=== PATIENT | male | born 1980 | race Caucasian/White ===

== ENCOUNTER 2018-09-28 16:48 | Inpatient (IN) | payer MEDICARE, MEDICAID, SELFPAY ==
[2018-09-28 16:49] VITALS: BP 147/102; PULSE 83; RESP 18; TEMP 36.7; O2SAT 96; BMI 21.9
--- NOTE | 2018-09-28 17:10 | EKG12_ITS ---
Test Reason : HYPERGLYCEMIA Blood Pressure : / mmHG Vent. Rate : 075 BPM Atrial Rate : 075 BPM P-R Int : 158 ms QRS Dur : 088 ms QT Int : 362 ms P-R-T Axes : 047 011 006 degrees QTc Int : 404 ms Normal sinus rhythm Nonspecific T Wave Abnormality Abnormal ECG Confirmed by HARVEY ESPINOZA, MEAGAN ([id number]), photographic editor HORACE SU ([id number]) on 10/01/2018 1:13:12 PM Referred By: BLAYNE Confirmed By:MEAGAN GABRIEL MD
[2018-09-28 17:15] LABS: Bedside Glucose > 500 mg/dL (70-110)
[2018-09-28] MEDS: 0.9% Normal Saline 1,000 ML 1000 ML IV ×2 (17:37→19:00)
[2018-09-28 17:42] LABS: Absolute Lymphocyte Count 1.76 X10^3/ul (0.83-4.51); Absolute Neutrophil Count 4.3 X10^3/uL (2.0-7.7); Basophil# 0.04 X10^3/uL; Basophil% 0.6 % (0-1); Eosinophil# 0.28 X10^3/uL; Eosinophils% 4.2 % (0-5); Hematocrit 38.9 % (40-54); Hemoglobin 14.2 g/dl (13.0-16.5); Lymphocyte # 1.76 X10^3/ul (4.0); Lymphocyte % 26.3 % (19-41); Mean Corp Hgb Conc 36.5 g/gl (32-36); Mean Corpuscular Hgb 29.6 pg (27.0-32.0); Monocyte% 4.5 % (0-10); Neutrophil # 4.28 X10^3/uL (2.7-7.7); Neutrophil % 64.1 % (47-70); POSITIVE COUNT NO; POSITIVE DIFFERENTIAL NO; POSITIVE MORPHOLOGY NO; Platelet Count 185 K/mm3 (150-450); RBC Distribution Width CV 12.2 % (11.6-14.6); RBC Distribution Width SD 35.5 fl (35.1-43.9); White Blood Count 6.7 K/mm3 (4.4-11.0)
[2018-09-28 17:43] LABS: International Normalized Ratio 0.9; Prothrombin Time (Protime)PT. 12.3 SECONDS (11.7-14.9)
[2018-09-28 17:44] LABS: Partial Thromboplast Time 24.4 Seconds (24.1-36.2)
[2018-09-28 17:52] LABS: Bacteria 0 SEEN /hpf (None Seen); Mucous, Urine 0 SEEN /hpf (<or=2+); Red Blood Cells-Urine 0 SEEN /hpf (0-5); Squamous Epithelial Cells - UA 0 SEEN /hpf (0-5); White Blood Cells 0 SEEN /hpf (0-5)
[2018-09-28 17:57] LABS: Color, Urine Yellow (Yellow); Glucose, Dipstick 1000 mg/dl (Normal); Ketone-Dipstick 5 mg/dl (Negative); Leukocyte Esterase-Dipstick Negative /ul (Negative); Nitrite-Dipstick Negative (Negative); Occult Blood-Urine Negative /ul (Negative); Protein-Dipstick Negative (Negative); Specific Gravity, Urine 1.005 (1.002-1.030); Urine Bilirubin Dipstick Negative (Negative); Urine Clarity Clear (Clear); Urine Urobilinogen Normal (Normal); Urine pH 6.5 (5.0 - 8.0)
[2018-09-28 18:02] LABS: AST(SGOT) 47 U/L (15-37); Alanine Aminotransfer ALT/SGPT 92 U/L (16-61); Albumin, Serum 3.3 g/dL (3.2-5.0); Alkaline Phosphatase 278 U/L (45-117); Anion Gap 7 (5-15); BUN 20 mg/dL (7-18); BUN/Creat Ratio 14.3 RATIO (10-20); Bilirubin, Direct 0.17 mg/dL (0.00-0.30); Calcium,Total 9.2 mg/dL (8.5-10.1); Chloride 86 mmol/L (98-107); EST Glomerular Filtration Rate 60 mL/min (>60); Est Glom Filt Rate - Afr Amer 73 mL/min (>60); Estimated Creatinine Clearance 74.17 ml/min; Globulin 3.7 g/dL (2.2-4.2); Glucose 682 mg/dL (74-106); Lipase 90 U/L (73-393); Potassium 3.4 mmol/L (3.5-5.1); Sodium Level 125 mmol/L (136-145)
--- NOTE | 2018-09-28 18:02 | ED.RN ---
GLUCOSE [id number], DR. CISNEROS AWARE.
[2018-09-28 18:17] LABS: Lactic Acid 0.8 mmol/L (0.4-2.0)
--- NOTE | 2018-09-28 19:02 | ED.DCSUM_ITS ---
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 He went to urgent care because of urinary frequency. He has had a 20 pound weight loss over the past couple weeks. He states he is thirsty all the time. They took his blood sugar was greater than 600. He has no history of diabetes. No fevers. Physical Examination: Afebrile vital signs stable Gen: Well-nourished well-developed Head: Normocephalic atraumatic Eyes: Perrl EOMI ENT: TMs clear no rhinorrhea dry mucous membranes Neck: Supple no lymphadenopathy no JVD nontender CVS: Regular rate rhythm no murmurs normal S1-S2 Respiratory: No distress clear to auscultation bilaterally chest nontender Abdomen: Soft nontender nondistended normal bowel sounds no masses Back: Nontender Extremity: Nontender no edema Skin: Normal color no rash Neuro: alert orientated ?3 CN II-XII intact normal strength sensation Psych: Normal affect normal mood Test Results: Initial BG T greater than 500. CBC normal. Chemistries sodium 125 potassium 3.4 chloride of 86 BUN 21.4. Blood sugar noted to be 682. Lactic acid normal. Ketones negative. Emergency Department Course and Treatment: Appears to be in HHS in a catabolic state. he received IV fluids 2 L and then started on insulin drip. Patient will be admitted to the hospital. Impression: 1. Hyperosmolar hyperglycemic state 2. Critical care time 35 minutes This note was generated with [employer] dictation software. It may contain incorrect words, spelling, and punctuation that were not noted in review of the chart prior to signing ED Disposition - Plan for ED Patient: Referrals: Fitz Gómez MD [Primary Care Provider] -
[2018-09-28 19:28] VITALS: BP 149/94; PULSE 66; RESP 18; O2SAT 97
[2018-09-28 19:36] LABS: Bedside Glucose 473 mg/dL (70-110)
--- NOTE | 2018-09-28 19:36 | HP.PCM_ITS ---
History of Present Illness Date of Admission: 09/28/18 Chief Complaint: Frequency of urination, excessive thirst, lethargy. The patient is a 38 year old M with a past medical history of Asperger's syndrome and lives in a correction. Patient works with [employer] here in [facility]. He went to an urgent care facility today on account of urinary frequency. Patient states his been having urinary frequency and frequent thirst for the past few months as well as significant weight loss. Patient and his family thinks he is lost about 20 pounds since May 2017. Patient states he has been telling the staff in the correction where he lives about his symptoms but nothing had been done about it. His blood sugar was checked in the urgent care center today and was more than 600. Patient has no history of diabetes and he is adopted and does not know his family history. Parents also could not give any further information about family history. Review of symptoms otherwise negative. On admission in the ED, blood glucose was 682. Vitals were otherwise stable. CBC was unremarkable and BMP was significant for potassium of 3.4 and sodium of 125. Bicarb was 32 and anion gap was 7 and creatinine was 1.4. AST and ALT as well as ALP were also mildly elevated. He has been admitted to be managed for hyperglycemia and newly diagnosed diabetic. [] Past Medical History Allergies clindamycin Adverse Reaction (Verified 09/28/18 16:52) Unknown Home Medications: Ambulatory Orders Medication Instructions Recorded Fluoxetine [Prozac] 60 mg PO DAILY 05/23/13 Methylphenidate HCl [Methylin] 20 mg PO DAILY 05/23/13 Propranolol HCl [Inderal LA] 80 mg PO BID 05/23/13 Ranitidine [Zantac] 150 mg PO BID 05/23/13 Risperidone [Risperidone M-Tab] 1 mg PO DAILY 05/23/13 Sumatriptan Succinate [Imitrex] 50 mg PO .X1 PRN PRN 12/17/16 Amitriptyline HCl 25 mg PO QHS 09/28/18 Surgical History: no surgical history Psychiatric History: No pertinent psych hx, - - Asperger's syndrome Lives: - - in correction Smoking Status: Current every day smoker Tobacco Use: Cigarettes Alcohol: None Drugs: None - *Family History Maternal History Items: - - unknown, patient is adopted Paternal History Items: Unknown Review of Systems Constitutional: Reports: Malaise, Weakness, Weight Change - weight loss, Fatigue. Denies: Anorexia, Chills, Fever, Night Sweats Eyes: Denies: Blurred vision HEENT: Denies: Head Aches, Sinus Congestion, Sinus Drainage Cardiovascular: Denies: Chest Pain, Palpitations Respiratory: Denies: Cough, Shortness of breath at rest, Sputum production Gastrointestinal: Denies: Abdominal Pain, Diarrhea, Dyspepsia, Nausea, Vomiting Genitourinary: Reports: Frequency. Denies: Dysuria, Hesitancy Musculoskeletal: Denies: Joint Pain, Joint Tenderness Skin: Denies: Rash, Wounds Neurological: Denies: Numbness, Tingling, Focal weakness Psychiatric: Denies: Anxiety, Depression, Homicidal Ideations, Suicidal Ideations Endocrine: Reports: Polydipsia, Polyuria Hematologic/ Lymphatic: Denies: Easy Bruising, Easy Bleeding VTE Information - Inpt Only VTE Present on Admission: No VTE Pharm Prophylaxis ordered?: Yes - Physical Exam General: Alert, Oriented x3, Cooperative, No apparent distress, Lethargic HEENT: Atraumatic, PERRLA, EOMI, Normocephalic Oral: Dry Mucosa Neck: Supple, No JVD, Negative Carotid Bruits Lungs: Clear to auscultation, Normal air movement, No rhonchi, No wheeze, No rales Cardiovascular: Regular rate, Regular Rhythm, Normal S1, Normal S2, No murmurs Abdomen: Bowel Sounds Present, Soft, Non Tender, Non-Distended, No Hepato- splenomegaly Extremities: No clubbing, No cyanosis, No edema, Capillary Refill Less than 3 Seconds Skin: No rashes, No breakdown Musculoskeletal: No Tenderness to Palpation of Joints or Extremities Lymphatic: No Cervical, Supraclavicular, or Inguinal Adenopathy Neurological: Cranial nerves II-XII grossly intact, Neuro grossly intact, Motor Exam 5/5 strength throughout Psych/Mental Status: Flat Affect, Alert and oriented to time, place, person, mood and affect Vital Signs Temp Pulse Resp BP Pulse Ox 98.0 F 66 18 149/94 H 97 09/28/18 16:49 09/28/18 19:28 09/28/18 19:28 09/28/18 19:28 09/28/18 19:28 Oxygen Delivery Method Room Air Weight: 161 lb 9.581 oz Body Mass Index (BMI) 21.9 Laboratory Tests Past 24 Hrs 09/28/18 09/28/18 09/28/18 17:25 17:25 17:25 WBC 6.7 RBC 4.80 Hgb 14.2 Hct 38.9 L MCV 81.0 MCH 29.6 MCHC 36.5 H RDW 12.2 RDW Differential 35.5 Plt Count 185 MPV 10.0 Immature Gran % (Auto) 0.300 Neut % (Auto) 64.1 Lymph % (Auto) 26.3 [place] % (Auto) 4.5 Eos % (Auto) 4.2 Baso % (Auto) 0.6 Absolute Neuts (auto) 4.3 Absolute Lymphs (auto) 1.76 Total Counted Not Reportable PT 12.3 INR 0.9 APTT 24.4 Sodium 125 L Potassium 3.4 L Chloride 86 L Carbon Dioxide 32.0 Anion Gap 7 BUN 20 H Creatinine 1.40 H Estim Creat Clear Calc 74.17 Est GFR (MDRD) Af Amer 73 Est GFR (MDRD) Non-Af 60 BUN/Creatinine Ratio 14.3 Glucose 682 H* Lactic Acid Calcium 9.2 Total Bilirubin 0.80 Direct Bilirubin 0.17 AST 47 H ALT 92 H Alkaline Phosphatase 278 H Total Protein 7.0 Albumin 3.3 Globulin 3.7 Lipase 90 Urine Color Urine Clarity Urine pH Ur Specific [place] Urine Protein Urine Glucose (UA) Urine Ketones Urine Occult Blood Urine Nitrite Urine Bilirubin Urine Urobilinogen Ur Leukocyte Esterase Urine RBC Urine WBC Ur Squamous Epith Cells Urine Bacteria Urine Mucus Acetone Level 09/28/18 09/28/18 09/28/18 17:25 17:25 17:46 WBC RBC Hgb Hct MCV MCH MCHC RDW RDW Differential Plt Count MPV Immature Gran % (Auto) Neut % (Auto) Lymph % (Auto) [place] % (Auto) Eos % (Auto) Baso % (Auto) Absolute Neuts (auto) Absolute Lymphs (auto) Total Counted PT INR APTT Sodium Potassium Chloride Carbon Dioxide Anion Gap BUN Creatinine Estim Creat Clear Calc Est GFR (MDRD) Af Amer Est GFR (MDRD) Non-Af BUN/Creatinine Ratio Glucose Lactic Acid 0.8 Calcium Total Bilirubin Direct Bilirubin AST ALT Alkaline Phosphatase Total Protein Albumin Globulin Lipase Urine Color Yellow Urine Clarity Clear Urine pH 6.5 Ur Specific [place] 1.005 Urine Protein Negative Urine Glucose (UA) 1000 H Urine Ketones 5 H Urine Occult Blood Negative Urine Nitrite Negative Urine Bilirubin Negative Urine Urobilinogen Normal Ur Leukocyte Esterase Negative Urine RBC 0 SEEN Urine WBC 0 SEEN Ur Squamous Epith Cells 0 SEEN Urine Bacteria 0 SEEN Urine Mucus 0 SEEN Acetone Level NEGATIVE POC Glucose 09/28/18 17:10 POC Glucose > 500 H* Assessment/Plan 38-year-old male admitted with a complaint of weight loss, polyuria and polydipsia. 1. Hyperglycemia in a newly diagnosed diabetic * Blood sugar was 682 on admission. * Sodium was 125 and anion gap was only 7 with bicarb of 32. * Hydrated with IV fluid normal saline at 250 cc/h. Started on insulin drip. We will continue until blood sugar normalizes. * Check A1c. * will check C peptide and RAFAEL autoantibodies to help see if its type 1 or type 2 diabetes mellitus * to start on oral metformin once blood sugar trends down and Cr improves * choice of additional oral antidiabetic and/or insulin to be determined per A1C * Consult dietitian for advice about diabetic diet. * Also consult case management for discharge planning as patient lives in a correction. 2. Newly diagnosed diabetes mellitus: as under 1. 3. Hyponatremia: * Sodium is 125. This is likely due to hyperglycemia * Sodium corrected for glucose of 682 is 134. * Continue hydration with IV fluid normal saline. * 4. Hypokalemia: Potassium is 3.4. Will replace and monitor. 5. WARD: Creatinine is 1.4. This is likely prerenal due to dehydration from frequency and polyuria. Hydrate with IV fluid normal saline and monitor. 6. Asperger's syndrome: On fluoxetine, methylphenidate, amitriptyline and Risperdal. DVT prophylaxis: Lovenox Code Visit Inpatient E&M: 34887 Init Hosp L3
[2018-09-28 20:11] VITALS: BMI 21.9
[2018-09-28 20:12] VITALS: BP 133/96; PULSE 67; RESP 18; TEMP 36.5; O2SAT 98
[2018-09-28 20:15] VITALS: BMI 21.4
[2018-09-28 20:16] LABS: Bedside Glucose 433 mg/dL (70-110)
[2018-09-28 20:19] VITALS: PULSE 69
[2018-09-28 21:50] LABS: Bedside Glucose 293 mg/dL (70-110)
[2018-09-28 21:51] LABS: Hemoglobin A1c 14.4 % (4.2-6.3)
[2018-09-28 22:18] VITALS: BP 150/94; PULSE 91; RESP 26
[2018-09-28] MEDS: Propranolol LA 80 MG Capsule PO (22:36)
[2018-09-28] MEDS: Famotidine 20 MG Tablet PO (22:36)
[2018-09-28] MEDS: Amitriptyline 25 MG Tablet PO (22:43)
[2018-09-28 22:50] LABS: Bedside Glucose 227 mg/dL (70-110)
[2018-09-28 23:14] VITALS: PULSE 64
[2018-09-28 23:25] LABS: Bedside Glucose 195 mg/dL (70-110)
[2018-09-29] VITALS (12 sets, daily range): BP systolic 118–153; BP diastolic 86–101; PULSE 65–87; RESP 16–20; TEMP 36.3–37.2; O2SAT 95–97
[2018-09-29 00:20] LABS: Bedside Glucose 194 mg/dL (70-110)
[2018-09-29 01:26] LABS: Bedside Glucose 152 mg/dL (70-110)
[2018-09-29 02:21] LABS: Bedside Glucose 114 mg/dL (70-110)
[2018-09-29] MEDS: Dext 5%-0.45% NS 1,000 ML 150 ML IV (03:09)
[2018-09-29 04:06] LABS: Bedside Glucose 121 mg/dL (70-110)
[2018-09-29 04:11] LABS: Bedside Glucose 205 mg/dL (70-110)
[2018-09-29] MEDS: Insulin Lispro 100 UNIT/ML INSULN.PEN SC ×5 (04:22→22:19)
[2018-09-29] MEDS: 0.9% NaCl Peripheral Flush Adult/Peds IV (05:02)
[2018-09-29 06:30] LABS: Absolute Lymphocyte Count 2.32 X10^3/ul (0.83-4.51); Absolute Neutrophil Count 3.9 X10^3/uL (2.0-7.7); Basophil# 0.03 X10^3/uL; Basophil% 0.4 % (0-1); Eosinophils% 5.6 % (0-5); Hematocrit 35.8 % (40-54); Hemoglobin 12.9 g/dl (13.0-16.5); Lymphocyte # 2.32 X10^3/ul (4.0); Lymphocyte % 32.5 % (19-41); Mean Corpuscular Hgb 28.7 pg (27.0-32.0); Mean Corpuscular Volume 79.6 fL (80-94); Monocyte# 0.46 X10^3/uL; Monocyte% 6.5 % (0-10); Neutrophil # 3.91 X10^3/uL (2.7-7.7); Neutrophil % 54.9 % (47-70); Platelet Count 191 K/mm3 (150-450); RBC Distribution Width CV 11.9 % (11.6-14.6); RBC Distribution Width SD 33.9 fl (35.1-43.9); White Blood Count 7.1 K/mm3 (4.4-11.0)
[2018-09-29 06:35] LABS: POSITIVE COUNT NO; POSITIVE DIFFERENTIAL NO; POSITIVE MORPHOLOGY NO
[2018-09-29 07:00] LABS: Bedside Glucose 240 mg/dL (70-110)
[2018-09-29 07:07] LABS: ALB/GLOB Ratio 0.8 RATIO (0.9-2.4); AST(SGOT) 81 U/L (15-37); Alanine Aminotransfer ALT/SGPT 84 U/L (16-61); Albumin, Serum 2.6 g/dL (3.2-5.0); Alkaline Phosphatase 215 U/L (45-117); Anion Gap 10 (5-15); BUN 15 mg/dL (7-18); Chloride 99 mmol/L (98-107); Creatinine, Serum 0.94 mg/dL (0.70-1.30); EST Glomerular Filtration Rate 95 mL/min (>60); Est Glom Filt Rate - Afr Amer 115 mL/min (>60); Estimated Creatinine Clearance 108.36 ml/min; Globulin 3.1 g/dL (2.2-4.2); Glucose 220 mg/dL (74-106); Potassium 2.9 mmol/L (3.5-5.1); Protein, Total 5.7 g/dL (6.4-8.2); Sodium Level 139 mmol/L (136-145)
[2018-09-29] MEDS: Loratadine 10 MG Tablet PO (08:59)
[2018-09-29] MEDS: Famotidine 20 MG Tablet PO ×2 (08:59→22:20)
[2018-09-29] MEDS: RisperiDONE 1 MG Tablet PO (08:59)
[2018-09-29] MEDS: FLUoxetine 20 MG Capsule 60 MG PO (08:59)
[2018-09-29] MEDS: Propranolol LA 80 MG Capsule PO ×2 (08:59→22:20)
[2018-09-29] MEDS: Methylphenidate HCl 5 MG Tablet 10 MG PO ×2 (09:48→15:00)
[2018-09-29] MEDS: Rizatriptan Benzoate 10 MG Tablet PO ×2 (10:54→15:43)
[2018-09-29 11:01] LABS: Bedside Glucose 270 mg/dL (70-110)
--- NOTE | 2018-09-29 11:06 | US_ITS ---
STUDY: ABDOMINAL ULTRASOUND - RIGHT UPPER QUADRANT REASON FOR VISIT: Male, 38 years old. Elevated liver profile TECHNIQUE: Ultrasound evaluation of the right upper quadrant was performed with real-time and static dick-scale imaging. TECHNICAL QUALITY: Adequate. COMPARISON: None. FINDINGS: Liver: The liver measures 16.4 cm. There is normal echogenicity of the liver. The bile ducts are within normal limits. There is hepatic color flow. The direction of portal flow is hepatopetal. There is no demonstrated mass lesion. Gallbladder: Normal distended gallbladder. The gallbladder wall measures 3 mm. There is a negative sonographic Fernández's sign. There is no pericholecystic fluid. There are no gallstones. Common Bile Duct (C.B.D.): The common bile duct measures 4 mm. Pancreas: Pancreatic head is normal. 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 Right Kidney: Normal size of the right kidney. The right kidney measures 10.3 x 4.6 x 4.3 cm. Normal renal cortex. The right cortex measures 1.4 cm. There are right renal cysts. There is no right hydronephrosis. US/Abdomen Limited IMPRESSION: Unremarkable right upper quadrant ultrasound without acute findings. No gallstones. Electronically Signed: Nikki Finney, at 20:47 EDT Tel , Service support ,
--- NOTE | 2018-09-29 11:15 | PCM.PROGNOTE ---
<Dayana Horta - Last Filed: 09/29/18 14:19> Subjective: Patient seen and examined. Feels improved. Denies further dry mouth, frequent urination or other associated symptoms. - Physical Exam General: Alert, Oriented x3, Cooperative HEENT: Atraumatic, PERRLA, EOMI, Normocephalic Neck: Supple, No JVD, Negative Carotid Bruits Lungs: Clear to auscultation, Normal air movement Cardiovascular: Regular rate, Regular Rhythm, Normal S1, Normal S2, No murmurs Abdomen: Bowel Sounds Present, Soft, Non Tender, Non-Distended Extremities: No clubbing, No cyanosis, No edema, Capillary Refill Less than 3 Seconds Skin: No rashes, No breakdown Musculoskeletal: No Tenderness to Palpation of Joints or Extremities Neurological: Cranial nerves II-XII grossly intact, Neuro grossly intact Psych/Mental Status: Normal Affect, Appropriate Vital Signs Temp Pulse Resp BP Pulse Ox 98.9 F 78 18 126/91 H 96 09/29/18 09:01 09/29/18 09:01 09/29/18 09:01 09/29/18 09:01 09/29/18 09:01 Oxygen Delivery Method Room Air Weight: 158 lb 8.198 oz Body Mass Index (BMI) 21.4 Intake and Output for Last 24 Hours 09/27/18 09/28/18 09/29/18 23:59 23:59 23:59 Intake Total 1149.8 / 1149.8 Balance 1149.8 / 1149.8 Laboratory Tests Past 24 Hrs 09/28/18 09/28/18 09/28/18 17:25 17:25 17:25 WBC 6.7 RBC 4.80 Hgb 14.2 Hct 38.9 L MCV 81.0 MCH 29.6 MCHC 36.5 H RDW 12.2 RDW Differential 35.5 Plt Count 185 MPV 10.0 Immature Gran % (Auto) 0.300 Neut % (Auto) 64.1 Lymph % (Auto) 26.3 [place] % (Auto) 4.5 Eos % (Auto) 4.2 Baso % (Auto) 0.6 Absolute Neuts (auto) 4.3 Absolute Lymphs (auto) 1.76 Total Counted Not Reportable PT 12.3 INR 0.9 APTT 24.4 Sodium 125 L Potassium 3.4 L Chloride 86 L Carbon Dioxide 32.0 Anion Gap 7 BUN 20 H Creatinine 1.40 H Estim Creat Clear Calc 74.17 Est GFR (MDRD) Af Amer 73 Est GFR (MDRD) Non-Af 60 BUN/Creatinine Ratio 14.3 Glucose 682 H* Hemoglobin A1c C-Peptide Lactic Acid Calcium 9.2 Total Bilirubin 0.80 Direct Bilirubin 0.17 GGT AST 47 H ALT 92 H Alkaline Phosphatase 278 H Total Protein 7.0 Albumin 3.3 Globulin 3.7 Albumin/Globulin Ratio Lipase 90 Urine Color Urine Clarity Urine pH Ur Specific [place] Urine Protein Urine Glucose (UA) Urine Ketones Urine Occult Blood Urine Nitrite Urine Bilirubin Urine Urobilinogen Ur Leukocyte Esterase Urine RBC Urine WBC Ur Squamous Epith Cells Urine Bacteria Urine Mucus [place] Level 09/28/18 09/28/18 09/28/18 17:25 17:25 17:25 WBC RBC Hgb Hct MCV MCH MCHC RDW RDW Differential Plt Count MPV Immature Gran % (Auto) Neut % (Auto) Lymph % (Auto) [place] % (Auto) Eos % (Auto) Baso % (Auto) Absolute Neuts (auto) Absolute Lymphs (auto) Total Counted PT INR APTT Sodium Potassium Chloride Carbon Dioxide Anion Gap BUN Creatinine Estim Creat Clear Calc Est GFR (MDRD) Af Amer Est GFR (MDRD) Non-Af BUN/Creatinine Ratio Glucose Hemoglobin A1c 14.4 H C-Peptide Lactic Acid 0.8 Calcium Total Bilirubin Direct Bilirubin GGT AST ALT Alkaline Phosphatase Total Protein Albumin Globulin Albumin/Globulin Ratio Lipase Urine Color Urine Clarity Urine pH Ur Specific [place] Urine Protein Urine Glucose (UA) Urine Ketones Urine Occult Blood Urine Nitrite Urine Bilirubin Urine Urobilinogen Ur Leukocyte Esterase Urine RBC Urine WBC Ur Squamous Epith Cells Urine Bacteria Urine Mucus [place] Level NEGATIVE 09/28/18 09/28/18 09/29/18 17:25 17:46 05:05 WBC 7.1 RBC 4.50 L Hgb 12.9 L Hct 35.8 L MCV 79.6 L MCH 28.7 MCHC 36.0 RDW 11.9 RDW Differential 33.9 L Plt Count 191 MPV 10.0 Immature Gran % (Auto) 0.100 Neut % (Auto) 54.9 Lymph % (Auto) 32.5 [place] % (Auto) 6.5 Eos % (Auto) 5.6 H Baso % (Auto) 0.4 Absolute Neuts (auto) 3.9 Absolute Lymphs (auto) 2.32 Total Counted Not Reportable PT INR APTT Sodium Potassium Chloride Carbon Dioxide Anion Gap BUN Creatinine Estim Creat Clear Calc Est GFR (MDRD) Af Amer Est GFR (MDRD) Non-Af BUN/Creatinine Ratio Glucose Hemoglobin A1c C-Peptide Pending Lactic Acid Calcium Total Bilirubin Direct Bilirubin GGT AST ALT Alkaline Phosphatase Total Protein Albumin Globulin Albumin/Globulin Ratio Lipase Urine Color Yellow Urine Clarity Clear Urine pH 6.5 Ur Specific [place] 1.005 Urine Protein Negative Urine Glucose (UA) 1000 H Urine Ketones 5 H Urine Occult Blood Negative Urine Nitrite Negative Urine Bilirubin Negative Urine Urobilinogen Normal Ur Leukocyte Esterase Negative Urine RBC 0 SEEN Urine WBC 0 SEEN Ur Squamous Epith Cells 0 SEEN Urine Bacteria 0 SEEN Urine Mucus 0 SEEN Acetone Level 09/29/18 09/29/18 05:05 05:05 WBC RBC Hgb Hct MCV MCH MCHC RDW RDW Differential Plt Count MPV Immature Gran % (Auto) Neut % (Auto) Lymph % (Auto) [place] % (Auto) Eos % (Auto) Baso % (Auto) Absolute Neuts (auto) Absolute Lymphs (auto) Total Counted PT INR APTT Sodium 139 Potassium 2.9 L Chloride 99 Carbon Dioxide 30.0 Anion Gap 10 BUN 15 Creatinine 0.94 Estim Creat Clear Calc 108.36 Est GFR (MDRD) Af Amer 115 Est GFR (MDRD) Non-Af 95 BUN/Creatinine Ratio 16.0 Glucose 220 H Hemoglobin A1c C-Peptide Lactic Acid Calcium 8.0 L Total Bilirubin 0.60 Direct Bilirubin GGT Pending AST 81 H ALT 84 H Alkaline Phosphatase 215 H Total Protein 5.7 L Albumin 2.6 L Globulin 3.1 Albumin/Globulin Ratio 0.8 L Lipase Urine Color Urine Clarity Urine pH Ur Specific [place] Urine Protein Urine Glucose (UA) Urine Ketones Urine Occult Blood Urine Nitrite Urine Bilirubin Urine Urobilinogen Ur Leukocyte Esterase Urine RBC Urine WBC Ur Squamous Epith Cells Urine Bacteria Urine Mucus [place] Level POC Glucose 09/29/18 09/29/18 09/29/18 10:50 06:33 04:07 POC Glucose 270 H 240 H 205 H 09/29/18 09/29/18 09/29/18 03:17 02:17 01:18 POC Glucose 121 H 114 H 152 H 09/29/18 09/28/18 09/28/18 00:15 23:17 22:15 POC Glucose 194 H 195 H 227 H 09/28/18 09/28/18 09/28/18 21:17 20:07 19:23 POC Glucose 293 H 433 H 473 H* 09/28/18 17:10 POC Glucose > 500 H* Medical Necessity - Tobacco Use Smoking Status: Current every day smoker Tobacco Use: Cigarettes Assessment/Plan 1. HHS in the context of new diagnosis diabetes-hemoglobin A1c 14.4%. Glucose on admission 682. Continue Lantus 20 units subcu daily and Humalog ACHS sliding scale insulin. Glucose significantly improved. Patient lives in long-term and will have assistance administering insulin. Unclear etiology of new diagnosis. R/O secondary causes. CT abdomen pending to assess pancreas. Patient's antipsychotic regimen, specifically risperidone is known to increase insulin resistance and diminished insulin secretion. However this would not account for HA1C 14.4%. C-peptide pending. Check anti RAFAEL antibodies. 2. Elevated AST/ALT/alkaline phosphatase-unclear etiology. Right upper quadrant ultrasound and CT of abdomen pending. Hepatitis panel ordered. 3. Hyponatremia-secondary to #1. Resolved. 4. Hypokalemia-secondary to #1. Replaced per protocol. Trend BMP. 5. Acute kidney injury-secondary to #1. Resolved with aggressive IV hydration. 6. Asperger's syndrome-continue home amitriptyline, fluoxetine, methylphenidate, risperidone. 7. Chronic migraines-continue propranolol, PRN rizatriptan. 8. Recent 20 pound weight loss-secondary to #1. Nutrition consult. DVT prophylaxis-Lovenox subcu This patient was seen by TERRI Estevez under the supervision of Dr. Strong. <Juan Strong - Last Filed: 09/29/18 14:37> Subjective: The patient was admitted with polyuria, polydipsia and polyphagia and blood sugar more than 600 consistent with new onset diabetes mellitus. Patient LFTs also elevated predominantly transaminases and alkaline phosphatase. Denies any prior history with liver disease, gallbladder or pancreas. Patient does not drink alcohol. Patient denies any substance use. Patient does not have history of viral hepatitis. Patient is on Maxalt for as needed migraine headache Patient's sugar is elevated. Patient is adopted therefore unclear about family history of diabetes mellitus. - Physical Exam General: Alert, Oriented x3, Cooperative HEENT: Atraumatic, PERRLA, EOMI, Normocephalic Neck: Supple, No JVD, Negative Carotid Bruits Lungs: Clear to auscultation, Normal air movement, No rhonchi, No wheeze, No rales Cardiovascular: Regular rate, Regular Rhythm, Normal S1, Normal S2, No murmurs Abdomen: Bowel Sounds Present, Soft, Non Tender Extremities: No edema, Capillary Refill Less than 3 Seconds Skin: No rashes, No breakdown Musculoskeletal: No Tenderness to Palpation of Joints or Extremities Neurological: Cranial nerves II-XII grossly intact, Deep Tendon Reflexes 2+/4 and Symmetrical, Neuro grossly intact, - Psych/Mental Status: Normal Affect, Appropriate Vital Signs Temp Pulse Resp BP Pulse Ox 98.9 F 78 18 126/91 H 96 09/29/18 09:01 09/29/18 09:01 09/29/18 09:01 09/29/18 09:01 09/29/18 09:01 Oxygen Delivery Method Room Air Weight: 158 lb 8.198 oz Body Mass Index (BMI) 21.4 Intake and Output for Last 24 Hours 09/27/18 09/28/18 09/29/18 23:59 23:59 23:59 Intake Total 1699.8 / 1699.8 Balance 1699.8 / 1699.8 Laboratory Tests Past 24 Hrs 09/28/18 09/28/18 09/28/18 17:25 17:25 17:25 WBC 6.7 RBC 4.80 Hgb 14.2 Hct 38.9 L MCV 81.0 MCH 29.6 MCHC 36.5 H RDW 12.2 RDW Differential 35.5 Plt Count 185 MPV 10.0 Immature Gran % (Auto) 0.300 Neut % (Auto) 64.1 Lymph % (Auto) 26.3 [place] % (Auto) 4.5 Eos % (Auto) 4.2 Baso % (Auto) 0.6 Absolute Neuts (auto) 4.3 Absolute Lymphs (auto) 1.76 Total Counted Not Reportable PT 12.3 INR 0.9 APTT 24.4 Sodium 125 L Potassium 3.4 L Chloride 86 L Carbon Dioxide 32.0 Anion Gap 7 BUN 20 H Creatinine 1.40 H Estim Creat Clear Calc 74.17 Est GFR (MDRD) Af Amer 73 Est GFR (MDRD) Non-Af 60 BUN/Creatinine Ratio 14.3 Glucose 682 H* Hemoglobin A1c C-Peptide Lactic Acid Calcium 9.2 Total Bilirubin 0.80 Direct Bilirubin 0.17 GGT AST 47 H ALT 92 H Alkaline Phosphatase 278 H Total Protein 7.0 Albumin 3.3 Globulin 3.7 Albumin/Globulin Ratio Lipase 90 TSH Urine Color Urine Clarity Urine pH Ur Specific [place] Urine Protein Urine Glucose (UA) Urine Ketones Urine Occult Blood Urine Nitrite Urine Bilirubin Urine Urobilinogen Ur Leukocyte Esterase Urine RBC Urine WBC Ur Squamous Epith Cells Urine Bacteria Urine Mucus [place] Level Hepatitis A IgM Ab Hepatitis A Ab Total Hep Bs Antigen Hep B Core Total Ab Hep B Core IgM Ab 09/28/18 09/28/18 09/28/18 17:25 17:25 17:25 WBC RBC Hgb Hct MCV MCH MCHC RDW RDW Differential Plt Count MPV Immature Gran % (Auto) Neut % (Auto) Lymph % (Auto) [place] % (Auto) Eos % (Auto) Baso % (Auto) Absolute Neuts (auto) Absolute Lymphs (auto) Total Counted PT INR APTT Sodium Potassium Chloride Carbon Dioxide Anion Gap BUN Creatinine Estim Creat Clear Calc Est GFR (MDRD) Af Amer Est GFR (MDRD) Non-Af BUN/Creatinine Ratio Glucose Hemoglobin A1c 14.4 H C-Peptide Lactic Acid 0.8 Calcium Total Bilirubin Direct Bilirubin GGT AST ALT Alkaline Phosphatase Total Protein Albumin Globulin Albumin/Globulin Ratio Lipase TSH Urine Color Urine Clarity Urine pH Ur Specific [place] Urine Protein Urine Glucose (UA) Urine Ketones Urine Occult Blood Urine Nitrite Urine Bilirubin Urine Urobilinogen Ur Leukocyte Esterase Urine RBC Urine WBC Ur Squamous Epith Cells Urine Bacteria Urine Mucus [place] Level NEGATIVE Hepatitis A IgM Ab Hepatitis A Ab Total Hep Bs Antigen Hep B Core Total Ab Hep B Core IgM Ab 09/28/18 09/28/18 09/28/18 17:25 17:25 17:46 WBC RBC Hgb Hct MCV MCH MCHC RDW RDW Differential Plt Count MPV Immature Gran % (Auto) Neut % (Auto) Lymph % (Auto) [place] % (Auto) Eos % (Auto) Baso % (Auto) Absolute Neuts (auto) Absolute Lymphs (auto) Total Counted PT INR APTT Sodium Potassium Chloride Carbon Dioxide Anion Gap BUN Creatinine Estim Creat Clear Calc Est GFR (MDRD) Af Amer Est GFR (MDRD) Non-Af BUN/Creatinine Ratio Glucose Hemoglobin A1c C-Peptide Pending Lactic Acid Calcium Total Bilirubin Direct Bilirubin GGT AST ALT Alkaline Phosphatase Total Protein Albumin Globulin Albumin/Globulin Ratio Lipase TSH Urine Color Yellow Urine Clarity Clear Urine pH 6.5 Ur Specific [place] 1.005 Urine Protein Negative Urine Glucose (UA) 1000 H Urine Ketones 5 H Urine Occult Blood Negative Urine Nitrite Negative Urine Bilirubin Negative Urine Urobilinogen Normal Ur Leukocyte Esterase Negative Urine RBC 0 SEEN Urine WBC 0 SEEN Ur Squamous Epith Cells 0 SEEN Urine Bacteria 0 SEEN Urine Mucus 0 SEEN [place] Level Hepatitis A IgM Ab Pending Hepatitis A Ab Total Pending Hep Bs Antigen Pending Hep B Core Total Ab Pending Hep B Core IgM Ab Pending 09/29/18 09/29/18 09/29/18 05:05 05:05 05:05 WBC 7.1 RBC 4.50 L Hgb 12.9 L Hct 35.8 L MCV 79.6 L MCH 28.7 MCHC 36.0 RDW 11.9 RDW Differential 33.9 L Plt Count 191 MPV 10.0 Immature Gran % (Auto) 0.100 Neut % (Auto) 54.9 Lymph % (Auto) 32.5 [place] % (Auto) 6.5 Eos % (Auto) 5.6 H Baso % (Auto) 0.4 Absolute Neuts (auto) 3.9 Absolute Lymphs (auto) 2.32 Total Counted Not Reportable PT INR APTT Sodium 139 Potassium 2.9 L Chloride 99 Carbon Dioxide 30.0 Anion Gap 10 BUN 15 Creatinine 0.94 Estim Creat Clear Calc 108.36 Est GFR (MDRD) Af Amer 115 Est GFR (MDRD) Non-Af 95 BUN/Creatinine Ratio 16.0 Glucose 220 H Hemoglobin A1c C-Peptide Lactic Acid Calcium 8.0 L Total Bilirubin 0.60 Direct Bilirubin GGT 667 H AST 81 H ALT 84 H Alkaline Phosphatase 215 H Total Protein 5.7 L Albumin 2.6 L Globulin 3.1 Albumin/Globulin Ratio 0.8 L Lipase TSH Urine Color Urine Clarity Urine pH Ur Specific [place] Urine Protein Urine Glucose (UA) Urine Ketones Urine Occult Blood Urine Nitrite Urine Bilirubin Urine Urobilinogen Ur Leukocyte Esterase Urine RBC Urine WBC Ur Squamous Epith Cells Urine Bacteria Urine Mucus [place] Level Hepatitis A IgM Ab Hepatitis A Ab Total Hep Bs Antigen Hep B Core Total Ab Hep B Core IgM Ab 09/29/18 09/29/18 05:05 14:10 WBC RBC Hgb Hct MCV MCH MCHC RDW RDW Differential Plt Count MPV Immature Gran % (Auto) Neut % (Auto) Lymph % (Auto) [place] % (Auto) Eos % (Auto) Baso % (Auto) Absolute Neuts (auto) Absolute Lymphs (auto) Total Counted PT INR APTT Sodium Potassium 3.3 L Chloride Carbon Dioxide Anion Gap BUN Creatinine Estim Creat Clear Calc Est GFR (MDRD) Af Amer Est GFR (MDRD) Non-Af BUN/Creatinine Ratio Glucose Hemoglobin A1c C-Peptide Lactic Acid Calcium Total Bilirubin Direct Bilirubin GGT AST ALT Alkaline Phosphatase Total Protein Albumin Globulin Albumin/Globulin Ratio Lipase TSH 0.95 Urine Color Urine Clarity Urine pH Ur Specific [place] Urine Protein Urine Glucose (UA) Urine Ketones Urine Occult Blood Urine Nitrite Urine Bilirubin Urine Urobilinogen Ur Leukocyte Esterase Urine RBC Urine WBC Ur Squamous Epith Cells Urine Bacteria Urine Mucus [place] Level Hepatitis A IgM Ab Hepatitis A Ab Total Hep Bs Antigen Hep B Core Total Ab Hep B Core IgM Ab POC Glucose 09/29/18 09/29/18 09/29/18 10:50 06:33 04:07 POC Glucose 270 H 240 H 205 H 09/29/18 09/29/18 09/29/18 03:17 02:17 01:18 POC Glucose 121 H 114 H 152 H 09/29/18 09/28/18 09/28/18 00:15 23:17 22:15 POC Glucose 194 H 195 H 227 H 09/28/18 09/28/18 09/28/18 21:17 20:07 19:23 POC Glucose 293 H 433 H 473 H* 09/28/18 17:10 POC Glucose > 500 H* Assessment/Plan This patient was seen in conjunction with TELETYPESETTER MONITOR, Dayana. I have independently interviewed and examined the patient and reviewed pertinent history, examination findings, laboratory and plan of management. I have reviewed the note and agree with the documented findings with the few additional points. In brief, patient is admitted for new diagnosis of diabetes with hyperosmolar hyperglycemic state. A1c 14.4%. Admitting glucose was 682. Glucose is relatively controlled. Glucose 222 in BMP. TSH normal potassium is still low 3.3. Patient LFT is elevated, AST 81, AST 84, ratio 1 is to 1. A/G ratio 0.8. Alkaline phosphatase 215. GGT 667. Right upper quadrant sonogram ordered. Patient does not have abdominal pain. I have discussed my assessment with TELETYPESETTER MONITORDayana and orders have been reviewed. Laboratory Results 09/29/18 05:05: Sodium 139, Potassium 2.9 L, Chloride 99, Carbon Dioxide 30.0, Anion Gap 10, BUN 15, Creatinine 0.94, Estim Creat Clear Calc 108.36, Est GFR (MDRD) Af Amer 115, Est GFR (MDRD) Non-Af 95, BUN/Creatinine Ratio 16.0, Glucose 220 H, Calcium 8.0 L, Total Bilirubin 0.60, AST 81 H, ALT 84 H, Alkaline Phosphatase 215 H, Total Protein 5.7 L, Albumin 2.6 L, Globulin 3.1, Albumin/Globulin Ratio 0.8 L 09/29/18 05:05: GGT 667 H 09/29/18 05:05: TSH 0.95 09/29/18 06:33: POC Glucose 240 H 09/29/18 10:50: POC Glucose 270 H 09/29/18 14:10: Potassium 3.3 L Code Visit Inpatient E&M: 53350 Subs Hosp L2
[2018-09-29 11:25] LABS: GGTP 667 U/L (15-85)
[2018-09-29 11:43] LABS: Thyroid Stim Hormone (TSH) 0.95 uIU/mL (0.358-3.74)
--- NOTE | 2018-09-29 12:08 | CT_ITS ---
STUDY: CT ABDOMEN AND PELVIS WITH CONTRAST REASON FOR EXAM: Male, 38 years old. New onset diabetes RADIATION DOSAGE (If Supplied By Facility): CTDIvol = ( 11.35 ) mGy, DLP = ( 1197.32 ) mGycm TECHNIQUE: Transaxial images were obtained from the dome of the diaphragm to the symphysis pubis without oral contrast. 100 IV Isovue 300 was administered. Sagittal and coronal images were reconstructed. Delayed imaging performed. Individualized dose optimization techniques were used for this CT. COMPARISON: None. FINDINGS: There is atelectasis in the bilateral lung bases. The visualized portions of the heart are within normal limits. Normal liver. Normal gallbladder and extrahepatic biliary system. Normal spleen. The pancreatic head and proximal pancreatic body are unremarkable. The distal pancreatic body and tail are not seen and may be atrophic or congenitally absent. Normal bilateral adrenal glands. There are simple cysts of the bilateral kidneys. No hydronephrosis or perinephric fluid collection. Normal visualized stomach. Normal small intestine. Normal colon. The appendix is visualized and appears normal. Normal abdominal aorta. Normal inferior vena cava. Normal retroperitoneum. Normal urinary bladder. There is a small umbilical hernia containing fat. Normal osseous structures. CT/Abdomen/Pelvis W IV Cont ONLY IMPRESSION: 1. No enhancing pancreatic mass. 2. Distal pancreatic atrophy or congenital absence. 3. Simple bilateral renal cysts. 4. Bibasilar atelectasis. Electronically Signed: Easton Murphy MD at 15:15 EDT , Service support ,
[2018-09-29 14:28] LABS: Potassium 3.3 mmol/L (3.5-5.1)
[2018-09-29 16:21] LABS: Bedside Glucose 258 mg/dL (70-110)
[2018-09-29] MEDS: hydrALAZINE 20 MG/ML Vial 5 MG IV (17:29)
[2018-09-29] MEDS: Glucerna Shake 120 ML LIQUID PO ×2 (17:29→22:20)
[2018-09-29] MEDS: Amitriptyline 25 MG Tablet PO (22:20)
[2018-09-29 22:31] LABS: Bedside Glucose 326 mg/dL (70-110)
[2018-09-30] VITALS (8 sets, daily range): BP systolic 127–149; BP diastolic 95–97; PULSE 66–91; RESP 15–18; TEMP 36.3–36.8; O2SAT 97–98
[2018-09-30] MEDS: Insulin Lispro 100 UNIT/ML INSULN.PEN SC ×4 (06:22→23:07)
[2018-09-30 06:45] LABS: Bedside Glucose 267 mg/dL (70-110)
[2018-09-30 07:22] LABS: ALB/GLOB Ratio 0.8 RATIO (0.9-2.4); AST(SGOT) 147 U/L (15-37); Alanine Aminotransfer ALT/SGPT 121 U/L (16-61); Albumin, Serum 2.6 g/dL (3.2-5.0); Alkaline Phosphatase 228 U/L (45-117); Anion Gap 6 (5-15); BUN 14 mg/dL (7-18); BUN/Creat Ratio 14.7 RATIO (10-20); Calcium,Total 8.3 mg/dL (8.5-10.1); Chloride 103 mmol/L (98-107); Creatinine, Serum 0.95 mg/dL (0.70-1.30); EST Glomerular Filtration Rate 94 mL/min (>60); Est Glom Filt Rate - Afr Amer 113 mL/min (>60); Estimated Creatinine Clearance 107.22 ml/min; Globulin 3.2 g/dL (2.2-4.2); Glucose 264 mg/dL (74-106); Potassium 3.4 mmol/L (3.5-5.1); Protein, Total 5.8 g/dL (6.4-8.2); Sodium Level 137 mmol/L (136-145)
[2018-09-30] MEDS: Glucerna Shake 120 ML LIQUID PO ×4 (08:07→20:45)
[2018-09-30] MEDS: Methylphenidate HCl 5 MG Tablet 10 MG PO (08:08)
[2018-09-30] MEDS: Enoxaparin 40 MG/0.4 ML Syringe SC (08:10)
[2018-09-30] MEDS: Famotidine 20 MG Tablet PO ×2 (08:10→20:45)
[2018-09-30] MEDS: FLUoxetine 20 MG Capsule 60 MG PO (08:10)
[2018-09-30] MEDS: Propranolol LA 80 MG Capsule PO ×2 (08:10→20:45)
[2018-09-30] MEDS: Loratadine 10 MG Tablet PO (08:10)
[2018-09-30] MEDS: RisperiDONE 1 MG Tablet PO (08:11)
[2018-09-30] MEDS: 0.9% Normal Saline 1,000 ML 150 ML IV ×2 (11:16→17:38)
[2018-09-30] MEDS: 0.9% NaCl Peripheral Flush Adult/Peds IV (11:16)
[2018-09-30 11:30] LABS: Bedside Glucose 392 mg/dL (70-110)
--- NOTE | 2018-09-30 12:17 | PN_ITS ---
<Dayana Horta - Last Filed: 09/30/18 12:25> Subjective: Patient seen and examined. Denies current complaints. Liver enzymes increased today. Patient requesting nicotine gum. Denies other current complaints. - Physical Exam General: Alert, Oriented x3, Cooperative HEENT: Atraumatic, PERRLA, EOMI, Normocephalic Neck: Supple, No JVD, Negative Carotid Bruits Lungs: Clear to auscultation, Normal air movement Cardiovascular: Regular rate, Regular Rhythm, Normal S1, Normal S2, No murmurs Abdomen: Bowel Sounds Present, Soft, Non Tender, Non-Distended Extremities: No clubbing, No cyanosis, No edema, Capillary Refill Less than 3 Seconds Skin: No rashes, No breakdown Musculoskeletal: No Tenderness to Palpation of Joints or Extremities Neurological: Cranial nerves II-XII grossly intact, Neuro grossly intact Psych/Mental Status: Normal Affect, Appropriate Vital Signs Temp Pulse Resp BP Pulse Ox 97.4 F L 79 18 135/97 H 98 09/30/18 08:04 09/30/18 09:00 09/30/18 08:04 09/30/18 08:04 09/30/18 08:04 Oxygen Delivery Method Room Air Weight: 158 lb 8.198 oz Body Mass Index (BMI) 21.4 Intake and Output for Last 24 Hours 09/28/18 09/29/18 09/30/18 23:59 23:59 23:59 Intake Total 2299.8 / 2299.8 200 / 200 Balance 2299.8 / 2299.8 200 / 200 Laboratory Tests Past 24 Hrs 09/29/18 09/30/18 09/30/18 14:10 06:16 06:16 Sodium 137 Potassium 3.3 L 3.4 L Chloride 103 Carbon Dioxide 28.0 Anion Gap 6 BUN 14 Creatinine 0.95 Estim Creat Clear Calc 107.22 Est GFR (MDRD) Af Amer 113 Est GFR (MDRD) Non-Af 94 BUN/Creatinine Ratio 14.7 Glucose 264 H Calcium 8.3 L Total Bilirubin 0.60 AST 147 H ALT 121 H Alkaline Phosphatase 228 H Total Protein 5.8 L Albumin 2.6 L Globulin 3.2 Albumin/Globulin Ratio 0.8 L Miscellaneous Test Pending POC Glucose 09/30/18 09/30/18 09/29/18 11:24 06:21 22:13 POC Glucose 392 H 267 H 326 H 09/29/18 16:12 POC Glucose 258 H Medical Necessity - Tobacco Use Smoking Status: Current every day smoker Tobacco Use: Cigarettes Assessment/Plan 1. HHS in the context of new diagnosis diabetes-hemoglobin A1c 14.4%. Glucose on admission 682. Glucose initially improved, now upper 200s to 300s. Increase Lantus to 15 units twice daily and Humalog ACHS to high-dose sliding scale. Patient [facility] and will have assistance administering insulin, however he is doing well administering on his own. CT of abdomen and pelvis completed to rule out secondary causes of new diagnosis diabetes. CT of abdomen shows no enhancing pancreatic mass. Distal pancreatic atrophy or congenital absence. Patient's antipsychotic regimen, specifically risperidone is known to increase insulin resistance and diminished insulin secretion. However this would not account for HA1C 14.4%. C-peptide, anti RAFAEL antibodies pending. Glucose monitoring testing supplies prescription in chart for discharge. 2. Elevated AST/ALT/alkaline phosphatase-unclear etiology. Right upper quadrant ultrasound normal. Hepatitis panel ordered. Suspect increased liver panel secondary to #1 as well as medication regimen. Resume IV fluids today and repeat liver panel in a.m. 3. Hyponatremia-secondary to #1. Resolved. 4. Hypokalemia-secondary to #1. Replaced per protocol. Trend BMP. 5. Acute kidney injury-secondary to #1. Resolved with aggressive IV hydration. 6. Asperger's syndrome-continue home amitriptyline, fluoxetine, methylphenidate, risperidone. 7. Chronic migraines-continue propranolol, PRN rizatriptan. 8. Recent 20 pound weight loss-secondary to #1. Nutrition consult. 9. Tobacco dependence-encourage cessation. Patient requesting nicotine gum. DVT prophylaxis-Lovenox subcu This patient was seen by TERRI Estevez under the supervision of Dr. Strong. <Juan Strong - Last Filed: 09/30/18 16:37> Subjective: Patient denies abdominal pain, shortness of breath or chest pain. Liver enzymes increased especially ALT. Patient denies any drug overdose or alcohol use. - Physical Exam General: Alert, Oriented x3, Cooperative HEENT: Atraumatic, PERRLA, EOMI, Normocephalic Neck: Supple, No JVD, Negative Carotid Bruits Lungs: Clear to auscultation, Normal air movement, No rhonchi, No wheeze, No rales Cardiovascular: Regular rate, No murmurs Abdomen: Bowel Sounds Present, Soft, Non Tender, Non-Distended Extremities: No edema, Capillary Refill Less than 3 Seconds Skin: No rashes, No breakdown Musculoskeletal: No Tenderness to Palpation of Joints or Extremities, Arthritic Changes Neurological: Cranial nerves II-XII grossly intact, Deep Tendon Reflexes 2+/4 and Symmetrical, Neuro grossly intact, Motor Exam 5/5 strength throughout Psych/Mental Status: Normal Affect, Appropriate Vital Signs Temp Pulse Resp BP Pulse Ox 98.3 F 68 18 127/95 H 97 09/30/18 14:00 09/30/18 15:00 09/30/18 14:00 09/30/18 14:00 09/30/18 14:00 Oxygen Delivery Method Room Air Weight: 158 lb 8.198 oz Body Mass Index (BMI) 21.4 Intake and Output for Last 24 Hours 09/28/18 09/29/18 09/30/18 23:59 23:59 23:59 Intake Total 2299.8 / 2299.8 1070 / 1070 Balance 2299.8 / 2299.8 1070 / 1070 Laboratory Tests Past 24 Hrs 09/30/18 09/30/18 06:16 06:16 Sodium 137 Potassium 3.4 L Chloride 103 Carbon Dioxide 28.0 Anion Gap 6 BUN 14 Creatinine 0.95 Estim Creat Clear Calc 107.22 Est GFR (MDRD) Af Amer 113 Est GFR (MDRD) Non-Af 94 BUN/Creatinine Ratio 14.7 Glucose 264 H Calcium 8.3 L Total Bilirubin 0.60 AST 147 H ALT 121 H Alkaline Phosphatase 228 H Total Protein 5.8 L Albumin 2.6 L Globulin 3.2 Albumin/Globulin Ratio 0.8 L Miscellaneous Test Pending POC Glucose 09/30/18 09/30/18 09/30/18 15:50 11:24 06:21 POC Glucose 211 H 392 H 267 H 09/29/18 22:13 POC Glucose 326 H Assessment/Plan This patient was seen in conjunction with SACK SEWER MACHINE, Dayana. I have independently interviewed and examined the patient and reviewed pertinent history, examination findings, laboratory and plan of management. I have reviewed the note and agree with the documented findings with the few additional points. In brief, patient is admitted for new diagnosis of diabetes with hyperosmolar hyperglycemic state. A1c 14.4%. Admitting glucose was 682. Glucose is relatively controlled, fluctuates between 250-350. TSH normal potassium is still low 3.3. Patient LFT is elevated, AST 81, AST 84, ratio 1 is to 1. A/G ratio 0.8. Alkaline phosphatase 215. GGT 667. Repeat LFT shows ALT 121, AST 147, alkaline phosphatase 228, worse than yesterday. Right upper quadrant sonogram reported as normal echogenicity liver. Monitor LFT tomorrow morning. Most probably it seems related to hypovolemia secondary to HHS and fluid shift. Expected to get LFT stable or improved tomorrow morning. I have discussed my assessment with SACK SEWER MACHINE, Dayana and orders have been reviewed. Clinical Impression(s) from Imaging Studies Abdomen Ultrasound 09/29/18 11:06 IMPRESSION: Unremarkable right upper quadrant ultrasound without acute findings. Abdomen/Pelvis CT 09/29/18 12:08 IMPRESSION: 1. No enhancing pancreatic mass. 2. Distal pancreatic atrophy or congenital absence. 3. Simple bilateral renal cysts. 4. Bibasilar atelectasis. Electronically Signed: Easton Murphy MD at 15:15 EDT , Service support , Laboratory Results 09/29/18 22:13: POC Glucose 326 H 09/30/18 06:16: Sodium 137, Potassium 3.4 L, Chloride 103, Carbon Dioxide 28.0, Anion Gap 6, BUN 14, Creatinine 0.95, Estim Creat Clear Calc 107.22, Est GFR (MDRD) Af Amer 113, Est GFR (MDRD) Non-Af 94, BUN/Creatinine Ratio 14.7, Glucose 264 H, Calcium 8.3 L, Total Bilirubin 0.60, AST 147 H, ALT 121 H, Alkaline Phosphatase 228 H, Total Protein 5.8 L, Albumin 2.6 L, Globulin 3.2, Albumin/Globulin Ratio 0.8 L 09/30/18 06:16: Miscellaneous Test Pending 09/30/18 06:21: POC Glucose 267 H 09/30/18 11:24: POC Glucose 392 H 09/30/18 15:50: POC Glucose 211 H Code Visit Inpatient E&M: 31395 Subs Hosp L2
[2018-09-30 16:01] LABS: Bedside Glucose 211 mg/dL (70-110)
[2018-09-30 20:06] LABS: HEPATITIS B SURFACE AG Negative (Negative); Hepatitis A AB, Total Negative (Negative); Hepatitis A IgM Antibody Negative (Negative); Hepatitis B Core AB IgM Negative (Negative); Hepatitis B Core Ab Total Negative (Negative); Hepatitis C Ab <0.1 s/co ratio (0.0-0.9)
[2018-09-30] MEDS: Amitriptyline 25 MG Tablet PO (20:45)
[2018-09-30 23:15] LABS: Bedside Glucose 316 mg/dL (70-110)
[2018-10-01] VITALS (10 sets, daily range): BP systolic 131–152; BP diastolic 80–98; PULSE 63–95; RESP 15–20; TEMP 36.6–37.6; O2SAT 96–98
[2018-10-01 03:01] LABS: Bedside Glucose 174 mg/dL (70-110)
[2018-10-01 06:29] LABS: ALB/GLOB Ratio 0.8 RATIO (0.9-2.4); AST(SGOT) 332 U/L (15-37); Alanine Aminotransfer ALT/SGPT 217 U/L (16-61); Albumin, Serum 2.6 g/dL (3.2-5.0); Alkaline Phosphatase 293 U/L (45-117); Anion Gap 8 (5-15); BUN 13 mg/dL (7-18); BUN/Creat Ratio 13.9 RATIO (10-20); Chloride 108 mmol/L (98-107); Creatinine, Serum 0.94 mg/dL (0.70-1.30); EST Glomerular Filtration Rate 96 mL/min (>60); Est Glom Filt Rate - Afr Amer 116 mL/min (>60); Estimated Creatinine Clearance 108.36 ml/min; Globulin 3.1 g/dL (2.2-4.2); Glucose 127 mg/dL (74-106); Potassium 3.5 mmol/L (3.5-5.1); Protein, Total 5.7 g/dL (6.4-8.2); Sodium Level 142 mmol/L (136-145)
[2018-10-01] MEDS: 0.9% Normal Saline 1,000 ML 150 ML IV (06:36)
[2018-10-01 07:05] LABS: Bedside Glucose 131 mg/dL (70-110)
--- NOTE | 2018-10-01 08:44 | NURSING ---
THIS RN TAKING OVER CARE OF THIS PT AT THIS TIME.
[2018-10-01] MEDS: Glucerna Shake 120 ML LIQUID PO (09:01)
[2018-10-01] MEDS: Loratadine 10 MG Tablet PO (09:02)
[2018-10-01] MEDS: Famotidine 20 MG Tablet PO ×2 (09:02→21:29)
[2018-10-01] MEDS: Enoxaparin 40 MG/0.4 ML Syringe SC (09:02)
[2018-10-01] MEDS: Propranolol LA 80 MG Capsule PO ×2 (09:02→21:29)
[2018-10-01] MEDS: RisperiDONE 1 MG Tablet PO (09:03)
[2018-10-01 11:16] LABS: Bedside Glucose 273 mg/dL (70-110)
--- NOTE | 2018-10-01 11:46 | CASEMGMT ---
Social Work Referral: Patient with new diagnosis of diabetes. Informant: Dr. Mclean Met with patient in room. This social service liaison broached topic of new diagnosis of diabetes. Patient reporting to not be excited about new diagnosis but to think that it will all work out. Patient stating that nursing staff has been working with patient on teaching and that the shots are not that bad. Patient currently lives in a group from through [employer]. This social service liaison inquiring if patient would have support for managing diabetes at the care home, patient stating that the staff can assist. Patient is open to this social service liaison contacting patient family/care home to inquire about patient supports within the community with new diagnosis. Patient otherwise functioning independently within the care home and does work during the days. Patient reporting no further concerns. Support given. Telephone call to patient parents, voicemail left. Attempted to contact other contact on chart, Westley Norton, this is the incorrect contact information. Will continue to follow as needed. Salomón Rios MSW, JENELLE
[2018-10-01] MEDS: Insulin Lispro 100 UNIT/ML INSULN.PEN SC ×3 (11:52→21:38)
--- NOTE | 2018-10-01 12:38 | PCM.PN.HOSP ---
Subjective: Patient seen and examined. He has no complaints and feels well. He denies any fever, any chill, any palpitations or dizziness, any chest pain, any diarrhea vomiting. Patient's liver enzymes noted to have trended up some more. He denies any use of [id number] pain medication or herbal medication. Review of systems otherwise negative. Hepatitis serology pending. Vitals/I&O's: Vital Signs Temp Pulse Resp BP Pulse Ox 97.9 F 76 16 141/89 H 98 10/01/18 08:45 10/01/18 08:45 10/01/18 08:45 10/01/18 08:45 10/01/18 08:45 Oxygen Delivery Method Room Air Weight: 158 lb 8.198 oz Body Mass Index (BMI) 21.4 Intake and Output for Last 24 Hours 09/29/18 09/30/18 10/01/18 23:59 23:59 23:59 Intake Total 2299.8 / 2299.8 3070 / 4185 2158 / 2158 Balance 2299.8 / 2299.8 3070 / 4185 2158 / 2158 General: Alert, Oriented x3, Cooperative, No apparent distress HEENT: Atraumatic, PERRLA, EOMI, Normocephalic Oral: Moist Mucosa Neck: Supple, No JVD, Negative Carotid Bruits Lungs: Clear to auscultation, Normal air movement, No rhonchi, No wheeze, No rales Cardiovascular: Regular rate, Regular Rhythm, Normal S1, Normal S2, No murmurs Abdomen: Bowel Sounds Present, Soft, Non Tender, Non-Distended, No Hepato-splenomegaly Extremities: No clubbing, No cyanosis, No edema, Capillary Refill Less than 3 Seconds Skin: No rashes, No breakdown Musculoskeletal: No Tenderness to Palpation of Joints or Extremities Lymphatic: No Cervical, Supraclavicular, or Inguinal Adenopathy Neurological: Cranial nerves II-XII grossly intact, Neuro grossly intact, Motor Exam 5/5 strength throughout Psych/Mental Status: Flat Affect, Alert and oriented to time, place, person, mood and affect Laboratory Results 09/30/18 15:50: POC Glucose 211 H 09/30/18 23:05: POC Glucose 316 H 10/01/18 02:56: POC Glucose 174 H 10/01/18 05:46: Sodium 142, Potassium 3.5, Chloride 108 H, Carbon Dioxide 26.0, Anion Gap 8, BUN 13, Creatinine 0.94, Estim Creat Clear Calc 108.36, Est GFR (MDRD) Af Amer 116, Est GFR (MDRD) Non-Af 96, BUN/Creatinine Ratio 13.9, Glucose 127 H, Calcium 8.0 L, Total Bilirubin 0.70, AST 332 H, ALT 217 H, Alkaline Phosphatase 293 H, Total Protein 5.7 L, Albumin 2.6 L, Globulin 3.1, Albumin/Globulin Ratio 0.8 L 10/01/18 05:46: GGT Pending 10/01/18 06:58: POC Glucose 131 H 10/01/18 11:09: POC Glucose 273 H Diagnostic Data Abdomen Ultrasound 09/29/18 11:06 IMPRESSION: Unremarkable right upper quadrant ultrasound without acute findings. No gallstones. Electronically Signed: Nikki Finney at 20:47 EDT Tel , Service support , Abdomen/Pelvis CT 09/29/18 12:08 IMPRESSION: 1. No enhancing pancreatic mass. 2. Distal pancreatic atrophy or congenital absence. 3. Simple bilateral renal cysts. 4. Bibasilar atelectasis. Electronically Signed: Easton Murphy MD at 15:15 EDT , Service support , Current Medications Amitriptyline HCl (Elavil) 25 mg PO QHS [facility] Last Admin: 09/30/18 20:45 Dose: 25 mg Documented by: Dextrose (D50w Syringe) 0 gm IV X1 PRN; Protocol PRN Reason: HYPOGLYCEMIA Enoxaparin Sodium (Lovenox) 40 mg SC DAILY@1000 [facility] Last Admin: 10/01/18 09:02 Dose: 40 mg Documented by: Famotidine (Pepcid) 20 mg PO BID [facility] Last Admin: 10/01/18 09:02 Dose: 20 mg Documented by: Glucagon () 1 mg IM .X1 PRN PRN Reason: Hypoglycemia Sodium Chloride () 250 mls @ 15 mls/hr IV .[id number] PRN PRN Reason: SALINE FLUSH Insulin Glargine (Lantus ([facility])) 15 units SC BID [facility] Last Admin: 10/01/18 09:03 Dose: 15 units Documented by: Insulin Human Lispro (Humalog Kwikpen ([facility])) 0 unit SC [facility]; Protocol Last Admin: 10/01/18 11:52 Dose: 9 units Documented by: Loratadine (Claritin) 10 mg PO DAILY [facility] Last Admin: 10/01/18 09:02 Dose: 10 mg Documented by: Nicotine Polacrilex (Rugby Nicotine ([facility])) 2 mg PO Q2H PRN PRN PRN Reason: Nicotine withdrawal Nutritional Formula (Lactose Free) (Glucerna Shake) 120 ml PO 4X/DAY [facility] Last Admin: 10/01/18 09:01 Dose: 120 ml Documented by: Propranolol HCl (Inderal La) 80 mg PO BID [facility] Last Admin: 10/01/18 09:02 Dose: 80 mg Documented by: Risperidone (Risperdal) 1 mg PO DAILY [facility] Last Admin: 10/01/18 09:03 Dose: 1 mg Documented by: Rizatriptan Benzoate (Maxalt) 10 mg PO .X1 PRN PRN PRN Reason: HEADACHE Last Admin: 09/29/18 15:43 Dose: 10 mg Documented by: Sodium Chloride () 10 - 40 ml IV UD PRN PRN Reason: SALINE FLUSH Last Admin: 09/30/18 11:16 Dose: 10 ml Documented by: Medical Necessity - Tobacco Use Smoking Status: Current every day smoker Tobacco Use: Cigarettes Assessment/Plan 38-year-old male admitted with a complaint of weight loss, polyuria and polydipsia. 1. Newly diagnosed diabetes was admitted with hyperglycemia blood sugar now getter controlled; On lantus 20IU qhs A1C was 14.4 C peptide and RAFAEL pending CT abdomen was negative continue ISS. accuchecks [facility] unable to start metformin o/a of worsening liver enzymes dietitian on board to dianetic counselor about diabetic diet. 2. Elevated Transaminases liver enzymes have trended up since admission AST/ALT shari is 217/293, and ALP also elevated at 293. GGT is markely elevated at 958 today. total bilirubin remains normal at 0.7 pattern of elevation fits a cholestatic picture; patient strenuously denies alcohol use Medications also reviewed and none of his medications knwon to cause such liver injury. Hep screen: negative for Hep A antibodies, Hep B antigen or antibodies and Hep C antibody PT/INR also pending 3. Hyponatremia:resolved. 4. Hypokalemia: resolved. Potassium is 3.4. Will replace and monitor. 5. WARD: resolved. 6. Asperger's syndrome: On fluoxetine, methylphenidate, amitriptyline and Risperdal. 7. Chronic migraine: on propranolol and rizatriptan prn 8. Nicotine dependence: on nicotine gum DVT prophylaxis: Lovenox Code Visit Inpatient E&M: 97741 Subs Hosp L2
[2018-10-01 12:53] LABS: Hep B Surface Antibodies Non Reactive (.)
[2018-10-01 13:05] LABS: GGTP 958 U/L (15-85)
[2018-10-01 13:28] LABS: Prothrombin Time (Protime)PT. 12.8 SECONDS (11.7-14.9)
[2018-10-01 13:30] LABS: Absolute Lymphocyte Count 2.06 X10^3/ul (0.83-4.51); Basophil# 0.03 X10^3/uL; Basophil% 0.5 % (0-1); Eosinophil# 0.35 X10^3/uL; Eosinophils% 5.9 % (0-5); Hematocrit 36.6 % (40-54); Hemoglobin 13.1 g/dl (13.0-16.5); Lymphocyte # 2.06 X10^3/ul (4.0); Lymphocyte % 34.9 % (19-41); Mean Corp Hgb Conc 35.8 g/gl (32-36); Mean Corpuscular Hgb 29.2 pg (27.0-32.0); Mean Corpuscular Volume 81.7 fL (80-94); Mean Platelet Vol. 10.3 fl (6.2-12.0); Monocyte# 0.42 X10^3/uL; Monocyte% 7.1 % (0-10); Neutrophil # 3.03 X10^3/uL (2.7-7.7); Neutrophil % 51.3 % (47-70); Platelet Count 194 K/mm3 (150-450); RBC Distribution Width CV 12.2 % (11.6-14.6); RBC Distribution Width SD 35.6 fl (35.1-43.9); Red Blood Count 4.48 M/mm3 (4.6-6.2); White Blood Count 5.9 K/mm3 (4.4-11.0)
[2018-10-01 13:31] LABS: POSITIVE COUNT NO; POSITIVE DIFFERENTIAL NO; POSITIVE MORPHOLOGY NO
--- NOTE | 2018-10-01 14:08 | CHAPLAIN ---
Type of Pastoral Visit _x__ Initial Visit ___ Follow-up Visit ___ On-call Visit ___ General Patient Visit ___ Spiritual Assessment ___ Family Conference ___ Bereavement ___ Rapid Response ___ Code Blue ___ Other (describe below) Pastoral Care Referral From _x__ Patient ___ Family ___ Nurse ___ Physician ___ Cook Mess ___ Discharge Door Operator ___ Other (describe below) Sacrament/Intervention _x__ Active listening ___ Anointing ___ Scientologist ___ Bereavement ___ Communion _x__ [place] exploration ___ _x__ Life review _x__ Prayer ___ Reconciliation ___ Sacrament of Sick _x__ Supportive presence ___ Wedding ___ Other (describe below) Pastoral Comments
[2018-10-01 14:50] LABS: C-Peptide 2.5 ng/mL (1.1-4.4)
[2018-10-01] MEDS: Rizatriptan Benzoate 10 MG Tablet PO (15:42)
[2018-10-01 16:26] LABS: Bedside Glucose 191 mg/dL (70-110)
[2018-10-01] MEDS: Acetaminophen 325 MG Tablet 650 MG PO (18:53)
[2018-10-01] MEDS: Amitriptyline 25 MG Tablet PO (21:29)
[2018-10-01 23:35] LABS: Bedside Glucose 224 mg/dL (70-110)
[2018-10-02] VITALS (7 sets, daily range): BP systolic 126–141; BP diastolic 75–94; PULSE 76–103; RESP 16–18; TEMP 38–38.4; O2SAT 95–97
[2018-10-02] MEDS: Insulin Lispro 100 UNIT/ML INSULN.PEN SC ×2 (06:37→13:12)
[2018-10-02 06:55] LABS: Bedside Glucose 196 mg/dL (70-110)
[2018-10-02 08:50] LABS: ALB/GLOB Ratio 0.8 RATIO (0.9-2.4); AST(SGOT) 358 U/L (15-37); Alanine Aminotransfer ALT/SGPT 330 U/L (16-61); Albumin, Serum 2.8 g/dL (3.2-5.0); Alkaline Phosphatase 348 U/L (45-117); Anion Gap 8 (5-15); BUN 13 mg/dL (7-18); BUN/Creat Ratio 10.7 RATIO (10-20); Calcium,Total 8.5 mg/dL (8.5-10.1); Chloride 97 mmol/L (98-107); Creatinine, Serum 1.21 mg/dL (0.70-1.30); EST Glomerular Filtration Rate 71 mL/min (>60); Est Glom Filt Rate - Afr Amer 86 mL/min (>60); Estimated Creatinine Clearance 84.18 ml/min; Globulin 3.7 g/dL (2.2-4.2); Glucose 190 mg/dL (74-106); Protein, Total 6.5 g/dL (6.4-8.2); Sodium Level 132 mmol/L (136-145)
--- NOTE | 2018-10-02 10:20 | MRI_ITS ---
STUDY: MR CHOLANGIOPANCREATOGRAPHY (MRCP) REASON FOR EXAM: Male, 38 years old. Elevated liver enzymes. Diabetes. TECHNIQUE: Standard MRCP technique was utilized. COMPARISON: CT and ultrasound dated 09/29/2018. FINDINGS: This study is limited by patient motion. There are no gallstones identified. There is no intrahepatic or extrahepatic biliary duct dilatation. The common bile duct measures 5 mm. There are no ductal stones identified. The liver is normal in contour and signal intensity. There are no focal hepatic lesions identified. There is atrophy of the distal pancreatic body and pancreatic tail. The spleen and adrenal glands are normal in contour and signal intensity. There are bilateral renal cysts. There is no hydronephrosis. MRI/MRCP Abdomen without Contrast IMPRESSION: Study limited by patient motion. No gallstones or ductal stones identified. No biliary duct dilatation. Atrophy of the pancreatic distal body and tail. Electronically Signed: Tim Jones, at 14:26 EDT Tel , Service support ,
[2018-10-02 10:26] LABS: Bedside Glucose 261 mg/dL (70-110)
[2018-10-02] MEDS: Loratadine 10 MG Tablet PO (10:30)
[2018-10-02] MEDS: Propranolol LA 80 MG Capsule PO (10:31)
[2018-10-02] MEDS: Enoxaparin 40 MG/0.4 ML Syringe SC (10:33)
[2018-10-02] MEDS: Famotidine 20 MG Tablet PO (10:34)
[2018-10-02] MEDS: RisperiDONE 1 MG Tablet PO (10:37)
--- NOTE | 2018-10-02 10:39 | CASEMGMT ---
Social Work Telephone call from patient mother, Danita. This sr. social media & mobile manager inquiring about support for patient with new diagnosis of diabetes in the community. Danita stating to live in [place] and to not be able to assist with this transition. Danita recommending for this sr. social media & mobile manager to contact Westley Norton, the car manager. This sr. social media & mobile manager informing Danita that this sr. social media & mobile manager attempted to contact Westley Norton and it appears that the contact information is incorrect. Danita giving this sr. social media & mobile manager a contact number of [phone] (this sr. social media & mobile manager updated this in [employer]). Danita stating that patient is typically alone from 8a-3p and that the longterm staff could probably assist with breakfast and dinner but lunch would be an issue. Telephone call to castillo Christy requesting a return phone call. Will continue to follow as needed. Salomón ARREDONDO, JENELLE
--- NOTE | 2018-10-02 10:48 | CASEMGMT ---
Social Work Telephone call from Westley, Westley reporting to have assisted with other [facility] members with diabetes and to be able to assist patient with the transition to the community and new life style. Westley aware that patient may also need assistance with grocery shopping. Westley voicing to be able to offered the needed services to patient. Salomón ARREDONDO, JENELLE
[2018-10-02 13:20] LABS: Bedside Glucose 231 mg/dL (70-110)
--- NOTE | 2018-10-02 16:40 | DS.PCM_ITS ---
Discharge Date and Diagnosis Date of Admission: 09/28/18 Date of Discharge: 10/02/18 - Primary Discharge Diagnosis HHS in a newly diagnosed diabetic Elevated transaminases Hospital Course and Treatment Imaging Results: 10/02/18 10:20 MRCP Abdomen without Contrast [MRI] Urgent Operations: None Procedures: None Summary of Care Provided: The patient is a 38 year old M with a past medical history of Asperger's syndrome and lives in a skilled nursing. 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 He went to an urgent care facility on day of admission on account of urinary frequency. Patient stated he had been having urinary frequency and frequent thirst for the past few months as well as significant weight loss. Patient and his family thinks he is lost about 20 pounds since May 2017. Patient states he has been telling the staff in the skilled nursing where he lives about his symptoms but nothing had been done about it. His blood sugar was checked in the urgent care center today and was more than 600. Patient has no history of diabetes and he is adopted and does not know his family history. Parents also could not give any further information about family history. Review of symptoms otherwise negative. On admission in the ED, blood glucose was 682. Vitals were otherwise stable. CBC was unremarkable and BMP was significant for potassium of 3.4 and sodium of 125. Bicarb was 32 and anion gap was 7 and creatinine was 1.4. AST and ALT as well as ALP were also mildly elevated. He was admitted to be managed for HHS in a newly diagnosed diabetic. He was put on insulin drip and blood sugar normalized. A1c was around 14. He was started on insulin Lantus 20 units daily. Blood sugar remained well controlled. However liver enzymes progressively trended up. AST peaked at 358 and ALT peaked at 330. ALP peaked at 348 and GGT was also markedly elevated peaking at 958. Initially bilirubin was normal but then trended up to 1.6. Gallbladder ultrasound done was negative for any liver or gallbladder pathology. Abdominal CT was also negative. He had an MRCP which showed a normal liver and showed no gallstones or ductal stones or biliary duct dilatation. Hepatitis screen was also negative. Patient strenuously denied any alcohol intake and also denied any [id number] pain medication use such as Tylenol. Patient started spiking a fever and in light of [facility] not having a operations team leader, but discussion with general surgery, decision was made to transfer patient to a tertiary facility for GI and hepatology review. He was transferred to [facility] on 10/02/2018. Accepting physician was Dr Perez- hospitalist. Patient seen and examined prior to discharge. He had no complaints and felt well. Review of systems is otherwise negative. Labs and vitals reviewed. All medications reviewed and reconciled. o/e: Vital Signs Height 6 ft Weight: 158 lb 8.198 oz Weight in Pounds 158.5 lbs Pulse Ox 97 Temperature 101.1 F Pulse Rate 103 Respiratory Rate 17 Blood Pressure [BP] 151/101 Blood Pressure 126/75 Blood Pressure Position [BP] Sitting Blood Pressure Position Semi-Fowlers General: Alert, Oriented x3, Cooperative, No apparent distress HEENT: Atraumatic, PERRLA, EOMI, Normocephalic Oral: Moist Mucosa Neck: Supple, No JVD, Negative Carotid Bruits Lungs: Clear to auscultation, Normal air movement, No rhonchi, No wheeze, No rales Cardiovascular: Regular rate, Regular Rhythm, Normal S1, Normal S2, No murmurs Abdomen: Bowel Sounds Present, Soft, Non Tender, Non-Distended, No Hepato- splenomegaly Extremities: No clubbing, No cyanosis, No edema, Capillary Refill Less than 3 Seconds Skin: No rashes, No breakdown Musculoskeletal: No Tenderness to Palpation of Joints or Extremities Lymphatic: No Cervical, Supraclavicular, or Inguinal Adenopathy Neurological: Cranial nerves II-XII grossly intact, Neuro grossly intact, Motor Exam 5/5 strength throughout Psych/Mental Status: Flat Affect, Alert and oriented to time, place, person, mo od and affect Plan as above. - Physical Exam Vital Signs Temp Pulse Resp BP Pulse Ox 101.1 F H 103 H 17 126/75 H 97 10/02/18 15:38 10/02/18 15:38 10/02/18 15:38 10/02/18 15:38 10/02/18 15:38 Oxygen Delivery Method Room Air Weight: 158 lb 8.198 oz Body Mass Index (BMI) 21.4 Intake and Output for Last 24 Hours 09/30/18 10/01/18 10/02/18 23:59 23:59 23:59 Intake Total 3070 / 4185 3438 / 3798 1070 / 1070 Output Total 400 / 400 Balance 3070 / 4185 3038 / 3398 1070 / 1070 Laboratory Tests Past 24 Hrs 10/02/18 08:13 Sodium 132 L Potassium 4.0 Chloride 97 L Carbon Dioxide 27.0 Anion Gap 8 BUN 13 Creatinine 1.21 Estim Creat Clear Calc 84.18 Est GFR (MDRD) Af Amer 86 Est GFR (MDRD) Non-Af 71 BUN/Creatinine Ratio 10.7 Glucose 190 H Calcium 8.5 Total Bilirubin 1.60 H AST 358 H ALT 330 H Alkaline Phosphatase 348 H Total Protein 6.5 Albumin 2.8 L Globulin 3.7 Albumin/Globulin Ratio 0.8 L POC Glucose 10/02/18 10/02/18 10/02/18 13:10 10:22 06:36 POC Glucose 231 H 261 H 196 H 10/01/18 21:33 POC Glucose 224 H Discharge Diet: 1800 Calorie Control Diet Home Medications: Medications to take at Discharge Fluoxetine [Prozac] 60 mg PO DAILY 05/23/13 Methylphenidate HCl [Methylin] 20 mg PO DAILY 05/23/13 Propranolol HCl [Inderal LA (Beta Maureen)] 80 mg PO BID 05/23/13 Ranitidine [Zantac] 150 mg PO BID 05/23/13 Risperidone [Risperidone Odt] 1 mg PO DAILY 05/23/13 Amitriptyline HCl 25 mg PO QHS 09/28/18 Cetirizine HCl [Zyrtec] 10 mg PO DAILY 09/28/18 Rizatriptan Benzoate [Rizatriptan] 10 mg PO X1 PRN 09/28/18 Other Amb Orders: Glucometer Location: None Selected Primary Care Physician: Fitz Gómez MD [Primary Care Provider] - Disposition: Acute care Hospital [facility] Minutes spent on discharge:: 45 Patient Condition:: Stable Medical Necessity - Tobacco Use Smoking Status: Current every day smoker Tobacco Use: Cigarettes Meaningful Use Info Meaningful Use Diagnoses (Choose all that apply): None applicable Code Visit Inpatient E&M: 49268 Disch Hosp
[2018-10-02] MEDS: Ibuprofen 400 MG Tablet PO (16:43)
[2018-10-02 17:05] LABS: Bedside Glucose 228 mg/dL (70-110)
== END 2018-10-02 17:47 | disposition short-term general hospital (02) | DRG 638 ==
LOC: ED 17:55 → PCU 19:18
PROVIDERS: Internal Medicine; Nurse Practitioner Family; Admitting Provider Student in an Organized Health Care Education/Training Program; Emergency Provider Emergency Medicine; Family Provider Family Medicine; PCP Family Medicine; Visit Provider Student in an Organized Health Care Education/Training Program
DX: E11.00 Type 2 diabetes mellitus with hyperosmolarity without nonketotic hyperglycemic-hyperosmolar coma (NKHHC) (principal); E87.1 Hypo-osmolality and hyponatremia; F84.5 Asperger's syndrome; N17.9 Acute kidney failure, unspecified; E44.0 Moderate protein-calorie malnutrition; E87.6 Hypokalemia; G43.909 Migraine, unspecified, not intractable, without status migrainosus; R74.0 Nonspecific elevation of levels of transaminase and lactic acid dehydrogenase [LDH]; Z68.21 Body mass index [BMI] 21.0-21.9, adult
CPT/HCPCS: 36415; 74177; 74181; 76705; 80048; 80053; 80076; 81001; 82009; 82962; 82977; 83036; 83605; 83690; 84132; 84443; 84681; 85025; 85610; 85730; 86704; 86705; 86706; 86708; 86709; 86803; 87340; 93005; 97802; 99285; J7030; Q9967; A4216; J7799

== ENCOUNTER 2018-10-09 18:14 | Inpatient (IN) | payer MEDICARE, MEDICAID, SELFPAY ==
[2018-10-09] VITALS (8 sets, daily range): BP systolic 117–144; BP diastolic 69–90; PULSE 95–107; RESP 15–32; TEMP 36.8–39.6; O2SAT 93–100; BMI 21.4
--- NOTE | 2018-10-09 18:46 | ED.RN ---
PER FAMILY PT WAS NEWLY DX WITH DM RECENTLY THEN TRANFERED TO [facility] FOR JAUNDICE AND ELEVATED LIVER ENZYMES WITH UNKNOWN CAUSE. RETURNING TODAY FOR INCREAED JAUNDICE LETHARGY WEAKNESS. RT KNEE AND LEFT SHOULDER PAIN. FAMILY REPORTS UNKNOWN CAUSEA FOR SX AT THIS TIME.
--- NOTE | 2018-10-09 20:22 | CT_ITS ---
STUDY: CT ABDOMEN AND PELVIS WITH CONTRAST REASON FOR EXAM: Male, 38 years old. Jaundice RADIATION DOSAGE (If Supplied By Facility): DLP = ( 609.03 ) mGycm TECHNIQUE: Transaxial images were obtained from the dome of the diaphragm to the symphysis pubis without oral contrast. 100 ml of Isovue 300 contrast was administered. Sagittal and coronal images were reconstructed. Individualized dose optimization techniques were used for this CT. COMPARISON: CT abdomen and pelvis September 29, 2018 FINDINGS: Bibasilar atelectasis is present. The visualized portions of the heart and pericardium are within normal limits. There are no calcified gallstones present. The liver is within normal limits. There are no suspicious hepatic lesions. The spleen is enlarged. The distal pancreas is absent. The adrenal glands are within normal limits. There are no obstructing renal stones. There is no hydronephrosis. Bilateral renal cysts are present, the largest on the right measuring 2.9 cm. Normal visualized stomach. There is no bowel obstruction or inflammation. The appendix is normal. The aorta is normal in caliber. There is no abdominal or pelvic free air, free fluid, fluid collection or lymphadenopathy. There are no destructive osseous lesions. CT/Abdomen/Pelvis W IV Cont ONLY IMPRESSION: No acute abdominal or pelvic pathology. Splenomegaly. Bilateral renal cysts. Absence of the distal pancreas. Electronically Signed: Flynn Malone, at 21:38 EDT Tel , Service support ,
--- NOTE | 2018-10-09 20:25 | RAD_ITS ---
STUDY: X-RAY CHEST REASON FOR EXAM: Male, 38 years old. Weakness TECHNIQUE: Frontal view of the chest COMPARISON: None. FINDINGS: The lungs are clear. There are no pleural effusions. There is no pneumothorax. The heart is normal in size. The visualized osseous structures are within normal limits. RAD/Chest 1 View (Portable) IMPRESSION: No acute thoracic pathology. Electronically Signed: Flynn Malone, at 21:03 EDT Tel , Service support ,
--- NOTE | 2018-10-09 20:27 | ED.VISSUMM ---
- ER Visit Summary Date of Service: 10/09/18 Chief Complaint: Weakness, jaundice History of Present Illness: The patient is a 38 M presenting with weakness, jaundice. Patient was admitted to the hospital on September 28. He was transferred to [facility] during that admission. Overall he was in the hospital approximately one week per family. He had elevated liver enzymes throughout his stay. He had multiple tests per family with no known diagnosis. He was advised to follow-up with GI in 2 weeks. Per family his symptoms of generalized weakness and fatigue have worsened. His appetite has worsened. He now has jaundice which is a new symptom. He has been losing weight. He has newly diagnosed diabetes, Asperger's. Denies alcohol or drug use. He has had intermittent fevers. Physical Examination: Vitals are stable. Patient is afebrile. Alert no acute distress. HEENT exam scleral icterus. Neck is supple. Lungs are clear and equal bilaterally. Heart is regular rate and rhythm. Abdomen is soft nontender nondistended. Extremities are unremarkable. Skin is warm and dry. Jaundice No focal neurologic deficit. Remainder of exam is unremarkable. Emergency Department Course and Treatment: Patient was given IV fluids, Zofran. CBC shows hemoglobin 10.6, platelet 114. Chemistries show sodium 122, potassium 2.7, glucose 266, BUN 33, creatinine 1.40. Liver enzymes show total bili 4.5, previous 1.6. Direct bili 3.8, previous 0.17. Alk phos 422. ALT 75, previous 358. AST 65, previous 330. Lipase is normal. INR 1.1. Urinalysis unremarkable. Lactic acid is normal. Patient developed a fever in the ED. He is given Motrin. He is given potassium oral replacement. Chest x-ray shows no acute process. CT abdomen pelvis shows no acute abdominal or pelvic pathology. Splenomegaly. Bilateral renal cysts. Absence of the distal pancreas. Family requests [facility] for further evaluation and treatment. Discussed with [facility]. They are currently at high bed capacity. He likely will not get a bed until tomorrow. Discussed with the hospitalist for admission overnight until transfer to [facility]. Disposition: Admission Impression: Jaundice, elevated liver enzymes, febrile illness This note was generated with [employer] dictation software. It may contain incorrect words, spelling, and punctuation that were not noted in review of the chart prior to signing ED Disposition - Plan for ED Patient: Referrals: Fitz Gómez MD [Primary Care Provider] -
[2018-10-09] MEDS: 0.9% Normal Saline 1,000 ML 1000 ML IV (20:53)
[2018-10-09] MEDS: Ondansetron 4 MG/2 ML Vial IV (20:53)
[2018-10-09 20:55] LABS: Absolute Lymphocyte Count 0.63 X10^3/uL (0.83-4.51); Absolute Neutrophil Count 8.9 X10^3/uL (2.0-7.7); Basophil# 0.02 X10^3/uL; Basophil% 0.2 % (0-1); Eosinophil# 0.01 X10^3/uL; Eosinophils% 0.1 % (0-5); Hematocrit 29.4 % (40-54); Hemoglobin 10.6 g/dL (13.0-16.5); Lymphocyte # 0.63 X10^3/ul (4.0); Lymphocyte % 6.1 % (19-41); Mean Corp Hgb Conc 36.1 g/dL (32-36); Mean Corpuscular Hgb 29.5 pg (27.0-32.0); Mean Corpuscular Volume 81.9 fL (80-94); Mean Platelet Vol. 11.3 fl (6.2-12.0); Monocyte# 0.55 X10^3/uL; Monocyte% 5.4 % (0-10); NRBC Flagged by Analyzer 0 % (0-5); Neutrophil # 8.85 X10^3/uL (2.7-7.7); Neutrophil % 86.2 % (47-70); Platelet Count 114 K/mm3 (150-450); RBC Distribution Width CV 12.6 % (11.6-14.6); RBC Distribution Width SD 37.9 fl (35.1-43.9); Red Blood Count 3.59 M/mm3 (4.6-6.2); White Blood Count 10.3 K/mm3 (4.4-11.0)
[2018-10-09 21:04] LABS: International Normalized Ratio 1.1; Prothrombin Time (Protime)PT. 13.8 SECONDS (11.7-14.9)
[2018-10-09 21:24] LABS: AST(SGOT) 75 U/L (15-37); Alanine Aminotransfer ALT/SGPT 65 U/L (16-61); Albumin, Serum 1.9 g/dL (3.2-5.0); Alkaline Phosphatase 422 U/L (45-117); Anion Gap 9 (5-15); BUN 33 mg/dL (7-18); BUN/Creat Ratio 23.6 RATIO (10-20); Calcium,Total 8.1 mg/dL (8.5-10.1); Chloride 84 mmol/L (98-107); EST Glomerular Filtration Rate 60 mL/min (>60); Est Glom Filt Rate - Afr Amer 73 mL/min (>60); Estimated Creatinine Clearance 72.52 ml/min; Globulin 4.4 g/dL (2.2-4.2); Glucose 266 mg/dL (74-106); Lipase 171 U/L (73-393); Potassium 2.7 mmol/L (3.5-5.1); Protein, Total 6.3 g/dL (6.4-8.2); Sodium Level 122 mmol/L (136-145)
--- NOTE | 2018-10-09 21:24 | ED.RN ---
DR COLLINS NOTIFIED OF K+ RESULT
[2018-10-09 21:47] LABS: Mucous, Urine 0 SEEN /hpf (<or=2+); Red Blood Cells-Urine 0 SEEN /hpf (0-5); Squamous Epithelial Cells - UA 0 SEEN /hpf (0-5)
[2018-10-09 21:48] LABS: Color, Urine Yellow (Yellow); Glucose, Dipstick 250 mg/dl (Normal); Ketone-Dipstick Negative (Negative); Leukocyte Esterase-Dipstick 25 /ul (Negative); Nitrite-Dipstick Negative (Negative); Occult Blood-Urine 25 /ul (Negative); Protein-Dipstick 30 mg/dl (Negative); Urine Bilirubin Dipstick Negative (Negative); Urine Clarity Clear (Clear); Urine Urobilinogen 8 mg/dl (Normal)
[2018-10-09 21:49] LABS: Ammonia < 10.0 umol/L (11-32)
[2018-10-09 21:55] LABS: Bacteria 1+ /hpf (None Seen)
[2018-10-09 21:56] LABS: White Blood Cells 0-5 SEEN /hpf (0-5)
[2018-10-09] MEDS: Ibuprofen 600 MG Tablet PO (21:59)
[2018-10-09 22:16] LABS: Lactic Acid 0.8 mmol/L (0.4-2.0)
[2018-10-09 23:12] LABS: Acetaminophen (Tylenol) Level < 2.0 ug/mL (10.0-30.0)
--- NOTE | 2018-10-09 23:55 | PCM.HP.STD ---
Problem List (1) Sepsis Status: Acute (2) Transaminitis Status: Acute (3) Diabetes Status: Chronic (4) Hyperbilirubinemia Status: Acute History of Present Illness Date of Admission: 10/09/18 Chief Complaint: jaundice The patient is a 38 year old M with a significant history of Asperger's syndrome; tobacco abuse; and diagnosed diabetes mellitus presenting with jaundice. Patient [facility] Family was notified that patient was having a decreased appetite; fever and nausea. Also family noticed that patient had jaundiced so he was brought to emergency department. Associated with his symptoms is chills and diaphoresis. Further,he has bilateral leg pain. Importantly, patient was admitted on 09/28/2018 for newly diagnosed diabetes and his liver enzymes and bilirubin was trending up. An MRCP and ultrasound of the liver was unremarkable. Also at that time patient had a fever. Patient was transferred to [facility] to see GI and silk screen operator. Reportedly patient saw GI but patient could not see silk screen operator. On this new presentation Emergency Department doctor discussed the case with hospitalist and shank threader and patient would be admitted at [facility]. Because [facility] did not have a bed immediately patient will be admitted at our hospital ([facility]). Per conversation between emergency department doctor and silk screen operator a careful review of patient's medication should be done to make sure that medication is not causing patient's symptoms. Plan is that the patient may get a liver biopsy at [facility]. Plan is not to send the patient back to [facility]. Past Medical History Past Medical History (Chronic Problems): Chronic Problems Diabetes (Chronic) Allergies clindamycin Adverse Reaction (Verified 10/09/18 18:19) Unknown Home Medications: Ambulatory Orders Medication Instructions Recorded Fluoxetine [Prozac] 20 mg PO DAILY 05/23/13 Methylphenidate HCl [Methylin] 10 mg PO DAILY 05/23/13 Propranolol HCl [Inderal LA (Beta 80 mg PO BID 05/23/13 Maureen)] Ranitidine [Zantac] 150 mg PO BID 05/23/13 Risperidone [Risperidone Odt] 1 mg PO DAILY 05/23/13 Amitriptyline HCl 10 mg PO QHS 09/28/18 Cetirizine HCl [Zyrtec] 10 mg PO DAILY 09/28/18 Rizatriptan Benzoate [Rizatriptan] 10 mg PO X1 PRN 09/28/18 Insulin Aspart [Novolog Flexpen 7 units SUBCUT TIDCM 10/09/18 ([facility])] Insulin Glargine [Lantus SoloStar 18 units SQ QHS 10/09/18 Pen] Surgical History: no surgical history Psychiatric History: - - Asperger's syndrome Lives: Shelter - senior care Smoking Status: Current every day smoker Tobacco Use: Cigarettes Alcohol: None - *Family History Maternal History Items: - - unknown, patient is adopted Paternal History Items: Unknown - Patient is adopted. Review of Systems Constitutional: Reports: Anorexia, Chills, Fever. Denies: Weight Change HEENT: Denies: Head Aches, Sinus Congestion, Sinus Drainage Cardiovascular: Denies: Chest Pain, Palpitations Respiratory: Denies: Cough, Shortness of breath at rest, Sputum production Gastrointestinal: Denies: Abdominal Pain, Nausea, Vomiting Genitourinary: Denies: Dysuria Musculoskeletal: Reports: Leg Pain. Denies: Joint Pain, Joint Tenderness Skin: Reports: Jaundice. Denies: Rash, Wounds Neurological: Denies: Numbness, Tingling, Focal weakness Psychiatric: Denies: Anxiety, Depression, Homicidal Ideations, Suicidal Ideations Hematologic/ Lymphatic: Denies: Easy Bruising, Easy Bleeding VTE Information - Inpt Only VTE Present on Admission: No VTE Mechan Device Prophylaxis: None VTE Pharm Prophylaxis ordered?: No Reason prophylaxis not ordered:: Treatment Not Indicated - Thrombocytopenia. Can not rule out DVT at this time so SCD was not started. Patient Problems: Active and Suspected Problems Hyperbilirubinemia (Acute) - Physical Exam General: Alert, Oriented x3, Cooperative, - - Patient is diaphoretic HEENT: Atraumatic, PERRLA, EOMI, Normocephalic, - - Scleral icterus Neck: Supple, No JVD, Negative Carotid Bruits Lungs: Clear to auscultation, Normal air movement, Tachypneic Cardiovascular: No murmurs, Tachycardic Abdomen: Bowel Sounds Present, Soft, Non Tender Extremities: Capillary Refill Less than 3 Seconds, Edema - Bilateral ankles Skin: - - Jaundice Musculoskeletal: No Tenderness to Palpation of Joints or Extremities Neurological: Cranial nerves II-XII grossly intact Psych/Mental Status: Normal Affect, Appropriate Vital Signs Temp Pulse Resp BP Pulse Ox 99.8 F H 95 28 H 138/80 H 94 10/09/18 23:33 10/09/18 23:33 10/09/18 23:33 10/09/18 23:33 10/09/18 23:33 Oxygen Flow Rate (L/min) 2 Oxygen Delivery Method Nasal Cannula Weight: 71.668 kg Body Mass Index (BMI) 21.4 Laboratory Tests Past 24 Hrs 10/09/18 10/09/18 10/09/18 20:40 20:40 20:40 WBC 10.3 RBC 3.59 L Hgb 10.6 L Hct 29.4 L MCV 81.9 MCH 29.5 MCHC 36.1 H RDW Std Deviation 37.9 RDW Coeff of Fely 12.6 Plt Count 114 L MPV 11.3 Immature Gran % (Auto) 2.000 H Neut % (Auto) 86.2 H Lymph % (Auto) 6.1 L [place] % (Auto) 5.4 Eos % (Auto) 0.1 Baso % (Auto) 0.2 Absolute Neuts (auto) 8.9 H Absolute Lymphs (auto) 0.63 L Absolute Nucleated RBC 0.00 Nucleated RBC % 0 PT 13.8 INR 1.1 Sodium 122 L Potassium 2.7 L* Chloride 84 L Carbon Dioxide 29.0 Anion Gap 9 BUN 33 H Creatinine 1.40 H Estim Creat Clear Calc 72.52 Est GFR (MDRD) Af Amer 73 Est GFR (MDRD) Non-Af 60 BUN/Creatinine Ratio 23.6 H Glucose 266 H Lactic Acid Calcium 8.1 L Total Bilirubin 4.50 H Direct Bilirubin 3.80 H AST 75 H ALT 65 H Alkaline Phosphatase 422 H Ammonia Total Protein 6.3 L Albumin 1.9 L Globulin 4.4 H Lipase 171 Urine Color Urine Clarity Urine pH Ur Specific [place] Urine Protein Urine Glucose (UA) Urine Ketones Urine Occult Blood Urine Nitrite Urine Bilirubin Urine Urobilinogen Ur Leukocyte Esterase Urine RBC Urine WBC Ur Squamous Epith Cells Urine Bacteria Urine Mucus Acetaminophen 10/09/18 10/09/18 10/09/18 20:40 21:37 21:44 WBC RBC Hgb Hct MCV MCH MCHC RDW Std Deviation RDW Coeff of Fely Plt Count MPV Immature Gran % (Auto) Neut % (Auto) Lymph % (Auto) [place] % (Auto) Eos % (Auto) Baso % (Auto) Absolute Neuts (auto) Absolute Lymphs (auto) Absolute Nucleated RBC Nucleated RBC % PT INR Sodium Potassium Chloride Carbon Dioxide Anion Gap BUN Creatinine Estim Creat Clear Calc Est GFR (MDRD) Af Amer Est GFR (MDRD) Non-Af BUN/Creatinine Ratio Glucose Lactic Acid 0.8 Calcium Total Bilirubin Direct Bilirubin AST ALT Alkaline Phosphatase Ammonia < 10.0 L Total Protein Albumin Globulin Lipase Urine Color Yellow Urine Clarity Clear Urine pH 6.0 Ur Specific [place] 1.010 Urine Protein 30 H Urine Glucose (UA) 250 H Urine Ketones Negative Urine Occult Blood 25 H Urine Nitrite Negative Urine Bilirubin Negative Urine Urobilinogen 8 H Ur Leukocyte Esterase 25 H Urine RBC 0 SEEN Urine WBC 0-5 SEEN Ur Squamous Epith Cells 0 SEEN Urine Bacteria 1+ Urine Mucus 0 SEEN Acetaminophen 10/09/18 22:27 WBC RBC Hgb Hct MCV MCH MCHC RDW Std Deviation RDW Coeff of Fely Plt Count MPV Immature Gran % (Auto) Neut % (Auto) Lymph % (Auto) [place] % (Auto) Eos % (Auto) Baso % (Auto) Absolute Neuts (auto) Absolute Lymphs (auto) Absolute Nucleated RBC Nucleated RBC % PT INR Sodium Potassium Chloride Carbon Dioxide Anion Gap BUN Creatinine Estim Creat Clear Calc Est GFR (MDRD) Af Amer Est GFR (MDRD) Non-Af BUN/Creatinine Ratio Glucose Lactic Acid Calcium Total Bilirubin Direct Bilirubin AST ALT Alkaline Phosphatase Ammonia Total Protein Albumin Globulin Lipase Urine Color Urine Clarity Urine pH Ur Specific [place] Urine Protein Urine Glucose (UA) Urine Ketones Urine Occult Blood Urine Nitrite Urine Bilirubin Urine Urobilinogen Ur Leukocyte Esterase Urine RBC Urine WBC Ur Squamous Epith Cells Urine Bacteria Urine Mucus Acetaminophen < 2.0 L Assessment/Plan All Active Problems Sepsis (Acute) Transaminitis (Acute) Hyperbilirubinemia (Acute) The patient is a 38 year old M with a significant history of Asperger's syndrome; tobacco abuse; newly diagnosed diabetes mellitus on admission on 09/28/2018 presenting with jaundice; elevated liver enzymes that is actually trending down but with increasing bilirubin level; chills fever; tachycardia, tachypnea and diaphoresis without a clear etiology of his symptoms. Probable Sepsis Patient with T-max of 102.4 for which he received ibuprofen. Patient with tachycardia with highest heart rate 102. Patient with tachypnea with highest respiratory rate of 28. Importantly abdominal ultrasound on 09/29/2018 was unremarkable. Also MRCP on 10/02/2018 was unremarkable however the study was limited by patient motion. The patient has no abdominal pain to clearly pinpoint cholangitis. No definite clear cause of infection. His urinalysis was not impressive for an infection. However because of his fever we will start patient on antibiotics for presumed biliary source. Because of thrombocytopenia which are away from Zosyn. Will start patient on Merrem. His lactic acid was unremarkable and blood cultures x2 was ordered at the emergency department. Patient to be transferred to [facility] soon as there is a bed. Trend liver enzymes. Other causes of his fever could be due to thromboembolism. Emergency department doctor originally ordered a CTPA but canceled it since the patient had already received contrast while at the emergency department. A duplex of his lower extremities were ordered as patient also complained of bilateral ankle pain and he has bilateral leg swelling. Anticoagulation was started since patient also has thrombocytopenia. Consider CTPA or VQ scan as necessary if patient decompensate. Transaminitis On admission his AST was 75 (normal 15 to 37) Review of old records: His AST about a week ago was 358; and 332. Review of old records: His ALT on admission was 65. His ALT about a week ago was 330; and 217. His alkaline phosphatase on presentation was 422. Review of old records: Alkaline phosphatase about a week ago was 348 and 293. Notably his albumin is low. On admission it was 1.9. Review of old records: His albumin about a week ago was 2.8 and 2.6. His INR was 1.1 Clear cause is unknown. Management as above and plan for further studies at [facility] with probable liver biopsy. Hyperbilirubinemia His total bilirubin on presentation was 4.50. Review of old records showed that his total bilirubin about a week ago was 1.60 and 0.7. His direct bilirubin on presentation was 3.80. Review of old records shows that his bilirubin 11 days ago was direct bilirubin 0.17. Antibiotics as above while we wait for patient to be transferred to [facility]. Hyponatremia On presentation his sodium was 122. His glucose was 266. Corrected sodium is 125. Received normal saline bolus in the emergency department. We will continue patient's on gentle hydration with normal saline and potassium. CMP ordered in a.m. Hypokalemia On presentation his potassium was 2.7. Received potassium in the emergency department We will put on potassium supplementation. Admit to MedSurg telemetry. CMP in a.m. Check magnesium level. Get urinary potassium level. Hypomagnesemia His magnesium returned as 1.0. Magnesium 4 g IV x1. Abnormal urinalysis Patient's denies any urinary symptoms. In any case patient has been started on Merrem for a probable infection in the left system. Pancytopenia: On presentation his hemoglobin was 10.6. Review of old records shows that his hemoglobin is around 13. On presentation his platelets was 114. Review of old records shows that his platelet about a week ago was 194. Pancytopenia may be due to liver disease. Tobacco abuse Counselled. Asperger's syndrome: Continue fluoxetine, methylphenidate, amitriptyline and Risperdal. DVT Prophylaxis Not started because of thrombocytopenia. SCD not started because DVT has not being ruled out. Code Visit Inpatient E&M: 78492 Init Hosp L3
[2018-10-10] VITALS (26 sets, daily range): BP systolic 83–122; BP diastolic 57–74; PULSE 75–109; RESP 12–55; TEMP 36.4–36.8; O2SAT 86–100; BMI 27.5
[2018-10-10 00:40] LABS: Amphetamine Urine VISTA NEGATIVE (<1000 ng/mL); Barbiturate Urine VISTA NEGATIVE (< 200 ng/mL); Benzodiazepine Urine VISTA NEGATIVE (< 200 ng/mL); Cocaine Urine VISTA NEGATIVE (< 300 ng/mL); Ecstacy Urine VISTA NEGATIVE (< 500 ng/mL); Methadone Urine VISTA NEGATIVE (< 300 ng/mL); PCP Urine VISTA NEGATIVE (< 25 ng/mL); THC Urine VISTA NEGATIVE (< 50 ng/mL); Vista UDS pH Range 6
--- NOTE | 2018-10-10 01:31 | VDLE_ITS ---
Reason For Study: Pain RIGHT LEFT GSV is normal. GSV is normal. CFV is compressible, spontaneous, phasic, CFV is compressible, spontaneous, phasic, competent and demonstrates normal competent, and demonstrates normal augmentation. augmentation. FV is compressible, spontaneous, phasic, FV is compressible, spontaneous, phasic, competent and demonstrates normal competent and demonstrates normal augmentation. augmentation. POP V is compressible, spontaneous, phasic, POP V is compressible, spontaneous, phasic, competent and demonstrates normal competent and demonstrates normal augmentation. augmentation. T/P Trunk is compressible. T/P Trunk is compressible. PTV is compressible. PTV is compressible. RT PerV is compressible. LT PerV is compressible. Procedure Exam performed portable in patient room. A preliminary report was called and/or faxed to [id number]. Interpretation Summary No evidence for acute deep venous thrombosis bilateral lower extremities with patent and compressible bilateral great saphenous veins. Ordering Physician: Zack Fontanez Referring Physician: MD Dalia Fitz Performed By: Cassia Loera RVT
[2018-10-10 02:39] LABS: Absolute Lymphocyte Count 0.61 X10^3/uL (0.83-4.51); Basophil# 0.02 X10^3/uL; Basophil% 0.2 % (0-1); Eosinophil# 0.03 X10^3/uL; Eosinophils% 0.3 % (0-5); Hematocrit 27.1 % (40-54); Hemoglobin 9.5 g/dL (13.0-16.5); Lymphocyte # 0.61 X10^3/ul (4.0); Lymphocyte % 5.7 % (19-41); Mean Corp Hgb Conc 35.1 g/dL (32-36); Mean Corpuscular Hgb 28.8 pg (27.0-32.0); Mean Corpuscular Volume 82.1 fL (80-94); Mean Platelet Vol. 11.2 fl (6.2-12.0); Monocyte# 0.72 X10^3/uL; Monocyte% 6.7 % (0-10); NRBC Flagged by Analyzer 0 % (0-5); Neutrophil # 9.02 X10^3/uL (2.7-7.7); Neutrophil % 83.8 % (47-70); POSITIVE MORPHOLOGY YES; Platelet Count 104 K/mm3 (150-450); RBC Distribution Width CV 12.7 % (11.6-14.6); RBC Distribution Width SD 38.6 fl (35.1-43.9); White Blood Count 10.8 K/mm3 (4.4-11.0)
[2018-10-10 02:51] LABS: Differential Indicated SCAN CRITERIA MET
[2018-10-10 03:06] LABS: ALB/GLOB Ratio 0.5 RATIO (0.9-2.4); AST(SGOT) 76 U/L (15-37); Alanine Aminotransfer ALT/SGPT 61 U/L (16-61); Albumin, Serum 1.7 g/dL (3.2-5.0); Alkaline Phosphatase 381 U/L (45-117); Anion Gap 9 (5-15); BUN 31 mg/dL (7-18); BUN/Creat Ratio 22.6 RATIO (10-20); Calcium,Total 7.4 mg/dL (8.5-10.1); Chloride 88 mmol/L (98-107); Creatinine, Serum 1.37 mg/dL (0.70-1.30); EST Glomerular Filtration Rate 62 mL/min (>60); Est Glom Filt Rate - Afr Amer 75 mL/min (>60); Estimated Creatinine Clearance 65.97 ml/min; Globulin 3.3 g/dL (2.2-4.2); Glucose 263 mg/dL (74-106); Potassium 2.8 mmol/L (3.5-5.1); Sodium Level 125 mmol/L (136-145)
[2018-10-10 03:11] LABS: Bedside Glucose 271 mg/dL (70-110)
[2018-10-10] MEDS: Magnesium Sulfate 4gm/100mL 4 GM/100 ML IV.SOLN. IV (05:42)
[2018-10-10] MEDS: 0.9% NaCl Peripheral Flush Adult/Peds IV (05:42)
[2018-10-10 07:55] LABS: Bedside Glucose 259 mg/dL (70-110)
[2018-10-10] MEDS: Insulin Lispro 100 UNIT/ML INSULN.PEN SC ×3 (07:58→16:53)
[2018-10-10] MEDS: Insulin Lispro 100 UNIT/ML INSULN.PEN 7 UNIT SC ×3 (07:58→16:52)
[2018-10-10 08:28] LABS: Anion Gap 7 (5-15); BUN 34 mg/dL (7-18); BUN/Creat Ratio 26.4 RATIO (10-20); Calcium,Total 7.8 mg/dL (8.5-10.1); Chloride 94 mmol/L (98-107); Creatinine, Serum 1.29 mg/dL (0.70-1.30); EST Glomerular Filtration Rate 66 mL/min (>60); Est Glom Filt Rate - Afr Amer 80 mL/min (>60); Estimated Creatinine Clearance 70.06 ml/min; Glucose 262 mg/dL (74-106); Sodium Level 128 mmol/L (136-145)
[2018-10-10] MEDS: Famotidine 20 MG Tablet PO (08:55)
[2018-10-10] MEDS: FLUoxetine 20 MG Capsule 60 MG PO (08:55)
[2018-10-10] MEDS: Propranolol 40 MG Tablet 80 MG PO (08:55)
[2018-10-10] MEDS: RisperiDONE 1 MG Tablet PO (08:56)
[2018-10-10] MEDS: Loratadine 10 MG Tablet PO (08:56)
[2018-10-10] MEDS: Glucerna Shake 120 ML LIQUID PO ×3 (09:04→16:55)
[2018-10-10] MEDS: Methylphenidate HCl 5 MG Tablet 10 MG PO ×2 (09:05→16:59)
--- NOTE | 2018-10-10 09:08 | NURSING ---
This RN talked to pt's mother on the phone, informed her still waiting on a bed at [facility], electrolytes being replaced and venous duplex being done to r/o blood clots to the leg and will call her as soon as we hear about a bed opening. The pt's mother, Danita denies further questions at this time.
[2018-10-10 09:39] LABS: Internal QC Validated? YES +Cl - CLEAR BKGD
[2018-10-10 09:41] LABS: Monotest Negative (Negative)
--- NOTE | 2018-10-10 10:58 | ECHOD_ITS ---
Reason For Study: DYSPNEA Procedure This was a 2D Doppler, Color Flow transthoracic echocardiogram. Exam performed portable in patient room. Left Ventricle Normal LV size. Left ventricular systolic function is normal. The estimated ejection fraction is 60 %. No regional wall motion abnormalities noted. Right Ventricle Normal RV size. Normal systolic function. Atria Normal left atrium. Normal right atrium. Mitral Valve Normal mitral valve. Tricuspid Valve Normal tricuspid valve. Vegetation(s)/mobile mass of the anterior leaflet of the tricuspid valve. A mobile mass measuring 1.2cm and 2.8cm in one dimension and 1.3cm and 3.1cm consistent with a vegetation. Mild tricuspid valve insufficiency. Aortic Valve Normal aortic valve. Trisinus/trileaflet aortic valve. Pulmonic Valve Normal pulmonic valve. Great Vessels Normal aortic root. The pulmonary artery is normal size. Normal inferior vena cava. Pericardium/Pleural No pericardial effusion. MMode/2D Measurements & Calculations LVIDd: 4.5 cm IVSd: 1.0 cm Ao root diam: 2.7 cm LVIDs: 3.2 cm LVPWd: 1.0 cm RVDd: 3.3 cm FS: 29.4 % LAV(MOD-bp): 40.4 ml LA A4 area: 16.5 cm2 LA dimension(2D): 3.2 cm LAV(MOD-bp) Indexed: 21.6 ml/m2 LAV(MOD-sp2): 39.8 ml LAV(MOD-sp4): 40.0 ml RA A4 area: 13.8 cm2 Time Measurements MV dec time: 0.21 sec Doppler Measurements & Calculations MV E max gustavo: 59.1 cm/sec Lat Peak E' Gustavo: 10.5 cm/sec Med Peak E' Gustavo: 11.6 cm/sec MV A max gustavo: 47.8 cm/sec E/E' lat: 5.6 E/E' med: 5.1 MV E/A: 1.2 Ao V2 max: 114.0 cm/sec LV V1 max: 71.6 cm/sec PA V2 max: 68.2 cm/sec Ao max P.2 mmHg LV V1 max P.1 mmHg TR max gustavo: 216.3 cm/sec TR max P.7 mmHg Interpretation Summary A mobile mass measuring 1.2cm and 2.8cm in one dimension and 1.3cm and 3.1cm consistent with a vegetation Normal LV size. Left ventricular systolic function is normal. The estimated ejection fraction is 60 %. No regional wall motion abnormalities noted. Vegetation(s)/mobile mass of the anterior leaflet of the tricuspid valve. Ordering Physician: Amy Thorne Referring Physician: CAYLA DIALLO Performed By: Anya Rodriguez, ROGER, RVT
--- NOTE | 2018-10-10 11:11 | PCM.RX.CS ---
Consult Pharmacy has been consulted to manage selected antiobiotic: Vancomycin Type of Consult: New start Suspected Infection: Sepsis Prior Doses of Antibiotics Received/Current Regimen: ZERO Labs: Sodium 128 mmol/L (136-145) L 10/10/18 08:02 Potassium 3.0 mmol/L (3.5-5.1) L 10/10/18 08:02 Chloride 94 mmol/L (98-107) L 10/10/18 08:02 Carbon Dioxide 27.0 mmol/L (21.0-32.0) 10/10/18 08:02 7 (5-15) 10/10/18 08:02 BUN 34 mg/dL (7-18) H 10/10/18 08:02 1.29 mg/dL (0.70-1.30) 10/10/18 08:02 Est GFR (MDRD) Af Amer 80 mL/min (>60) 10/10/18 08:02 Est GFR (MDRD) Non-Af 66 mL/min (>60) 10/10/18 08:02 26.4 RATIO (10-20) H 10/10/18 08:02 Glucose 262 mg/dL (74-106) H 10/10/18 08:02 TROUGH ORDERED FOR 2300 ON 10/11/18 PRIOR TO 4TH DOSE Microbiology: Microbiology 10/10/18 02:18 Blood Culture (Wb) - Right Hand Blood Culture - Preliminary 10/10/18 02:26 Blood Culture (Wb) - Left Hand Blood Culture - Preliminary Weight used for dosin.3 kg Estimated Creatinine Clearance: 66 Goal Trough: 15-20 mcg/mL - VANCOMYCIN LOADING DOSE OF 1250MG THEN 1000MG Q12H. TROUGH LEVEL ORDERED PRIOR TO 4TH DOSE = 2300 ON 10/11/18 Pharmacy Plan for Drug Dosing: Pharmacy Service will continue to monitor and adjust dosing as required.
[2018-10-10 11:16] LABS: Bedside Glucose 203 mg/dL (70-110)
[2018-10-10 11:17] LABS: Magnesium 1.7 mg/dL (1.6-2.6)
--- NOTE | 2018-10-10 13:35 | PCM.PROGNOTE ---
Patient Problems: Active and Suspected Problems Hyperbilirubinemia (Acute) Subjective: Denies sick contacts. Has cough, sore throat, no SOB. + fever. Denies rash/wounds. No N/V/D. - Physical Exam General: Alert, Oriented x3, Cooperative HEENT: Atraumatic, PERRLA, EOMI, Normocephalic Neck: Supple, No JVD, Negative Carotid Bruits Lungs: Clear to auscultation, Normal air movement Cardiovascular: Regular rate, No murmurs Abdomen: Bowel Sounds Present, Soft, Non Tender Extremities: No edema, Capillary Refill Less than 3 Seconds Skin: No rashes, No breakdown Musculoskeletal: No Tenderness to Palpation of Joints or Extremities Neurological: Cranial nerves II-XII grossly intact Psych/Mental Status: Normal Affect, Appropriate, Alert and oriented to time, place, person, mood and affect Vital Signs Temp Pulse Resp BP Pulse Ox 97.5 F L 92 18 101/60 98 10/10/18 08:52 10/10/18 11:33 10/10/18 08:52 10/10/18 08:52 10/10/18 08:52 Oxygen Flow Rate (L/min) 2 Oxygen Delivery Method Room Air Weight: 170 lb 6.677 oz Body Mass Index (BMI) 27.5 Intake and Output for Last 24 Hours 10/08/18 10/09/18 10/10/18 23:59 23:59 23:59 Intake Total 941 / 941 Output Total 450 / 450 Balance 491 / 491 Microbiology Past 72 Hours 10/10/18 02:26 Blood Culture - Preliminary Blood Culture (Wb) - Left Hand 10/10/18 02:18 Blood Culture - Preliminary Blood Culture (Wb) - Right Hand Laboratory Tests Past 24 Hrs 10/09/18 10/09/18 10/09/18 20:40 20:40 20:40 WBC 10.3 RBC 3.59 L Hgb 10.6 L Hct 29.4 L MCV 81.9 MCH 29.5 MCHC 36.1 H RDW Std Deviation 37.9 RDW Coeff of Fely 12.6 Plt Count 114 L MPV 11.3 Immature Gran % (Auto) 2.000 H Neut % (Auto) 86.2 H Lymph % (Auto) 6.1 L Craig % (Auto) 5.4 Eos % (Auto) 0.1 Baso % (Auto) 0.2 Absolute Neuts (auto) 8.9 H Absolute Lymphs (auto) 0.63 L Absolute Nucleated RBC 0.00 Nucleated RBC % 0 PT 13.8 INR 1.1 Sodium 122 L Potassium 2.7 L* Chloride 84 L Carbon Dioxide 29.0 Anion Gap 9 BUN 33 H Creatinine 1.40 H Estim Creat Clear Calc 72.52 Est GFR (MDRD) Af Amer 73 Est GFR (MDRD) Non-Af 60 BUN/Creatinine Ratio 23.6 H Glucose 266 H Lactic Acid Calcium 8.1 L Magnesium Total Bilirubin 4.50 H Direct Bilirubin 3.80 H AST 75 H ALT 65 H Alkaline Phosphatase 422 H Ammonia Total Protein 6.3 L Albumin 1.9 L Globulin 4.4 H Albumin/Globulin Ratio Lipase 171 Urine Color Urine Clarity Urine pH Ur Specific [employer] Urine Protein Urine Glucose (UA) Urine Ketones Urine Occult Blood Urine Nitrite Urine Bilirubin Urine Urobilinogen Ur Leukocyte Esterase Urine RBC Urine WBC Ur Squamous Epith Cells Urine Bacteria Urine Mucus Urine Potassium Urine Opiates Screen Urine Methadone Screen Acetaminophen Ur Barbiturates Screen Ur Phencyclidine Scrn Ur Amphetamines Screen U Methamphetamin-MDMA U Benzodiazepines Scrn Urine Cocaine Screen U Cannabinoids Screen Ur Drug Screen Comment Monoscreen 10/09/18 10/09/18 10/09/18 20:40 20:40 21:37 WBC RBC Hgb Hct MCV MCH MCHC RDW Std Deviation RDW Coeff of Fely Plt Count MPV Immature Gran % (Auto) Neut % (Auto) Lymph % (Auto) Craig % (Auto) Eos % (Auto) Baso % (Auto) Absolute Neuts (auto) Absolute Lymphs (auto) Absolute Nucleated RBC Nucleated RBC % PT INR Sodium Potassium Chloride Carbon Dioxide Anion Gap BUN Creatinine Estim Creat Clear Calc Est GFR (MDRD) Af Amer Est GFR (MDRD) Non-Af BUN/Creatinine Ratio Glucose Lactic Acid 0.8 Calcium Magnesium 1.0 L Total Bilirubin Direct Bilirubin AST ALT Alkaline Phosphatase Ammonia < 10.0 L Total Protein Albumin Globulin Albumin/Globulin Ratio Lipase Urine Color Urine Clarity Urine pH Ur Specific [employer] Urine Protein Urine Glucose (UA) Urine Ketones Urine Occult Blood Urine Nitrite Urine Bilirubin Urine Urobilinogen Ur Leukocyte Esterase Urine RBC Urine WBC Ur Squamous Epith Cells Urine Bacteria Urine Mucus Urine Potassium Urine Opiates Screen Urine Methadone Screen Acetaminophen Ur Barbiturates Screen Ur Phencyclidine Scrn Ur Amphetamines Screen U Methamphetamin-MDMA U Benzodiazepines Scrn Urine Cocaine Screen U Cannabinoids Screen Ur Drug Screen Comment Monoscreen 10/09/18 10/09/18 10/09/18 21:44 21:44 21:44 WBC RBC Hgb Hct MCV MCH MCHC RDW Std Deviation RDW Coeff of Fely Plt Count MPV Immature Gran % (Auto) Neut % (Auto) Lymph % (Auto) Craig % (Auto) Eos % (Auto) Baso % (Auto) Absolute Neuts (auto) Absolute Lymphs (auto) Absolute Nucleated RBC Nucleated RBC % PT INR Sodium Potassium Chloride Carbon Dioxide Anion Gap BUN Creatinine Estim Creat Clear Calc Est GFR (MDRD) Af Amer Est GFR (MDRD) Non-Af BUN/Creatinine Ratio Glucose Lactic Acid Calcium Magnesium Total Bilirubin Direct Bilirubin AST ALT Alkaline Phosphatase Ammonia Total Protein Albumin Globulin Albumin/Globulin Ratio Lipase Urine Color Yellow Urine Clarity Clear Urine pH 6.0 Ur Specific [employer] 1.010 Urine Protein 30 H Urine Glucose (UA) 250 H Urine Ketones Negative Urine Occult Blood 25 H Urine Nitrite Negative Urine Bilirubin Negative Urine Urobilinogen 8 H Ur Leukocyte Esterase 25 H Urine RBC 0 SEEN Urine WBC 0-5 SEEN Ur Squamous Epith Cells 0 SEEN Urine Bacteria 1+ Urine Mucus 0 SEEN Urine Potassium 13.0 Urine Opiates Screen NEGATIVE Urine Methadone Screen NEGATIVE Acetaminophen Ur Barbiturates Screen NEGATIVE Ur Phencyclidine Scrn NEGATIVE Ur Amphetamines Screen NEGATIVE U Methamphetamin-MDMA NEGATIVE U Benzodiazepines Scrn NEGATIVE Urine Cocaine Screen NEGATIVE U Cannabinoids Screen NEGATIVE Ur Drug Screen Comment Monoscreen 10/09/18 10/09/18 10/10/18 22:27 22:27 02:18 WBC 10.8 RBC 3.30 L Hgb 9.5 L Hct 27.1 L MCV 82.1 MCH 28.8 MCHC 35.1 RDW Std Deviation 38.6 RDW Coeff of Fely 12.7 Plt Count 104 L MPV 11.2 Immature Gran % (Auto) 3.300 H Neut % (Auto) 83.8 H Lymph % (Auto) 5.7 L Craig % (Auto) 6.7 Eos % (Auto) 0.3 Baso % (Auto) 0.2 Absolute Neuts (auto) 9.0 H Absolute Lymphs (auto) 0.61 L Absolute Nucleated RBC 0.00 Nucleated RBC % 0 PT INR Sodium Potassium Chloride Carbon Dioxide Anion Gap BUN Creatinine Estim Creat Clear Calc Est GFR (MDRD) Af Amer Est GFR (MDRD) Non-Af BUN/Creatinine Ratio Glucose Lactic Acid Calcium Magnesium Total Bilirubin Direct Bilirubin AST ALT Alkaline Phosphatase Ammonia Total Protein Albumin Globulin Albumin/Globulin Ratio Lipase Urine Color Urine Clarity Urine pH Ur Specific [employer] Urine Protein Urine Glucose (UA) Urine Ketones Urine Occult Blood Urine Nitrite Urine Bilirubin Urine Urobilinogen Ur Leukocyte Esterase Urine RBC Urine WBC Ur Squamous Epith Cells Urine Bacteria Urine Mucus Urine Potassium Urine Opiates Screen Urine Methadone Screen Acetaminophen < 2.0 L Ur Barbiturates Screen Ur Phencyclidine Scrn Ur Amphetamines Screen U Methamphetamin-MDMA U Benzodiazepines Scrn Urine Cocaine Screen U Cannabinoids Screen Ur Drug Screen Comment Monoscreen Negative 10/10/18 10/10/18 10/10/18 02:18 08:02 08:02 WBC RBC Hgb Hct MCV MCH MCHC RDW Std Deviation RDW Coeff of Fely Plt Count MPV Immature Gran % (Auto) Neut % (Auto) Lymph % (Auto) Craig % (Auto) Eos % (Auto) Baso % (Auto) Absolute Neuts (auto) Absolute Lymphs (auto) Absolute Nucleated RBC Nucleated RBC % PT INR Sodium 125 L 128 L Potassium 2.8 L 3.0 L Chloride 88 L 94 L Carbon Dioxide 28.0 27.0 Anion Gap 9 7 BUN 31 H 34 H Creatinine 1.37 H 1.29 Estim Creat Clear Calc 65.97 70.06 Est GFR (MDRD) Af Amer 75 80 Est GFR (MDRD) Non-Af 62 66 BUN/Creatinine Ratio 22.6 H 26.4 H Glucose 263 H 262 H Lactic Acid Calcium 7.4 L 7.8 L Magnesium 1.7 Total Bilirubin 4.80 H Direct Bilirubin AST 76 H ALT 61 Alkaline Phosphatase 381 H Ammonia Total Protein 5.0 L Albumin 1.7 L Globulin 3.3 Albumin/Globulin Ratio 0.5 L Lipase Urine Color Urine Clarity Urine pH Ur Specific [employer] Urine Protein Urine Glucose (UA) Urine Ketones Urine Occult Blood Urine Nitrite Urine Bilirubin Urine Urobilinogen Ur Leukocyte Esterase Urine RBC Urine WBC Ur Squamous Epith Cells Urine Bacteria Urine Mucus Urine Potassium Urine Opiates Screen Urine Methadone Screen Acetaminophen Ur Barbiturates Screen Ur Phencyclidine Scrn Ur Amphetamines Screen U Methamphetamin-MDMA U Benzodiazepines Scrn Urine Cocaine Screen U Cannabinoids Screen Ur Drug Screen Comment Monoscreen POC Glucose 10/10/18 10/10/18 10/10/18 11:07 07:52 02:18 POC Glucose 203 H 259 H 271 H Medical Necessity - Tobacco Use Smoking Status: Current every day smoker Tobacco Use: Cigarettes Assessment/Plan All Active Problems Sepsis (Acute) Transaminitis (Acute) Hyperbilirubinemia (Acute) 1. Acute sepsis and Bacteremia 2/2 unclear source of infection - Fever of 103.2. Tahcycardic, tachypneic, lactate negative. No n/v/d. No rashes or open wounds. Borderline urine, no urinary symptoms. Contineu vanc /merem. Lipase neg. Recent MRCP neg. Check Echo. Consult ID. -there is a wound culture from right olecranon bursa that showed staph - will check for wounds/cellulitis. 2. Hyponatremia, hypokalemia, hypomagnesemia - repleting, trend. 3. Nicotine abuse - cessation. 4. Pancytopenia - ? liver dz, etiology unclear. 5. Transaminitis - trending down. 6. DMt2 - mealtime insulin + lantus + ssi. 7. Cognitive impairment - continue home meds. DVT ppx: SCDs DC planning: PTOT. Pending further bactermic workup. This patient was seen by Brain Blunt PA-C under the supervision of Dr. Thorne.
--- NOTE | 2018-10-10 14:22 | NURSING ---
Update provided to [facility] transfer line per Dr. Thorne's request. Informed transfer line of (+) BCx2, vegetation on tricuspid valve. Transfer line representative phlebotomy services voiced understanding.
--- NOTE | 2018-10-10 14:34 | RAD_ITS ---
STUDY: X-RAY - RIGHT KNEE REASON FOR EXAM: Male, 38 years old. Possible sepsis. TECHNIQUE: 3 view(s) of the knee. COMPARISON: None. FINDINGS: Normal visualized distal femur. Normal visualized proximal tibia and fibula. Normal proximal tibiofibular articulation. Normal medial femorotibial compartment. Normal lateral femorotibial compartment. Normal patellofemoral articulation. The soft tissue structures are unremarkable. RAD/Knee 3 Views IMPRESSION: Normal x-ray examination of the knee. Electronically Signed: Hussein Loera, at 15:15 EDT , Service support ,
--- NOTE | 2018-10-10 14:42 | VDUE_ITS ---
Reason For Study: Pain Right Proximal Right jugular vein is spontaneous, widely patent, phasic, with no intraluminal echogenicity noted. Right subclavian vein is spontaneous, widely patent, phasic, with no intraluminal echogenicity noted. Right Lower Arm Right radial vein is compressible. Right ulnar vein is compressible. Right Arm Right axillary vein is spontaneous, patent, phasic, competent, compressible and demonstrates augmentation. Right brachial vein is compressible. Rt Cephalic vein is compressible from wrist to below antecube and from shoulder to junction. Acute superficial vein thrombosis is noted in the righ cephalic vein from antecube to axillary. Right basilic vein is compressible. Patient Safety Prelim to PCU Nurse. Interpretation Summary There is no evidence of right upper extremity deep vein thrombosis. Superficial thrombophlebitis right cephalic vein upper arm Ordering Physician: Amy Thorne Referring Physician: MD Dalia Fitz Performed By: Cassia Loera RVT ?
--- NOTE | 2018-10-10 15:01 | PCM.HP.ID ---
Problem List (1) Endocarditis due to methicillin susceptible Staphylococcus aureus (MSSA) Status: Acute Reason for Consult: bacteremia Consulted by: Dr. Thorne History of Present Illness: The patient is a 38 year old M with Asperger's, lives in intermediate, recent admission for hyperglycemia, new dx of DM. Transferred to [facility] due to abnormal LFTs. While there, he reports peripheral iv in R antecub with purulent drainage when it was removed. Discharged from hospital, then over the past few days with fever, chills. Also reports one day h/o R knee pain, swelling. No recent falls/trauma/cellulitis. Pain in knee worse with movement. Came to ED, bilirubin was up, found to have severe sepsis. Admitted on vanc/meropenem. Feeling better, tmax down from 103.2. Bcx now with GPC in 2 sets, and TTE shows large TV veg. Full ROS performed and neg except as noted above. No h/o IVDU. No h/o sexual activity. - Medical History Past Medical History (Chronic Problems): Chronic Problems Diabetes (Chronic) Allergies/Adverse Reactions: Allergies clindamycin Adverse Reaction (Verified 10/09/18 18:19) Unknown Home Medications: Ambulatory Orders Medication Instructions Recorded Fluoxetine [Prozac] 20 mg PO DAILY 05/23/13 Methylphenidate HCl [Methylin] 10 mg PO DAILY 05/23/13 Propranolol HCl [Inderal LA (Beta 80 mg PO BID 05/23/13 Maureen)] Ranitidine [Zantac] 150 mg PO BID 05/23/13 Risperidone [Risperidone Odt] 1 mg PO DAILY 05/23/13 Amitriptyline HCl 10 mg PO QHS 09/28/18 Cetirizine HCl [Zyrtec] 10 mg PO DAILY 09/28/18 Rizatriptan Benzoate [Rizatriptan] 10 mg PO X1 PRN 09/28/18 Insulin Aspart [Novolog Flexpen 7 units SUBCUT TIDCM 10/09/18 ([facility])] Insulin Glargine [Lantus SoloStar 18 units SQ QHS 10/09/18 Pen] - Social History Tobacco Use: cigarettes Vital Signs Temp Pulse Resp BP Pulse Ox 97.8 F 99 18 91/58 L 99 10/10/18 14:56 10/10/18 14:56 10/10/18 14:56 10/10/18 14:56 10/10/18 14:56 Oxygen Flow Rate (L/min) 2 Oxygen Delivery Method Room Air Weight: 77.3 kg Body Mass Index (BMI) 27.5 Microbiology Past 72 Hours 10/10/18 02:18 Bacteria Detection (PCR) - Final Blood Culture (Wb) - Right Hand Staphylococcus aureus Blood Culture - Preliminary 10/10/18 02:26 Blood Culture - Preliminary Blood Culture (Wb) - Left Hand Laboratory Tests Past 24 Hrs 10/09/18 10/09/18 10/09/18 20:40 20:40 20:40 WBC 10.3 RBC 3.59 L Hgb 10.6 L Hct 29.4 L MCV 81.9 MCH 29.5 MCHC 36.1 H RDW Std Deviation 37.9 RDW Coeff of Fely 12.6 Plt Count 114 L MPV 11.3 Immature Gran % (Auto) 2.000 H Neut % (Auto) 86.2 H Lymph % (Auto) 6.1 L Real % (Auto) 5.4 Eos % (Auto) 0.1 Baso % (Auto) 0.2 Absolute Neuts (auto) 8.9 H Absolute Lymphs (auto) 0.63 L Absolute Nucleated RBC 0.00 Nucleated RBC % 0 PT 13.8 INR 1.1 Sodium 122 L Potassium 2.7 L* Chloride 84 L Carbon Dioxide 29.0 Anion Gap 9 BUN 33 H Creatinine 1.40 H Estim Creat Clear Calc 72.52 Est GFR (MDRD) Af Amer 73 Est GFR (MDRD) Non-Af 60 BUN/Creatinine Ratio 23.6 H Glucose 266 H Lactic Acid Calcium 8.1 L Magnesium Total Bilirubin 4.50 H Direct Bilirubin 3.80 H AST 75 H ALT 65 H Alkaline Phosphatase 422 H Ammonia Total Protein 6.3 L Albumin 1.9 L Globulin 4.4 H Albumin/Globulin Ratio Lipase 171 Urine Color Urine Clarity Urine pH Ur Specific [place] Urine Protein Urine Glucose (UA) Urine Ketones Urine Occult Blood Urine Nitrite Urine Bilirubin Urine Urobilinogen Ur Leukocyte Esterase Urine RBC Urine WBC Ur Squamous Epith Cells Urine Bacteria Urine Mucus Urine Potassium Urine Opiates Screen Urine Methadone Screen Acetaminophen Ur Barbiturates Screen Ur Phencyclidine Scrn Ur Amphetamines Screen U Methamphetamin-MDMA U Benzodiazepines Scrn Urine Cocaine Screen U Cannabinoids Screen Ur Drug Screen Comment Monoscreen 0710/09/18 10/09/18 20:40 20:40 21:37 WBC RBC Hgb Hct MCV MCH MCHC RDW Std Deviation RDW Coeff of Fely Plt Count MPV Immature Gran % (Auto) Neut % (Auto) Lymph % (Auto) Real % (Auto) Eos % (Auto) Baso % (Auto) Absolute Neuts (auto) Absolute Lymphs (auto) Absolute Nucleated RBC Nucleated RBC % PT INR Sodium Potassium Chloride Carbon Dioxide Anion Gap BUN Creatinine Estim Creat Clear Calc Est GFR (MDRD) Af Amer Est GFR (MDRD) Non-Af BUN/Creatinine Ratio Glucose Lactic Acid 0.8 Calcium Magnesium 1.0 L Total Bilirubin Direct Bilirubin AST ALT Alkaline Phosphatase Ammonia < 10.0 L Total Protein Albumin Globulin Albumin/Globulin Ratio Lipase Urine Color Urine Clarity Urine pH Ur Specific [place] Urine Protein Urine Glucose (UA) Urine Ketones Urine Occult Blood Urine Nitrite Urine Bilirubin Urine Urobilinogen Ur Leukocyte Esterase Urine RBC Urine WBC Ur Squamous Epith Cells Urine Bacteria Urine Mucus Urine Potassium Urine Opiates Screen Urine Methadone Screen Acetaminophen Ur Barbiturates Screen Ur Phencyclidine Scrn Ur Amphetamines Screen U Methamphetamin-MDMA U Benzodiazepines Scrn Urine Cocaine Screen U Cannabinoids Screen Ur Drug Screen Comment Monoscreen 10/09/18 10/09/18 10/09/18 21:44 21:44 21:44 WBC RBC Hgb Hct MCV MCH MCHC RDW Std Deviation RDW Coeff of Fely Plt Count MPV Immature Gran % (Auto) Neut % (Auto) Lymph % (Auto) Real % (Auto) Eos % (Auto) Baso % (Auto) Absolute Neuts (auto) Absolute Lymphs (auto) Absolute Nucleated RBC Nucleated RBC % PT INR Sodium Potassium Chloride Carbon Dioxide Anion Gap BUN Creatinine Estim Creat Clear Calc Est GFR (MDRD) Af Amer Est GFR (MDRD) Non-Af BUN/Creatinine Ratio Glucose Lactic Acid Calcium Magnesium Total Bilirubin Direct Bilirubin AST ALT Alkaline Phosphatase Ammonia Total Protein Albumin Globulin Albumin/Globulin Ratio Lipase Urine Color Yellow Urine Clarity Clear Urine pH 6.0 Ur Specific [place] 1.010 Urine Protein 30 H Urine Glucose (UA) 250 H Urine Ketones Negative Urine Occult Blood 25 H Urine Nitrite Negative Urine Bilirubin Negative Urine Urobilinogen 8 H Ur Leukocyte Esterase 25 H Urine RBC 0 SEEN Urine WBC 0-5 SEEN Ur Squamous Epith Cells 0 SEEN Urine Bacteria 1+ Urine Mucus 0 SEEN Urine Potassium 13.0 Urine Opiates Screen NEGATIVE Urine Methadone Screen NEGATIVE Acetaminophen Ur Barbiturates Screen NEGATIVE Ur Phencyclidine Scrn NEGATIVE Ur Amphetamines Screen NEGATIVE U Methamphetamin-MDMA NEGATIVE U Benzodiazepines Scrn NEGATIVE Urine Cocaine Screen NEGATIVE U Cannabinoids Screen NEGATIVE Ur Drug Screen Comment Monoscreen 10/09/18 10/09/18 10/10/18 22:27 22:27 02:18 WBC 10.8 RBC 3.30 L Hgb 9.5 L Hct 27.1 L MCV 82.1 MCH 28.8 MCHC 35.1 RDW Std Deviation 38.6 RDW Coeff of Fely 12.7 Plt Count 104 L MPV 11.2 Immature Gran % (Auto) 3.300 H Neut % (Auto) 83.8 H Lymph % (Auto) 5.7 L Real % (Auto) 6.7 Eos % (Auto) 0.3 Baso % (Auto) 0.2 Absolute Neuts (auto) 9.0 H Absolute Lymphs (auto) 0.61 L Absolute Nucleated RBC 0.00 Nucleated RBC % 0 PT INR Sodium Potassium Chloride Carbon Dioxide Anion Gap BUN Creatinine Estim Creat Clear Calc Est GFR (MDRD) Af Amer Est GFR (MDRD) Non-Af BUN/Creatinine Ratio Glucose Lactic Acid Calcium Magnesium Total Bilirubin Direct Bilirubin AST ALT Alkaline Phosphatase Ammonia Total Protein Albumin Globulin Albumin/Globulin Ratio Lipase Urine Color Urine Clarity Urine pH Ur Specific [place] Urine Protein Urine Glucose (UA) Urine Ketones Urine Occult Blood Urine Nitrite Urine Bilirubin Urine Urobilinogen Ur Leukocyte Esterase Urine RBC Urine WBC Ur Squamous Epith Cells Urine Bacteria Urine Mucus Urine Potassium Urine Opiates Screen Urine Methadone Screen Acetaminophen < 2.0 L Ur Barbiturates Screen Ur Phencyclidine Scrn Ur Amphetamines Screen U Methamphetamin-MDMA U Benzodiazepines Scrn Urine Cocaine Screen U Cannabinoids Screen Ur Drug Screen Comment Monoscreen Negative 10/10/18 10/10/18 10/10/18 02:18 08:02 08:02 WBC RBC Hgb Hct MCV MCH MCHC RDW Std Deviation RDW Coeff of Fely Plt Count MPV Immature Gran % (Auto) Neut % (Auto) Lymph % (Auto) Real % (Auto) Eos % (Auto) Baso % (Auto) Absolute Neuts (auto) Absolute Lymphs (auto) Absolute Nucleated RBC Nucleated RBC % PT INR Sodium 125 L 128 L Potassium 2.8 L 3.0 L Chloride 88 L 94 L Carbon Dioxide 28.0 27.0 Anion Gap 9 7 BUN 31 H 34 H Creatinine 1.37 H 1.29 Estim Creat Clear Calc 65.97 70.06 Est GFR (MDRD) Af Amer 75 80 Est GFR (MDRD) Non-Af 62 66 BUN/Creatinine Ratio 22.6 H 26.4 H Glucose 263 H 262 H Lactic Acid Calcium 7.4 L 7.8 L Magnesium 1.7 Total Bilirubin 4.80 H Direct Bilirubin AST 76 H ALT 61 Alkaline Phosphatase 381 H Ammonia Total Protein 5.0 L Albumin 1.7 L Globulin 3.3 Albumin/Globulin Ratio 0.5 L Lipase Urine Color Urine Clarity Urine pH Ur Specific [place] Urine Protein Urine Glucose (UA) Urine Ketones Urine Occult Blood Urine Nitrite Urine Bilirubin Urine Urobilinogen Ur Leukocyte Esterase Urine RBC Urine WBC Ur Squamous Epith Cells Urine Bacteria Urine Mucus Urine Potassium Urine Opiates Screen Urine Methadone Screen Acetaminophen Ur Barbiturates Screen Ur Phencyclidine Scrn Ur Amphetamines Screen U Methamphetamin-MDMA U Benzodiazepines Scrn Urine Cocaine Screen U Cannabinoids Screen Ur Drug Screen Comment Monoscreen - Other Studies Radiology: [] reviewed Other Studies: [] Route of nutrition/ use of supplements: [] Nutritional Intake: [] IV Site: [] [place] Catheter: [] - Physical Exam General: Alert, Oriented x3, Cooperative, No apparent distress HEENT: Atraumatic, PERRLA, EOMI Neck: Supple, No Nodes Lungs: Clear to auscultation, Normal air movement Cardiovascular: Regular rate, Regular Rhythm, Murmur Abdomen: Soft, Non Tender, Non-Distended Extremities: No edema Skin: No rashes, - - no janeway/osler/splinter hemorrhages. IV Site: Peripheral, without redness, - - former PIV site in R antecub with small ulceration, no purulence, but vein proximal to that site with some swelling/firmness/tenderness Musculoskeletal: - - R knee mild swelling and tenderness. No pain over other joints or spine. Neurological: Cranial nerves II-XII grossly intact - Assessment/Plan Antibiotics: [] Assessment/Plan: [] Active and Suspected Problems Hyperbilirubinemia (Acute) severe sepsis due to MSSA endocarditis - suspected source is R antecubital former iv site. Bcx pcr with MSSA. Had remote h/o MSSA in R elbow in 2013. TTE shows large 1.2x2.8/1.3x3.1 cm TV veg. Labs show some WARD, lactic acidosis, and elevated bili. CT abd done here. On vanc/meropenem, will narrow to zosyn in order to keep some GI coverage given abnormal LFTs. Would check doppler of RUE. Transfer planned. Would recommend cardiac surgery eval, would need vascular surgery eval if there is a suppurative thrombophlebitis in RUE. Currently, I do not see any purulence. Also concern for possible metastatic infection to R knee; xrays ordered, may need aspiration. Will follow, thank you, d/w Dr. Thorne.
--- NOTE | 2018-10-10 15:57 | CHAPLAIN ---
Type of Pastoral Visit _x__ Initial Visit ___ Follow-up Visit ___ On-call Visit ___ General Patient Visit ___ Spiritual Assessment ___ Family Conference ___ Bereavement ___ Rapid Response ___ Code Blue ___ Other (describe below) Pastoral Care Referral From _x__ Patient ___ Family ___ Nurse ___ Physician ___ Panel Lay Up Worker ___ Cook Jelly ___ Other (describe below) Sacrament/Intervention _x__ Active listening ___ Anointing ___ Restoration ___ Bereavement ___ Communion ___ [place] exploration ___ ___ Life review _x__ Prayer ___ Reconciliation ___ Sacrament of Sick _x__ Supportive presence ___ Wedding ___ Other (describe below) Pastoral Comments
[2018-10-10] MEDS: Enoxaparin 80 MG/0.8 ML Syringe SC (16:16)
--- NOTE | 2018-10-10 16:33 | NURSING ---
Spoke with Sky regarding our physician's increasing concern for patient's stability. Sky recommended our physician call the transfer line and request a re-conference with [facility] . Dr Thorne updated.
[2018-10-10 16:55] LABS: ALB/GLOB Ratio 0.4 RATIO (0.9-2.4); AST(SGOT) 70 U/L (15-37); Alanine Aminotransfer ALT/SGPT 58 U/L (16-61); Albumin, Serum 1.5 g/dL (3.2-5.0); Alkaline Phosphatase 394 U/L (45-117); Anion Gap 9 (5-15); BUN 33 mg/dL (7-18); BUN/Creat Ratio 26.4 RATIO (10-20); Chloride 95 mmol/L (98-107); Creatinine, Serum 1.25 mg/dL (0.70-1.30); EST Glomerular Filtration Rate 69 mL/min (>60); Est Glom Filt Rate - Afr Amer 83 mL/min (>60); Estimated Creatinine Clearance 72.31 ml/min; Globulin 3.6 g/dL (2.2-4.2); Glucose 194 mg/dL (74-106); Magnesium 2.4 mg/dL (1.6-2.6); Potassium 3.5 mmol/L (3.5-5.1); Protein, Total 5.1 g/dL (6.4-8.2); Sodium Level 131 mmol/L (136-145)
[2018-10-10 17:06] LABS: Bedside Glucose 196 mg/dL (70-110)
--- NOTE | 2018-10-10 19:15 | NURSING ---
This RN called report to RETIREMENT SPECIALISTYARIEL Diallo.
--- NOTE | 2018-10-10 20:00 | DS.PCM_ITS ---
Discharge Date and Diagnosis Date of Admission: 10/09/18 Date of Discharge: 10/10/18 - Primary Discharge Diagnosis (1) Acute Severe Sepsis which transitioned to Septic Shock secondary to MSSA Bacteremia suspected Secondary to RUE Infected IV Site (2) Hypoxic Respiratory Failure, secondary to #1, Decompensated (3) Hyperbilirubinemia, Transaminitis,Unclear Initial Etiology, likely secondary to #1 worsened status (4) Acute Normocytic anemia, thrombocytopenia, likely secondary to #1, unfortunately, given #4 (5) RUE Acute SVT and DVT (+ SVT US AC->shoulder, bracheocephalic) (5) Hyponatremia, hypovolemic, secondary to #1 (6) Hypomagnesium (7) Hypokalemia (8) Acute kidney injury, secondary to acute presentation, #1, #2, #3, #5 (9) Diabetes mellitus type II (10) Asperger's Syndrome - Secondary Discharge Diagnosis Chronic Problems Diabetes (Chronic) Hospital Course and Treatment Dr. Ruiz Contacted regarding patient to evaluate patient, but for next day service Dr. Bright Infectious disease Operations: None Procedures: 2-D Echocardiogram, EKG Summary of Care Provided: The patient is a 38 y/o M w/ PMHx: Asperger's living in Longterm, recent New Onset Diabetes mellitus type II, Recent admission w/ Elevated LFTs/Bilirubin of unclear etiology previously transferred to [facility] for further evaluation per GI/hepatology who presented to [facility] ED on 10/09/18 w/ history of onset jaundice with decreased appetite, fever chills, diaphoresis as well as nausea. Admission presentation with T 103.2, HR 107, RR 32, CBC w/ WBC 10.3, Hgb 10.6, Plts 114 with L shift, normal coags, CMP w/ Na 122, K 2.7, Chl 84, BUN/Cr 33/1.40, glucose 266, T Bili 4.50, DBili 3.80, AST/ALT 75/65, Alk phos 422, lipase 171, UA without obvious infection with UCx pending, CT A/P w/ no acute abdominal or pelvic pathology, splenomegaly, bilateral renal cysts, absence of the distal pancreas, x-ray with no acute thoracic pathology. Patient admitted to PCU, maintained on monitor, treated with IV meropenem initially, transitioned 10/10/18 to zosyn and vanc w/ noted Bld Cx x 2 w/ MSSA with history of remote MSSA R elbow burse 2013, ECHO obtained w/ noted large 1.2x2.8/1.3x3.1 cm TV vegetation with patietn IV abx transition as noted. Possible sources investigated w/ ? R knee, but normal plain film with need to consider aspiration with possible metastatic infection as etiology for noted discomfort R knee and also more concerning R AC w/ ? site infection w/ patient noting purulent discharge following removal of his IV from OSH w/ evaluation w/ + DVT noted with ? suppurative thrombophlebitis not apparent. Admission TBil 4.50, recent records w/ TBili 1.60, increasing with noted increasing DBili 3.80. Recent evaluation at [facility]. Patient had planned Bx however given bacteremia would need to wait until negative blood cultures. Admission BUN/Cr 33.1,40, prior baseline creatinine noted to be 0.9. Will hydrate, hold nephrotoxic medications, improving, 10/10/18 BUN/Cr 34/1.29. Admission Na 122, corrected level with his glucose noted to be 125, likely secondary to acute presentation with aggressive hydration administered with improved levels. Magnesium and potassium also decreased, corrected. Discussed case with Dr. Craig, Cardiology as well as Dr. Ruiz ICU Physician given severity of his current status and still awaiting transfer bed; however, patient decompensated prior to transfer on 10/11/18 at approximately 7-7:30 pm with acute hypoxic respiratory failure, hypotension, requiring IV boluses, BIPAP and transition to the ICU. Patient transfer transitioned from cardiac bed to the ICU. Patient transferred to [facility] in critical condition. - Physical Exam Vital Signs Temp Pulse Resp BP Pulse Ox 97.9 F 99 25 H 84/65 L 100 10/10/18 20:02 10/10/18 22:00 10/10/18 22:00 10/10/18 22:00 10/10/18 22:00 Oxygen Flow Rate (L/min) 6 Oxygen Delivery Method Nasal Cannula Weight: 170 lb 6.677 oz Body Mass Index (BMI) 27.5 Intake and Output for Last 24 Hours 10/09/18 10/10/18 10/11/18 23:59 23:59 23:59 Intake Total 1801 / 1801 Output Total 450 / 450 Balance 1351 / 1351 Microbiology Past 72 Hours 10/10/18 02:18 Bacteria Detection (PCR) - Final Blood Culture (Wb) - Right Hand Staphylococcus aureus Blood Culture - Preliminary 10/10/18 02:26 Blood Culture - Preliminary Blood Culture (Wb) - Left Hand Laboratory Tests Past 24 Hrs 10/09/18 10/10/18 10/10/18 22:27 08:02 08:02 WBC RBC Hgb Hct MCV MCH MCHC RDW Std Deviation RDW Coeff of Fely Plt Count MPV PT INR APTT Specimen Type Sample Site pH Bicarbonate Actual POC Total CO2 Base Excess O2 Saturation O2 % ABG pCO2 ABG pO2 Arnol Test Respiration Rate O2 Delivery Device Liter Flow EPAP IPAP Blood Gas Notified Whom Blood Gas Notified Time Sodium 128 L Potassium 3.0 L Chloride 94 L Carbon Dioxide 27.0 Anion Gap 7 BUN 34 H Creatinine 1.29 Estim Creat Clear Calc 70.06 Est GFR (MDRD) Af Amer 80 Est GFR (MDRD) Non-Af 66 BUN/Creatinine Ratio 26.4 H Glucose 262 H Lactic Acid Calcium 7.8 L Magnesium 1.7 Total Bilirubin AST ALT Alkaline Phosphatase Troponin I Total Protein Albumin Globulin Albumin/Globulin Ratio Monoscreen Negative 10/10/18 10/10/18 10/10/18 15:25 20:03 21:04 WBC RBC Hgb Hct MCV MCH MCHC RDW Std Deviation RDW Coeff of Fely Plt Count MPV PT INR APTT Specimen Type ART Sample Site L Radial pH 7.42 Bicarbonate Actual 21.8 L POC Total CO2 23 Base Excess -3 L O2 Saturation 96 O2 % ABG pCO2 33.3 L ABG pO2 81 Arnol Test POS Respiration Rate O2 Delivery Device Nasal Can Liter Flow 6.0 EPAP IPAP Blood Gas Notified Whom [facility] Blood Gas Notified Time 1955 Sodium 131 L Potassium 3.5 Chloride 95 L Carbon Dioxide 27.0 Anion Gap 9 BUN 33 H Creatinine 1.25 Estim Creat Clear Calc 72.31 Est GFR (MDRD) Af Amer 83 Est GFR (MDRD) Non-Af 69 BUN/Creatinine Ratio 26.4 H Glucose 194 H Lactic Acid Calcium 8.0 L Magnesium 2.4 Total Bilirubin 4.60 H AST 70 H ALT 58 Alkaline Phosphatase 394 H Troponin I < 0.015 Total Protein 5.1 L Albumin 1.5 L Globulin 3.6 Albumin/Globulin Ratio 0.4 L Monoscreen 10/10/18 10/10/18 10/10/18 21:23 21:25 21:25 WBC 10.5 RBC 3.78 L Hgb 11.0 L Hct 31.3 L MCV 82.8 MCH 29.1 MCHC 35.1 RDW Std Deviation 39.4 RDW Coeff of Fely 13.1 Plt Count 96 L MPV 11.7 PT 14.8 INR 1.2 APTT 32.3 Specimen Type ART Sample Site L Radial pH 7.44 Bicarbonate Actual 21.4 L POC Total CO2 22 Base Excess -3 L O2 Saturation 92 L O2 % 45 ABG pCO2 31.6 L ABG pO2 60 L Arnol Test POS Respiration Rate 14 O2 Delivery Device Bi / C PAP Liter Flow EPAP 5 IPAP 9 Blood Gas Notified Whom [facility] Blood Gas Notified Time 2116 Sodium Potassium Chloride Carbon Dioxide Anion Gap BUN Creatinine Estim Creat Clear Calc Est GFR (MDRD) Af Amer Est GFR (MDRD) Non-Af BUN/Creatinine Ratio Glucose Lactic Acid Calcium Magnesium Total Bilirubin AST ALT Alkaline Phosphatase Troponin I Total Protein Albumin Globulin Albumin/Globulin Ratio Monoscreen 10/10/18 10/10/18 21:25 21:25 WBC RBC Hgb Hct MCV MCH MCHC RDW Std Deviation RDW Coeff of Fely Plt Count MPV PT INR APTT Specimen Type Sample Site pH Bicarbonate Actual POC Total CO2 Base Excess O2 Saturation O2 % ABG pCO2 ABG pO2 Arnlo Test Respiration Rate O2 Delivery Device Liter Flow EPAP IPAP Blood Gas Notified Whom Blood Gas Notified Time Sodium 128 L Potassium 3.6 Chloride 97 L Carbon Dioxide 25.0 Anion Gap 6 BUN 30 H Creatinine 1.33 H Estim Creat Clear Calc 67.96 Est GFR (MDRD) Af Amer 77 Est GFR (MDRD) Non-Af 64 BUN/Creatinine Ratio 22.6 H Glucose 136 H Lactic Acid 0.8 Calcium 7.8 L Magnesium Total Bilirubin 4.80 H AST 81 H ALT 61 Alkaline Phosphatase 469 H Troponin I Total Protein 5.5 L Albumin 1.5 L Globulin 4.0 Albumin/Globulin Ratio 0.4 L Monoscreen POC Glucose 10/10/18 10/10/18 10/10/18 19:59 16:49 11:07 POC Glucose 137 H 196 H 203 H 10/10/18 07:52 POC Glucose 259 H Home Medications: Medications to take at Discharge Fluoxetine [Prozac] 20 mg PO DAILY 05/23/13 Methylphenidate HCl [Methylin] 10 mg PO DAILY 05/23/13 Propranolol HCl [Inderal LA (Beta Maureen)] 80 mg PO BID 05/23/13 Ranitidine [Zantac] 150 mg PO BID 05/23/13 Risperidone [Risperidone Odt] 1 mg PO DAILY 05/23/13 Amitriptyline HCl 10 mg PO QHS 09/28/18 Cetirizine HCl [Zyrtec] 10 mg PO DAILY 09/28/18 Rizatriptan Benzoate [Rizatriptan] 10 mg PO X1 PRN 09/28/18 Insulin Aspart [Novolog Flexpen (BKC)] 7 units SUBCUT TIDCM 10/09/18 Insulin Glargine [Lantus SoloStar Pen] 18 units SQ QHS 10/09/18 Primary Care Physician: Fitz Gómez MD [Primary Care Provider] - Disposition: Acute care Hospital Minutes spent on discharge:: 35 Patient Condition:: Critical Medical Necessity - Tobacco Use Smoking Status: Current every day smoker Tobacco Use: Cigarettes Meaningful Use Info Meaningful Use Diagnoses (Choose all that apply): None applicable, VTE - VTE Anticoag overlap given w/in hospital stay or rx'd at dc?: No Pt receive overlap for 5 days?: No Reason overlap not ordered, prescribed, or given for 5 days: Treatment Not Mimi cated Code Visit Inpatient E&M: 99429 Disch Hosp
[2018-10-10 20:06] LABS: Bedside Glucose 137 mg/dL (70-110)
[2018-10-10 20:06] LABS: Allen Test POS; Base Excess -3 mmol/L (-2 to +2); Bicarbonate 21.8 mmol/L (22-26); Blood Gas Specimen Type ART; O2 Delivery Device Nasal Can; PO2 81 mmHG (75-100); SITE L Radial; SO2 96 % (95-99); Time Given 1956; Total Carbon Dioxide 23 mmol/L; pCO2 33.3 mmHg (35-45); pH 7.42 (7.35-7.45)
--- NOTE | 2018-10-10 20:10 | NURSING ---
This RN came into the pt's after being informed that pt's family would like an update. This RN came to the room at 18:55 at this time pt c/o of shortness and chest palpitations. VS were obtained by Chi Spann RN. Pt satting 74% on RA, placed on O2. Dr. Thorne paged through the charge operator at 19:05 and returned call at 19:12. At this time she put in order for pt to go to ICU and EKG. This RN called RT and EKG obtained before tx. Charge RNs Bernarda Fernandez and Salena Bond informed.
--- NOTE | 2018-10-10 20:20 | NURSING ---
This RN called report to YARIEL Jane at [facility].
--- NOTE | 2018-10-10 20:21 | EKG12_ITS ---
Test Reason : CP Blood Pressure : / mmHG Vent. Rate : 113 BPM Atrial Rate : 113 BPM P-R Int : 158 ms QRS Dur : 078 ms QT Int : 324 ms P-R-T Axes : 028 079 039 degrees QTc Int : 444 ms Sinus tachycardia Baseline Artifact When compared with ECG of 28-SEP-2018 17:30, Vent. rate has increased BY 38 BPM Questionable change in QRS axis Nonspecific T wave abnormality, improved in Inferior leads Confirmed by BEE ESPINOZA, KELLY ([id number]), manuscript editor LUCIA JOSÉ ([id number]) on 10/12/2018 2:16:24 PM Referred By: Zack Fontanez Confirmed By:DANIELLE GAMBOA MD
--- NOTE | 2018-10-10 20:36 | NURSING ---
Addendum entered by Sumi Diallo 10/10/18 21:10: correction Ok not Josiah Original Note: This RN has had multiple calls from [facility], spoke with Radha from the transport center. And also an Josiah from the transport team. They were updated on pt condition and ICU status. They are working with their docs to see what floor would be appropriate for him.
[2018-10-10] MEDS: Ipratropium/Albuterol Sulfate 3 ML AMPUL.NEB INHALATION (20:46)
--- NOTE | 2018-10-10 21:00 | NURSING ---
Spoke with Rica from the transport line will call back shortly for physician to physician consult. Dr. Fontanez in ICU working with patient and family to facilitate transfer.
--- NOTE | 2018-10-10 21:03 | NURSING ---
Dr. Fontanez in unit on phone with [facility] physician for consult.
[2018-10-10] MEDS: 0.9% Normal Saline 1,000 ML 1000 ML IV ×2 (21:06→22:20)
--- NOTE | 2018-10-10 21:43 | PCM.PN.BLA ---
Progress Note Patient was seen from 7:40pm to 9:40pm 2143 Called by nursing team to see Patient with infective endocarditis who had been transferred to the ICU because of acute respiratory distress. On examination patient respiratory rate was high 40S to 50s. Patient noted to be using accessory muscles of respiration. ABG showed showed normal PH but with PCO2 of 33.3; and PO2 of 81. Patient was placed on BiPAP because of impending respiratory failure. Patient was lethargic. Patient was placed on bipap because of impending respiratory failure. His systolic pressure dropped to the high 80s to low 90s. Accordingly 30 mL's per kilogram was started up a septic shock protocol. Because patient had been moved from PCU to ICU his bed at [facility] had been cancelled and a different bed would have to be sought. Case was rediscussed with [facility]. Per transfer team at [facility] ABG and lactic acid was repeated. ABG showed worsening hypoxia. His PCO2 was fairly stable evidence decreased from 33.3-31.6. His lactic acid remains stable. Requested air transport to the [facility]. Discussed case with family and nursing staff. Code Visit Procedures: 13952 Critial Care Addl 30 Min
[2018-10-10 21:46] LABS: Hematocrit 31.3 % (40-54); Mean Corp Hgb Conc 35.1 g/dL (32-36); Mean Corpuscular Hgb 29.1 pg (27.0-32.0); Mean Corpuscular Volume 82.8 fL (80-94); Mean Platelet Vol. 11.7 fl (6.2-12.0); Platelet Count 96 K/mm3 (150-450); RBC Distribution Width CV 13.1 % (11.6-14.6); RBC Distribution Width SD 39.4 fl (35.1-43.9); Red Blood Count 3.78 M/mm3 (4.6-6.2); White Blood Count 10.5 K/mm3 (4.4-11.0)
[2018-10-10 21:54] LABS: International Normalized Ratio 1.2; Prothrombin Time (Protime)PT. 14.8 SECONDS (11.7-14.9)
[2018-10-10 21:55] LABS: Partial Thromboplast Time 32.3 Seconds (24.1-36.2)
--- NOTE | 2018-10-10 22:01 | NURSING ---
Report given to Devyn at [facility] on coronary care unit.
[2018-10-10 22:02] LABS: ALB/GLOB Ratio 0.4 RATIO (0.9-2.4); AST(SGOT) 81 U/L (15-37); Alanine Aminotransfer ALT/SGPT 61 U/L (16-61); Albumin, Serum 1.5 g/dL (3.2-5.0); Alkaline Phosphatase 469 U/L (45-117); Anion Gap 6 (5-15); BUN 30 mg/dL (7-18); BUN/Creat Ratio 22.6 RATIO (10-20); Calcium,Total 7.8 mg/dL (8.5-10.1); Chloride 97 mmol/L (98-107); Creatinine, Serum 1.33 mg/dL (0.70-1.30); EST Glomerular Filtration Rate 64 mL/min (>60); Est Glom Filt Rate - Afr Amer 77 mL/min (>60); Estimated Creatinine Clearance 67.96 ml/min; Glucose 136 mg/dL (74-106); Potassium 3.6 mmol/L (3.5-5.1); Protein, Total 5.5 g/dL (6.4-8.2); Sodium Level 128 mmol/L (136-145)
[2018-10-10 22:08] LABS: Lactic Acid 0.8 mmol/L (0.4-2.0)
--- NOTE | 2018-10-10 22:28 | NURSING ---
Pt being transported to [facility] via air transport at this time, YARIEL Shepard assuming care from [facility] updated.
[2018-10-11 06:36] LABS: Allen Test POS; Base Excess -3 mmol/L (-2 to +2); Bicarbonate 21.4 mmol/L (22-26); Blood Gas Specimen Type ART; EPAP 5; FI02 45; IPAP 9; PO2 60 mmHG (75-100); RR 14; SITE L Radial; SO2 92 % (95-99); Time Given 2117; Total Carbon Dioxide 22 mmol/L; pCO2 31.6 mmHg (35-45); pH 7.44 (7.35-7.45)
== END 2018-10-10 22:25 | disposition short-term general hospital (02) | DRG 871 ==
LOC: ED 19:36 → PCU 10-10 01:31 → ICU 10-10 19:39
PROVIDERS: Internal Medicine Critical Care Medicine; Physician Assistant; Admitting Provider Hospitalist; Emergency Provider Emergency Medicine; Family Provider Family Medicine; PCP Family Medicine; Referring Provider Hospitalist; Visit Provider Family Medicine
DX: A41.01 Sepsis due to Methicillin susceptible Staphylococcus aureus (principal); R65.21 Severe sepsis with septic shock; I33.0 Acute and subacute infective endocarditis; J96.01 Acute respiratory failure with hypoxia; F84.5 Asperger's syndrome; E87.1 Hypo-osmolality and hyponatremia; N17.9 Acute kidney failure, unspecified; I82.621 Acute embolism and thrombosis of deep veins of right upper extremity; R17 Unspecified jaundice; E11.9 Type 2 diabetes mellitus without complications; E87.6 Hypokalemia; E83.42 Hypomagnesemia; E86.1 Hypovolemia; D69.59 Other secondary thrombocytopenia; D64.9 Anemia, unspecified; F17.210 Nicotine dependence, cigarettes, uncomplicated; Z79.4 Long term (current) use of insulin; R74.0 Nonspecific elevation of levels of transaminase and lactic acid dehydrogenase [LDH]
CPT/HCPCS: 36415; 36600; 71045; 73562; 74177; 80048; 80053; 80076; 80307; 80329; 81001; 82140; 82803; 82962; 83605; 83690; 83735; 84133; 84484; 85025; 85027; 85610; 85730; 86308; 87040; 87077; 87149; 87186; 93005; 93306; 93970; 93971; 94002; 94640; 97802; 99285; J2185; J7030; J7040; J7050; Q9967; A4216; G0480; J2405

== ENCOUNTER → 2018-12-27 08:40 | Outpatient (CLI) | payer MEDICARE, MEDICAID, SELFPAY ==
[2018-10-10 01:21] VITALS: BMI 27.5
--- NOTE | 2018-12-27 09:08 | PCM.CR.ITP ---
General Information - General Information Admitting Diagnosis: TRICUSPID VALVE REPAIR Special Needs: BENNY TELLEZOME - Education/Goals Barriers to Learning: None Individual Counseling: Initial Assessment: Nicotine/Smoking, Diabetes, Stress, Family History of Heart Disease (under 65 years) Cardiac Rehabilitation Goals: 1. Maintain the individual as the primary focus of care. 2. To improve the patient's quality of life. 3. Identification of cardiac risk factors and provide cardiac risk factor management. 4. Enhance the psychosocial status of the patient. 5. Reconditioning enough to allow the patient to resume customary activities. 6. Control symptoms of cardiac disease Scale for measuring improvement of personal goals: Enter appropriate number in Comments. 2 = Unchanged. 3 = Slightly Better. 4 = Moderate Improvement. 5 = Met my Goal Personal Goals: Initial Assessment: Quit smoking (participate in smoking cessation, Improve energy level, Get back to work, or to resume activities faster, Improve knowledge of cardiac disease, Improve muscle strength and endurance, Improve diet and eating habits (eat healthier), Control risk factors (learn risk factor modification) Exercise - Initial Assessment - Visit Date of Eval: 12/27/18 - Stages of Change Stages of Change:: Action - Physician Prescribed Exercise Modalities: Treadmill, Biodyne, Airdyne, NuStep, SciFit Frequency (days/week): 3x/week for 12 weeks [36 sessions] Intensity: 60-80% age predicted maximum heart rate reserve Target Heart Rate:: 118-136 - Hypertension Do any of the following apply?: No - PT AND CAREGIVER STATES HE DOES NOT HAVE A HX OF HTN Resting Blood Pressure:: 94/64 - Intervention Home Exercise/Activity Goal:: Moderate Exercise 30 min/day x 5 days/wk - Education Goals:: Warm-up, RPE LESLIE Scale, S/S, Safe Exercise, Self-Monitoring - Exercise Program Goals Exercise Program Goals: Aerobic Activity >30 min Nutrition - Initial Assessment - Program Goals Nutrition Program Goals: LDL <70. Total Cholesterol <200. HDL >45. Triglycerides <150. HgbA1C <7%. BMI <25 - Visit Date of Assessment:: 12/27/18 - Stages of Change Stages of Change:: Action - LIPID PROFILE NOT AVAILABLE AT THIS TIME - Diabetes Diabetes:: Yes Hgb A1C: 14.4 Insulin: Yes Do you monitor your blood sugar at home?: Yes - ENCOURAGED TO BRING GLUCOSE MONITOR TO CR - Weight Management Height: 6 ft Weight:: 150 lb - Intervention Referral to dietitian:: No Referral to Diabetic Clinic:: No Will attend diet classes:: Yes - CAREGIVER STATES THEY HAVE ATTENDED DIABETIC CLASS - Education Gave educational materials for:: Signs & symptoms of hypoglycemia, Signs & symptoms of hyperglycemia, Relate diabetes to coronary artery disease, Healthy eating Tobacco - Initial Assessment - Program Goals Tobacco Program Goals: Complete smoking cessation. Attend education classes. Improve Knowledge Test score - Stage of Change Stages of Change:: Action - Learning Barriers Learning Barriers: Ready to Learn - Family Support Do you have family support?: Yes - LIVES IN [place] AND HAS SUPPORTIVE STAFF - Tobacco Use Tobacco Use: Cigarettes How many cigarettes do you smoke per day?: 20 Years Smokin Do you use smokeless tobacco?: No - Intervention Smoking Cessation Referral:: Yes - PT FEELS HE COULD USE SMOKE CESSATION PROGRAM. QUIT SMOKING 10/12, RESTART Individual Education/Counseling:: Yes - SMOKE CESSATION Education Schedule Given:: Yes - Education Attended class for:: Treating Heart Disease, How The Heart Works, What it means to have Heart Disease, How Coronary Artery Disease is Diagnosed, Risk Factors & Modifications, Living an Active Life, Nutrition, Emotions & Heart Disease Psychosocial - Initial Assess - Target Goals Target Goals: Assess presence or absence of depression. Using a valid screening tool, maximizes coping skills. Positive support system - Stages of Change Stages of Change:: Action - Psychosocial Test Tool Used:: HANDS Depression Questionnaire Self-reported stress:: PT STATES POST SURGERY STRESS Self-Efficacy Score:: 9 - Intervention PS - Interventions: Yes Attend Stress Management Classes - CR CLASS, Yes Uses Stress Management Skills - CR CLASS, No Referral to Mental Health, No Referral to [facility] Case Management, No Referral to Physician - Patient/Program Goal Preventative Medication(s):: Beta ghassan - Assistive Devices Assistive Devices:: None Fall Risk Assessed:: Yes - NONE Patient Health Questionnaire Initial Assessment 1. Little interest or pleasure in doing things: Not at all 2. Feeling down, depressed, or hopeless: Not at all 3. Trouble falling or staying asleep, or sleeping too much: Nearly every day 4. Feeling tired or having little energy: More than half the days 5. Poor appetite or overeating: Not at all 6. Feeling bad about yourself -- or that you are a failure or have let yourself or your family down: Not at all 7. Trouble concentrating on things, such as reading the newspaper or watching television: Not at all 8. Moving or speaking so slowly that other people could have noticed. Or the opposite - being so fidgety or restless that you have been moving around a lot more than usual: Not at all 9. Thoughts that you would be better off , or of hurting yourself in some way: Not at all How difficult have these problems made it for you to do your work, take care of things at home, or get along with other people?: Not difficult at all Total Score: 5 JOHANNE-Q SV Test - Statements CAD is a disease of the arteries in the heart: I Don't Know Examples of risk factors for heart disease: True Angina is chest pain or discomfort: True The benefits of resistance training include: True Eating more meat and dairy products: True Anti-platelet medications such as aspirin are important: I Don't Know The only effective way to manage stress: True An exercise warm-up slowly increases heart rate: I Don't Know Prepared, processed foods usually have high sodium: True Depression is common after a heart attack: True The statin medications lower cholesterol: I Don't Know To control blood pressure, lower the amount of sodium: True If someone gets chest discomfort during walking: False Transfats are partially hydrogenated vegetable oils: True Sleep apnea that is not treated increases the risk: I Don't Know To control cholesterol, one should become a vegetarian: False Someone knows if he/she is exercising at the right level: I Don't Know Diabetes cannot be prevented with exercise & health eating: False Stress is a large risk for heart attack: True A diet that can help lower blood pressure is rich in: True - Total Score Total Correct Responses: 12 Self-Efficacy Initial Assessment We would like to know how confident you are in doing certain activities. Please select your confidence level for:: Select your confidence level for the following using the scale 1-10 where 1 is not at all confident and 10 is totally confident. Your score is the average of all 6 responses. Fatigue: How confident are you that you can keep the fatigue caused by your disease from interfering with the things you want to do? Select Number: 5 Physical Discomfort or Pain: How confident are you that you can keep the physical discomfort or pain of your disease from interfering with the things you want to do? Select Number: 10 Emotional Distress: How confident are you that you can keep the emotional distress caused by your disease from interfering with the things you want to do? Select Number: 10 Other Symptoms or Health Problems: How confident are you that you can keep other symptoms or health problems from interfering with the things you want to do? Select Number: 10 Different Tasks and Activities: How confident are you that you can do the different tasks and activities needed to manage your health condition so as to reduce your need to see a doctor? Select Number: 10 Medication: How confident are you that you can do things other than just taking medication to reduce how much your illness affects your everyday life? Select Number: 10 Total Score:: 9 Nutrition Survey - Nutrition Survey Instructions Scoring Instructions: Scoring is as follows: Yes = 1 points. No = 0 point. Patient score that is >/=12 is considered to be at potential nutritional risk and could benefit from a referral to a registered dietitian. - Nutrition Survey Initial Have you lost >10 lbs over the past 2 months without trying?: Yes Are you following a special diet at home for diabetes, low fat, or low salt?: Yes Are you interested in meeting with a dietitian for help understanding your diet?: Yes Do you eat less than 3 meals a day?: No Do you eat fatty meats (hoffman, sausage, ribs, etc), fried foods, desserts, large amounts of salad dressings, margarine, butter, or cheese most days?: Yes Do you have food allergies? [Enter types in comment field]: No Do you eat in restaurants more than 3 times a week?: No Do you season food with salt, seasoning salt, or garlic salt?: Yes Do you used canned, boxed, frozen meals, or soups, seasoning packets?: No Total Score:: 5
--- NOTE | 2018-12-27 09:09 | CR.HP_ITS ---
CR - History & Physical - General Arrival date:: 12/27/18 Arrival time:: 08:50 Date of Referral:: 12/21/18 Date of CR Evaluation:: 12/27/18 Referring Physician: DR LEON MAC Primary Diagnosis: TRICUSPID VALVE REPAIR - History of Present Cardiac Event Onset Date: Enter Onset Date of cardiac illnesses in Comment field below Current stable Angina Pectoris:: No Acute Myocardial Infarction within 12 months:: No Coronary Artery Bypass Graft:: No Heart valve replacement or repair:: Yes - TRICUSPID VALVE REPAIR PTCA or coronary stenting:: No Heart or Heart-Lung Transplant:: No Type of Symptoms:: NONE. GOT INFECTION IN HEART Interventions with present event:: TV REPAIR Were there any complications?: NONE - Medications Home Medications: Ambulatory Orders Medication Instructions Recorded Fluoxetine [Prozac] 20 mg PO DAILY 05/23/13 Methylphenidate HCl [Methylin] 10 mg PO DAILY 05/23/13 Propranolol HCl [Inderal LA (Beta 80 mg PO BID 05/23/13 Maureen)] Ranitidine [Zantac] 150 mg PO BID 05/23/13 Risperidone [Risperidone Odt] 1 mg PO DAILY 05/23/13 Amitriptyline HCl 10 mg PO QHS 09/28/18 Cetirizine HCl [Zyrtec] 10 mg PO DAILY 09/28/18 Rizatriptan Benzoate [Rizatriptan] 10 mg PO X1 PRN 09/28/18 Insulin Aspart [Novolog Flexpen 7 units SUBCUT TIDCM 10/09/18 ([facility])] Insulin Glargine [Lantus SoloStar 18 units SQ QHS 10/09/18 Pen] - Allergies Allergies/Adverse Reactions: Allergies clindamycin Adverse Reaction (Verified 10/09/18 18:19) Unknown - Sleep Disorder Evaluation Hx of Sleep Apnea: No Do you snore loudly (louder than talking or can be heard through closed doors)?: No Do you often feel tired/ fatigued/ sleepy during daytime?: Yes - SURGERY RELATED Has anyone observed you stop breathing during sleep?: No History of Hypertension (for STOP score): No STOP Results: Negative Advanced Directives - Advanced Directives Power of Validation Analyst: Yes - CAREGIVER STATES PTS MOM HAS SOME PAPERS, ENCOURAGED TO BRING IN TO REVIEW DNR Order?:: No Past Medical History - Past Surgical History Surgical History: no surgical history Social History - Smoking History Smoking Status: Current every day smoker - STATES HE RESTARTED SMOKING LESS THAN AN PPD Years Smokin Packs Smoked per Day: 1 Hx Tobacco Use: Yes - Alcohol Use Alcohol Usage: No - Substance Abuse Hx Substance Use: No - Occupation Occupation (List type of work in comments):: Employed - [employer] Hours worked per day:: 5 - Hobbies, Recreation, Social Activities Hobbies: Other - [employer] Recreational Activities: I am able to engage in most, but not all activities Social Environment - Status Marital Status: Single - Current Living Arrangements Living Environment:: Assisted Living - [facility] HAS A ROOMATE - Safety Do you feel safe in your surroundings?: Yes - Assistance Do you need any assistance at home?: NONE Review of Systems - Review of Systems Hints: Right click = Denies (Slash). Left click = Reports (Danielson) Review of Present Symptoms: Reports: Shortness of Breath with Exertion, Operative Discomfort - ITCHING AT INCISION SITE INCISION WELL APPROXIMATED, WITHOUT REDNESS., Wound Healing, Dizziness/Lightheadedness - IF STAND UP TOO FAST, Fatigue - GENERAL POST OP FATIGUE, Appetite - Normal, Appetite - Special Diet - DIABETIC DIET, Sleep - Normal. Denies: Shortness of Breath at Rest, PVD, Angina, Heart Arrhythmia/Irregularities - Pain Is Patient Pain Free?: Yes Risk Factor Assessment - Chief Complaint Chief Complaint: CURRENT TRICUSPIC VALVE REPAIR PT WHO PRESENTS TODAY FOR CR INITIAL EVALUATION. - Vital Signs Temperature: 98.6 F Respiratory Rate: 16 Pulse Ox: 100 Blood Pressure: 94/64 Nailbeds:: PINK - Pulse Pulse Rate: 87 Pulse Rhythm: Regular - Hypertension How long have you been treated?: PT AND CAREGIVER DENIES HX OF HTN Blood Pressure Sitting - Left Arm: 94/64 - Stress Stress: Recent - SURGERY' - Diabetes Diabetic History: Type II, Insulin Dependent Nutrition Referral for Diabetes: No - Obesity Height: 6 ft Weight:: 150 lb Weight in Pounds: 150.0 lbs Weight Source: Stated by Patient Body Mass Index (BMI): 20.3 Nutritional Referral for Obesity: No - Physical Inactivity Physical Inactivity: Recreational activity - Risk Stratification Risk Guidelines: Lowest Risk: Risk Factor for Dyslipidemia, Risk Factor for Obesity, Risk Factor for Hypertension, Risk Factor for Sedentary Lifestyle, Risk Factor for Depression, Highest Risk: Risk Factor for Smoking, Risk Factor for Diabetes - For Smoking Smoking Risk Guidelines: Smoking Low Risk: None or quit greater than 6 months ago. Smoking Moderate Risk: Smoker or quit 6 months or less ago. Smoking High Risk: Smoker - For Dyslipidemia Dyslipidemia Risk Guidelines: Low Risk: Moderate Risk: High Risk: 15-25% fat 25.1-29% fat >/= 30% fat. <7% sat fat 7-9% sat fat >9% sat fat. <150 mg chol 150-299 mg chol >/= 300 mg chol. LDL <100 LDL 100-129 LDL >/= 130. Chol/HDL ratio <5.0 Chol/HDL ratio 5.0-6.0 Chol/HDL ratio >6.0. Triglycerides <100 Triglycerides 100-149 Triglycerides >/= 150 - For Diabetes Mellitus Diabetes Risk Guidelines: Diabetes Low Risk: HgA1c <6.5% and/or FBG <120. Diabetes Moderate Risk: HgA1c 6.6-7.9% and/or FBG 120-180. Diabetes High Risk: HgA1c >/= 8% and/or FBG >180 - For Obesity/Overweight Obesity/Overweight Risk Guidelines: Obesity Low Risk: BMI <25.0. Obesity Moderate Risk: BMI 25-29.9. Obesity High Risk: BMI >/= 30.0 - For Hypertension Hypertension Risk Guidelines: Hypertension Low Risk: Systolic <120 and Diastolic <80. Hypertension Moderate Risk: Systolic 120-139 and Diastolic 80-89. Hypertension High Risk: Systolic >/= 140 and Diastolic >/= 90 - For Sedentary Lifestyle Sedentary Lifestyle Risk Guidelines: Sedentary Lifestyle Low Risk: >/= 1,500 kcal/week. Sedentary Lifestyle Moderate Risk: 700-1,499 kcal/week. Sedentary Lifestyle High Risk: < 700 kcal/week - For Depression Depression Risk Guidelines: Depression Low Risk: Not clinically depressed. Depression Moderate Risk: Mildly depressed. Depression High Risk: Clinically depressed Motivation - Motivation to Participate On a scale of 1 to 10, how prepared are you to commit to attending program?: 10 What do you see as barriers to successfully being able to complete the program?: NONE What do you see as the benefits of succesfully completing the program? In other words, what do you hope to get out of participating in the program?: GET BACK TO WORK Are there issues you are dealing with that will interfere with completing the program?: NONE Do you have a spouse or signficant other, family or friends who will help support you to complete the program?: '[employer]' FROM [employer]
[2018-12-27 09:37] VITALS: BP 94/64; PULSE 87; RESP 16; TEMP 37; O2SAT 100; BMI 20.3
[2018-12-27 10:05] VITALS: BP 94/64
== END ==
PROVIDERS: Family Provider Family Medicine; PCP Family Medicine
DX: Z95.2 Presence of prosthetic heart valve (principal)

== ENCOUNTER 2019-01-11 11:30 | Outpatient (RCR) | payer MEDICARE, MEDICAID, SELFPAY ==
[2018-12-27 09:37] VITALS: BMI 20.3
--- NOTE | 2019-01-25 08:13 | CR.ITP_ITS ---
Exercise - 30-day Assessment - Visit Date of Eval: 01/25/19 Session #:: 6 - Patient last attended 01/11/2019. Patient was having syncopal episodes as reported by his caregiver, EMS was called and patient refused treatment. The caregiver and patietn were advised no exercise until he followed up with his mobile home park manager. WE have not heard back from the patient or his caregiver. - Physician Prescribed Exercise Modalities: Treadmill, Airdyne, NuStep Frequency (days/week): 3 Duration (Minutes):: 30-45 Intensity: 60-80% age predicted maximum heart rate reserve METs - Progression: 0.5-1.0 MET, RPE 11-14 WEEK: 3.5 METS Target Heart Rate:: 118-136 w/max HR 126 - Hypertension Resting Blood Pressure:: 90/50 Peak Exercise Blood Pressure:: 140/82 Medication Changes:: No - Intervention Home Exercise/Activity Goal:: Sitting Time <3 hrs/day - Education Goals:: Warm-up, RPE LESLIE Scale, S/S, Safe Exercise, Self-Monitoring - Exercise Program Goals Exercise Program Goals: Aerobic Activity >30 min Nutrition - Initial Assessment - Program Goals Nutrition Program Goals: LDL <70. Total Cholesterol <200. HDL >45. Triglycerides <150. HgbA1C <7%. BMI <25 - Diabetes Do you monitor your blood sugar at home?: Yes - ENCOURAGED TO BRING GLUCOSE MONITOR TO Nutrition - 30-Day Assessment - Program Goals Nutrition Program Goals: LDL <70. Total Cholesterol <200. HDL >45. Triglycerides <150. HgbA1C <7%. BMI <25 - Visit Date of Eval: 01/25/19 - Lipids Has the patient seen the dietitian?: No - Diabetes Diabetes:: Yes Insulin: Yes Non-Insulin Dependent?: Yes Random Blood Glucose:: 118 - 101-213 - Weight Management Weight:: 150 lb - Intervention Referral to dietitian:: Yes Referral to Diabetic Clinic:: Yes Will attend diet classes:: Yes - Education Attended class for:: Signs & symptoms of hypoglycemia, Signs & symptoms of hyperglycemia, Relate diabetes to coronary artery disease, Healthy eating Tobacco - Initial Assessment - Program Goals Tobacco Program Goals: Complete smoking cessation. Attend education classes. Improve Knowledge Test score - Learning Barriers Learning Barriers: Ready to Learn Tobacco - 30-Day Assessment - Program Goals Tobacco Program Goals: Complete smoking cessation. Attend education classes. Improve Knowledge Test score - Stage of Change Stages of Change:: Action - Learning Barriers Learning Barriers: Participates in education - Family Support Do you have family support?: Yes - Patient is in a usp and supported by caregivers. - Tobacco Use Tobacco Use: Cigarettes How many cigarettes do you smoke per day?: 10 Do you use smokeless tobacco?: Yes - vape nicotine - Intervention Smoking Cessation Referral:: Yes Individual Education/Counseling:: Yes Education Schedule Given:: Yes - Education Attended class for:: Stress Management & Relaxation, Sleep Disorders & Heart Disease Psychosocial - Initial Assess - Target Goals Target Goals: Assess presence or absence of depression. Using a valid screening tool, maximizes coping skills. Positive support system - Psychosocial Test Tool Used:: HANDS Depression Questionnaire - Assistive Devices Fall Risk Assessed:: Yes - NONE Psychosocial - 30-Day Assess - Target Goals Target Goals: Assess presence or absence of depression. Using a valid screening tool, maximizes coping skills. Positive support system - Psychosocial Test Tool Used:: HANDS Depression Questionnaire - Intervention PS - Interventions: Yes Attend Stress Management Classes, No Referral to Mental Health, No Referral to [facility] Case Management, No Referral to Physician, No Uses Stress Management Skills - Education Attended classes for:: Coping techniques, Signs & symptoms of depression, Stress management, Relaxation techniques - Patient/Program Goal Preventative Medication(s):: Aspirin, TONYA inhibitor, Clopidogrel, Beta ghassan, Statin/lipid - Assistive Devices Assistive Devices:: None Fall Risk Assessed:: Yes Patient Health Questionnaire 30-Day Re-eval Assessment 1. Little interest or pleasure in doing things: Not at all 2. Feeling down, depressed, or hopeless: Not at all 3. Trouble falling or staying asleep, or sleeping too much: Nearly every day 4. Feeling tired or having little energy: More than half the days 5. Poor appetite or overeating: Not at all 6. Feeling bad about yourself -- or that you are a failure or have let yourself or your family down: Not at all 7. Trouble concentrating on things, such as reading the newspaper or watching television: Not at all 8. Moving or speaking so slowly that other people could have noticed. Or the opposite - being so fidgety or restless that you have been moving around a lot more than usual: Not at all 9. Thoughts that you would be better off , or of hurting yourself in some way: Not at all How difficult have these problems made it for you to do your work, take care of things at home, or get along with other people?: Not difficult at all Total Score: 5 Self-Efficacy 30-Day Re-eval Assessment We would like to know how confident you are in doing certain activities. Please select your confidence level for:: Select your confidence level for the following using the scale 1-10 where 1 is not at all confident and 10 is totally confident. Your score is the average of all 6 responses. Fatigue: How confident are you that you can keep the fatigue caused by your disease from interfering with the things you want to do? Select Number: 5 Physical Discomfort or Pain: How confident are you that you can keep the physical discomfort or pain of your disease from interfering with the things you want to do? Select Number: 9 Emotional Distress: How confident are you that you can keep the emotional distress caused by your disease from interfering with the things you want to do? Select Number: 9 Other Symptoms or Health Problems: How confident are you that you can keep other symptoms or health problems from interfering with the things you want to do? Select Number: 8 Different Tasks and Activities: How confident are you that you can do the different tasks and activities needed to manage your health condition so as to reduce your need to see a doctor? Select Number: 10 Medication: How confident are you that you can do things other than just taking medication to reduce how much your illness affects your everyday life? Select Number: 10 Total Score:: 8
[2019-01-25 08:20] VITALS: BP 140/82; BP 90/50
== END 2019-01-24 23:59 ==
LOC: CR 11:30
PROVIDERS: Family Provider Family Medicine; PCP Family Medicine
DX: Z98.890 Other specified postprocedural states (principal)
CPT/HCPCS: 93798

== ENCOUNTER 2019-01-14 14:52 | Emergency (ER) | payer MEDICARE, MEDICAID, SELFPAY ==
[2018-12-27 09:37] VITALS: BMI 20.3
[2019-01-14 14:53] VITALS: BP 126/71; PULSE 85; RESP 16; TEMP 36.6; O2SAT 100; BMI 20.4
--- NOTE | 2019-01-14 15:10 | RAD_ITS ---
STUDY: X-RAY CHEST REASON FOR EXAM: Male, 38 years old. Syncopal episode. TECHNIQUE: Single AP portable view of the chest. COMPARISON: Comparison is made with prior examination dated October 09, 2018. FINDINGS: Stable mild increased markings at the lung bases. There is no demonstrated pleural abnormality. Sternal cerclage wires are present from a prior sternotomy. Normal mediastinum and chance. Normal visualized pulmonary arteries. Normal visualized aortic arch and descending thoracic aorta. Normal visualized thoracic spine. Normal visualized ribs, clavicles, and shoulders. There is no demonstrated abnormality of the visualized soft tissue structures of the upper abdomen. RAD/Chest 1 View (Portable) IMPRESSION: The patient underwent midline sternotomy since prior study. Mild stable increased markings at the lung bases suggestive of atelectasis. Electronically Signed: Hussein Loera, at 15:33 EDT , Service support ,
--- NOTE | 2019-01-14 15:10 | EKG12_ITS ---
Test Reason : SYNCOPE Blood Pressure : / mmHG Vent. Rate : 083 BPM Atrial Rate : 083 BPM P-R Int : 148 ms QRS Dur : 074 ms QT Int : 338 ms P-R-T Axes : 038 006 028 degrees QTc Int : 397 ms Normal sinus rhythm Possible Left atrial enlargement Possible Inferior infarct , age undetermined Abnormal ECG Confirmed by SKYLAR ESPINOZA, BLANCA ([id number]), primer expeditor and drier SAVANNA MCKENZIE ([id number]) on 01/18/2019 10:39:00 AM Referred By: LEON MAC Confirmed By:BLANCA CHENG MD
--- NOTE | 2019-01-14 15:11 | ED.VIS.GEN ---
History of Present Illness Chief Complaint: Syncope Informant: Patient, - - detention staff member Onset: Days Narrative: Patient presents the near syncopal episode that occurred 2 days ago. He states he is been feeling dizzy when he stands up suddenly. This is what happened 2 days ago as well. He states he became so dizzy he fell to the floor. He does not believe he completely passed out. He states he was alert and remembers all the events. He does not room or his heart beating funny. Patient had surgery on his tricuspid valve 2 months ago at [facility]. He is currently in cardiac rehab. detention staff members apparent I contacted the patient's clinical medical transcriptionist, Dr. Samson who advised to have him brought to the emergency room. Staff member does state that he was recently started on metoprolol and his symptoms seem to get worse after starting this medication. Patient tells me a nurse has been visiting and checking his vital signs. His blood pressure has been good. They also check orthostatic vital signs which were normal. Past Medical History - Allergies and Home Meds Allergies/Adverse Reactions: Allergies clindamycin Adverse Reaction (Verified 01/14/19 14:52) Unknown Primary Care Physician: Fitz Gómez MD [Primary Care Provider] - Prior records reviewed: Yes Past Medical History: - - Reviewed Surgical History: - - Bicuspid valve repair Lives: - - detention Smoking Status: Current every day smoker - STATES HE RESTARTED SMOKING LESS THAN AN PPD - Family History Paternal Family History: Reports: Unknown - Patient is adopted. Maternal Family History: Reports: - - unknown, patient is adopted Review of Systems General: Denies: Chills, Fever Eyes: Denies: Visual changes - bilaterally ENT: Denies: Bilateral ear pain Cardiovascular: Denies: Chest pain, Palpitations, Heart racing Respiratory: Denies: Dyspnea, Cough Gastrointestinal: Denies: Abdominal pain, Nausea, Vomiting, Diarrhea Genitourinary: Denies: Dysuria Musculoskeletal: Denies: Back pain, Extremity Pain Neurological: Denies: Headache, Weakness Hematologic: Denies: Easy bruising Allergy: Denies: Uticaria Physical Exam Vital Signs/Narrative: Vital Signs Temp Pulse Resp BP Pulse Ox 01/14/19 14:53 98 F 85 16 126/71 H 100 Inital Vital Signs reviewed: Yes General: Well nourished, Well developed Head: Normocephalic, Atraumatic ENT: Moist mucous membranes Cardiovascular: Regular rate, Regular rhythm Respiratory: No distress, CTA bilaterally Abdomen: Soft, Nontender, Nondistended Extremities: Nontender Skin: Normal color, No rash Neurological: Alert, Oriented x3, Normal Strength, Normal Sensation Psychological: Normal affect Diagnostic/Tx/Re-eval Impressions Chest X-Ray 01/14/19 15:10 IMPRESSION: The patient underwent midline sternotomy since prior study. Mild stable increased markings at the lung bases suggestive of atelectasis. Electronically Signed: Hussein Loera, at 15:33 EDT , Service support , 01/14/19 15:10 Chest 1 View (Portable) [RAD] Stat Laboratory Results 01/14/19 01/14/19 15:28 15:28 WBC 6.3 RBC 4.16 L Hgb 11.8 L Hct 35.7 L MCV 85.8 MCH 28.4 MCHC 33.1 RDW Std Deviation 42.5 RDW Coeff of Fely 13.6 Plt Count TNP MPV 10.4 Immature Gran % (Auto) 0.500 Neut % (Auto) 65.9 Lymph % (Auto) 21.8 [place] % (Auto) 7.1 Eos % (Auto) 4.1 Baso % (Auto) 0.6 Absolute Neuts (auto) 4.2 Absolute Lymphs (auto) 1.38 Nucleated RBC % 0 Platelet Estimate ADEQUATE Sodium 140 Potassium 4.4 Chloride 109 H Carbon Dioxide 23.0 Anion Gap 8 BUN 37 H Creatinine 1.75 H Estim Creat Clear Calc 55.21 Est GFR (MDRD) Af Amer 56 L Est GFR (MDRD) Non-Af 46 L BUN/Creatinine Ratio 21.1 H Glucose 108 H Calcium 9.0 Total Bilirubin 0.40 Direct Bilirubin 0.11 AST 186 H ALT 362 H Alkaline Phosphatase 666 H Total Protein 6.7 Albumin 2.9 L Globulin 3.8 - EKG Initial EKG Interpretation: Sinus Rhythm - Sinus at 83 with no acute ischemia. - Medical Decision Making Test results are discussed with the patient's clinical medical transcriptionist, Dr. Samson at [facility]. He asked that we give the patient a liter of fluids for hydration. We will cut his metoprolol back to 25 mg once a day. If his systolic blood pressures less than 100 they are to hold his medication. Patient is to follow-up with his desk officer. Patient states he is an appointment with him in 2 days. I will print out today's labs for him to take along to that appointment. ED Disposition - Plan for ED Patient: Disposition: Home or Assisted Living Diagnosis: Near syncope Instructions: HYPOTENSION, Orthostatic, NEAR SYNCOPE, Unknown Referrals: Fitz Gómez MD [Primary Care Provider] - Additional Instructions: Decrease your Metoprolol to 25mg once a day. If your systolic blood pressure is <100, hold the medication and do not take it. Increase fluids. Follow-up with your liver specialist on Monday as discussed. Your labs have been printed for you to take along to that appointment.
[2019-01-14 15:45] LABS: Absolute Lymphocyte Count 1.38 X10^3/uL (0.83-4.51); Absolute Neutrophil Count 4.2 X10^3/uL (2.0-7.7); Basophil# 0.04 X10^3/uL; Basophil% 0.6 % (0-1); Eosinophil# 0.26 X10^3/uL; Eosinophils% 4.1 % (0-5); Hematocrit 35.7 % (40-54); Hemoglobin 11.8 g/dL (13.0-16.5); Lymphocyte # 1.38 X10^3/ul (4.0); Lymphocyte % 21.8 % (19-41); Mean Corp Hgb Conc 33.1 g/dL (32-36); Mean Corpuscular Hgb 28.4 pg (27.0-32.0); Mean Corpuscular Volume 85.8 fL (80-94); Mean Platelet Vol. 10.4 fl (6.2-12.0); Monocyte# 0.45 X10^3/uL; Monocyte% 7.1 % (0-10); NRBC Flagged by Analyzer 0 % (0-5); Neutrophil # 4.17 X10^3/uL (2.7-7.7); Neutrophil % 65.9 % (47-70); POSITIVE COUNT YES; RBC Distribution Width CV 13.6 % (11.6-14.6); RBC Distribution Width SD 42.5 fl (35.1-43.9); Red Blood Count 4.16 M/mm3 (4.6-6.2); White Blood Count 6.3 K/mm3 (4.4-11.0)
[2019-01-14 15:47] LABS: Differential Indicated SCAN CRITERIA MET
[2019-01-14] MEDS: 0.9% Normal Saline 1,000 ML 150 ML IV (15:50)
[2019-01-14 16:01] LABS: AST(SGOT) 186 U/L (15-37); Alanine Aminotransfer ALT/SGPT 362 U/L (16-61); Albumin, Serum 2.9 g/dL (3.2-5.0); Alkaline Phosphatase 666 U/L (45-117); Anion Gap 8 (5-15); BUN 37 mg/dL (7-18); BUN/Creat Ratio 21.1 RATIO (10-20); Bilirubin, Direct 0.11 mg/dL (0.00-0.30); Chloride 109 mmol/L (98-107); Creatinine, Serum 1.75 mg/dL (0.70-1.30); EST Glomerular Filtration Rate 46 mL/min (>60); Est Glom Filt Rate - Afr Amer 56 mL/min (>60); Estimated Creatinine Clearance 55.21 ml/min; Globulin 3.8 g/dL (2.2-4.2); Glucose 108 mg/dL (74-106); Potassium 4.4 mmol/L (3.5-5.1); Protein, Total 6.7 g/dL (6.4-8.2); Sodium Level 140 mmol/L (136-145)
[2019-01-14 16:15] LABS: Platelet Estimate ADEQUATE (ADEQ)
[2019-01-14] MEDS: 0.9% Normal Saline 1,000 ML 999 ML IV (16:27)
[2019-01-14 16:28] VITALS: BP 132/80; PULSE 72; RESP 18; O2SAT 100
[2019-01-14 16:52] VITALS: BP 122/76; PULSE 72; RESP 22; O2SAT 100
[2019-01-14 16:52] LABS: Bacteria 0 SEEN /hpf (None Seen); Mucous, Urine 0 SEEN /hpf (<or=2+); Red Blood Cells-Urine 0 SEEN /hpf (0-5); Squamous Epithelial Cells - UA 0 SEEN /hpf (0-5); White Blood Cells 0 SEEN /hpf (0-5)
[2019-01-14 16:58] LABS: Color, Urine Yellow (Yellow); Glucose, Dipstick Normal (Normal); Ketone-Dipstick Negative (Negative); Leukocyte Esterase-Dipstick Negative /ul (Negative); Nitrite-Dipstick Negative (Negative); Occult Blood-Urine Negative /ul (Negative); Protein-Dipstick Negative (Negative); Specific Gravity, Urine 1.015 (1.002-1.030); Urine Bilirubin Dipstick Negative (Negative); Urine Clarity Clear (Clear); Urine Urobilinogen Normal (Normal)
[2019-01-14 17:07] LABS: Amphetamine Urine VISTA NEGATIVE (<1000 ng/mL); Barbiturate Urine VISTA NEGATIVE (< 200 ng/mL); Benzodiazepine Urine VISTA NEGATIVE (< 200 ng/mL); Cocaine Urine VISTA NEGATIVE (< 300 ng/mL); Ecstacy Urine VISTA NEGATIVE (< 500 ng/mL); Methadone Urine VISTA NEGATIVE (< 300 ng/mL); PCP Urine VISTA NEGATIVE (< 25 ng/mL); THC Urine VISTA NEGATIVE (< 50 ng/mL); Vista UDS pH Range 5
== END 2019-01-14 18:09 | disposition home or self-care (01) ==
PROVIDERS: Emergency Provider Emergency Medicine; Family Provider Family Medicine; PCP Family Medicine
DX: R55 Syncope and collapse (principal); I95.9 Hypotension, unspecified; F17.210 Nicotine dependence, cigarettes, uncomplicated; Z95.2 Presence of prosthetic heart valve; Z79.899 Other long term (current) drug therapy
CPT/HCPCS: 71045; 80048; 80076; 80307; 81001; 85025; 93005; 96360; 96361; 99285; A4216

== ENCOUNTER 2019-02-18 11:30 | Outpatient (RCR) | payer MEDICARE, MEDICAID, SELFPAY | END 2019-02-23 23:59 | LOC: CR 11:30 | PROVIDERS: Family Provider Family Medicine; PCP Family Medicine | DX: Z98.890 Other specified postprocedural states (principal) | CPT/HCPCS: 93798 ==

== ENCOUNTER 2019-03-18 11:30 | Outpatient (RCR) | payer MEDICARE, MEDICAID, SELFPAY ==
--- NOTE | 2019-02-27 06:47 | PCM.CR.ITP ---
Exercise - 60-Day Assessment - Visit Date of Eval: 02/27/19 Session #:: 15 - started CR on 12/31/2018, patient has missed 9 scheduled sessions for various reasons. - Stages of Change Stages of Change:: Contemplate - Patient does not demonstrate a strong willingness to participate. - Physician Prescribed Exercise Modalities: Treadmill, Airdyne, NuStep Frequency (days/week): 3 - varies with attendance Duration (Minutes):: 20-30 Intensity: 60-80% age predicted maximum heart rate reserve METs - Progression: 0.5-1.0 MET, RPE 11-14 WEEK: 4 increase from 2.5 METs Target Heart Rate:: 118-136 max HR 126 - Hypertension Resting Blood Pressure:: 86/60 Peak Exercise Blood Pressure:: 122/74 Medication Changes:: Yes - 01/30/2019 metoprolol succinate 25mg BID. - Intervention Home Exercise/Activity Goal:: Sitting Time <3 hrs/day - Education Goals:: Warm-up, RPE LESLIE Scale, S/S, Safe Exercise, Self-Monitoring - Exercise Program Goals Exercise Program Goals: Aerobic Activity >30 min Nutrition - Initial Assessment - Program Goals Nutrition Program Goals: LDL <70. Total Cholesterol <200. HDL >45. Triglycerides <150. HgbA1C <7%. BMI <25 - Diabetes Do you monitor your blood sugar at home?: Yes - ENCOURAGED TO BRING GLUCOSE MONITOR TO CR Nutrition - 60-Day Assessment - Program Goals Nutrition Program Goals: LDL <70. Total Cholesterol <200. HDL >45. Triglycerides <150. HgbA1C <7%. BMI <25 - Visit Date of Eval: 02/27/19 - Stages of Change Stages of Change:: Action - Lipids Has the patient seen the dietitian?: No - Diabetes Diabetes:: Yes Insulin: Yes Non-Insulin Dependent?: Yes Random Blood Glucose:: 117 - Range 100-207 - Weight Management Weight:: 154 lb - increase from 149 - Intervention Referral to dietitian:: No Referral to Diabetic Clinic:: No Will attend diet classes:: Yes - Education Attended class for:: Signs & symptoms of hypoglycemia, Signs & symptoms of hyperglycemia, Relate diabetes to coronary artery disease, Healthy eating Tobacco - Initial Assessment - Program Goals Tobacco Program Goals: Complete smoking cessation. Attend education classes. Improve Knowledge Test score - Learning Barriers Learning Barriers: Ready to Learn Tobacco - 60-Day Assessment - Program Goals Tobacco Program Goals: Complete smoking cessation. Attend education classes. Improve Knowledge Test score - Stage of Change Stages of Change:: Action - Learning Barriers Learning Barriers: Participates in education - Family Support Do you have family support?: Yes - Tobacco Use Tobacco Use: Cigarettes - patient still smoking and using vape devices for nicotine dependence. Has not followed up with Smoking Cessation although he states he wants to quit smoking. Do you use smokeless tobacco?: Yes - Nicotine Vape Device - Intervention Smoking Cessation Referral:: Yes Individual Education/Counseling:: Yes Education Schedule Given:: Yes - Education Attended class for:: Treating Heart Disease, How The Heart Works, What it means to have Heart Disease, How Coronary Artery Disease is Diagnosed, Nutrition, Emotions & Heart Disease, Stress Management & Relaxation, Sleep Disorders & Heart Disease Psychosocial - Initial Assess - Target Goals Target Goals: Assess presence or absence of depression. Using a valid screening tool, maximizes coping skills. Positive support system - Psychosocial Test Tool Used:: HANDS Depression Questionnaire - Assistive Devices Fall Risk Assessed:: Yes - NONE Psychosocial - 60-Day Assess - Target Goals Target Goals: Assess presence or absence of depression. Using a valid screening tool, maximizes coping skills. Positive support system - Stages of Change Stages of Change:: Contemplate, Action - Psychosocial Test Tool Used:: HANDS Depression Questionnaire - Intervention PS - Interventions: Yes Attend Stress Management Classes, No Referral to Mental Health, No Referral to [facility] Case Management, No Referral to Physician, No Uses Stress Management Skills - Education Attended classes for:: Coping techniques, Signs & symptoms of depression, Stress management, Relaxation techniques - Patient/Program Goal Preventative Medication(s):: Aspirin, TONYA inhibitor, Clopidogrel, Beta ghassan, Statin/lipid - Patient takes medications under the supervision of care provider. - Assistive Devices Assistive Devices:: None Fall Risk Assessed:: Yes Patient Health Questionnaire 60-Day Re-eval Assessment 1. Little interest or pleasure in doing things: Not at all 2. Feeling down, depressed, or hopeless: Not at all 3. Trouble falling or staying asleep, or sleeping too much: Nearly every day 4. Feeling tired or having little energy: More than half the days 5. Poor appetite or overeating: Not at all 6. Feeling bad about yourself -- or that you are a failure or have let yourself or your family down: Not at all 7. Trouble concentrating on things, such as reading the newspaper or watching television: Several days 8. Moving or speaking so slowly that other people could have noticed. Or the opposite - being so fidgety or restless that you have been moving around a lot more than usual: Not at all 9. Thoughts that you would be better off , or of hurting yourself in some way: Not at all Total Score: 6 Self-Efficacy 60-Day Re-eval Assessment We would like to know how confident you are in doing certain activities. Please select your confidence level for:: Select your confidence level for the following using the scale 1-10 where 1 is not at all confident and 10 is totally confident. Your score is the average of all 6 responses. Fatigue: How confident are you that you can keep the fatigue caused by your disease from interfering with the things you want to do? Select Number: 6 Physical Discomfort or Pain: How confident are you that you can keep the physical discomfort or pain of your disease from interfering with the things you want to do? Select Number: 9 Emotional Distress: How confident are you that you can keep the emotional distress caused by your disease from interfering with the things you want to do? Select Number: 9 Other Symptoms or Health Problems: How confident are you that you can keep other symptoms or health problems from interfering with the things you want to do? Select Number: 8 Different Tasks and Activities: How confident are you that you can do the different tasks and activities needed to manage your health condition so as to reduce your need to see a doctor? Select Number: 10 Medication: How confident are you that you can do things other than just taking medication to reduce how much your illness affects your everyday life? Select Number: 10 Total Score:: 8
[2019-02-27 06:56] VITALS: BP 122/74; BP 86/60
== END 2019-03-26 23:59 ==
LOC: CR 11:30
PROVIDERS: Family Provider Family Medicine; PCP Family Medicine
DX: Z98.890 Other specified postprocedural states (principal)
CPT/HCPCS: 93798

== ENCOUNTER 2019-04-11 06:54 | Emergency (ER) | payer MEDICARE, MEDICAID, SELFPAY ==
[2019-04-11 06:55] VITALS: BP 142/95; PULSE 71; RESP 18; TEMP 36.7; O2SAT 98; BMI 23.0
--- NOTE | 2019-04-11 07:17 | ED.VIS.GEN ---
History of Present Illness Chief Complaint: Laceration Informant: Patient Onset: Today Context: Sudden Onset Timing: Continuous Quality: Laceration plantar surface right foot Location: Distal medial right foot plantar surface Current Severity: Mild Maximum Severity: Moderate Worsened by: Stepped on broken glass Relieved by: Nothing Associated Symptoms: Nothing Narrative: Patient is a 38-year-old male presents with laceration plantar surface of the right foot. Patient states he placed a jar in his trash can. He stepped on the trash to compacted. Glass cut the bottom of his foot. Immunizations uncertain. He denies paresthesia, anesthesia motors. He is on no anticoagulant. Prior similar symptoms: No Recent Illness/Hospitalization: No - Past Medical History (1) Endocarditis due to methicillin susceptible Staphylococcus aureus (MSSA) Status: Acute (2) Diabetes Status: Chronic Past Medical History - Allergies and Home Meds Allergies/Adverse Reactions: Allergies clindamycin Adverse Reaction (Verified 04/11/19 06:55) Unknown Primary Care Physician: Fitz Gómez MD [Primary Care Provider] - Prior records reviewed: Yes Surgical History: - - Bicuspid valve repair Lives: - - assisted Smoking Status: Current every day smoker Alcohol: None Drugs: None - Family History Paternal Family History: Reports: Unknown - Patient is adopted. Maternal Family History: Reports: - - unknown, patient is adopted Review of Systems General: Denies: Chills, Fever Musculoskeletal: Reports: Extremity Pain. Denies: Myalgias, Arthralgias, Neck pain, Back pain, Swelling Skin: Reports: Wounds. Denies: Rash Neurological: Denies: Weakness, Parasthesia, Numbness Hematologic: Denies: Easy bruising, Easy bleeding Physical Exam Vital Signs/Narrative: Vital Signs Temp Pulse Resp BP Pulse Ox 04/11/19 06:55 98.0 F 71 18 142/95 H 98 Inital Vital Signs reviewed: Yes General: Well nourished, Well developed, No Acute Distress Head: Normocephalic, Atraumatic Eyes: Perrl, EOMI Cardiovascular: Regular rate Respiratory: No distress Extremities: No edema, Tenderness, - - DP and PT pulse are palpable. Negative for: Nontender Skin: Normal color, No rash, Trauma - 3.5 cm laceration plantar surface distal medial right foot Neurological: Alert, Oriented x3, Cranial nerves II-XII grossly intact, Normal Strength, Normal Sensation Psychological: Normal affect, Normal Mood Diagnostic/Tx/Re-eval - Medical Decision Making She has a laceration which will require repair. Since he did not break the glass by stepping x-ray was not obtained. The laceration was explored. There is no foreign body noted. Please read procedure note. Procedures - Lacerations No standard instances Length: 1.38 in Depth: Sub Q Shape: Linear Prep: Josr Laceration repair: Irrigated, Lidocaine Irrigated (ml): 175 Number of Sutures/Scooter: 6 Suture Information: Ethilon, Simple, 5-0 ED Disposition - Plan for ED Patient: Disposition: Home or Assisted Living Diagnosis: Laceration of right foot excluding toes without complication Instructions: LACERATION, Foot Referrals: Fitz Gómez MD [Primary Care Provider] - 7 Days for suture removal Additional Instructions: Clean wound with peroxide on a Q-tip 3 times a day then apply bacitracin ointment. Keep wound clean and dry
[2019-04-11] MEDS: Diphth,Pertuss(Acell),Tet Vac 0.5 ML Vial IM (07:33)
== END 2019-04-11 07:47 | disposition home or self-care (01) ==
LOC: ED 07:28
PROVIDERS: Emergency Provider Emergency Medicine; PCP Family Medicine; Referring Provider Family Medicine
DX: S91.311A Laceration without foreign body, right foot, initial encounter (principal); W25.XXXA Contact with sharp glass, initial encounter; Y93.9 Activity, unspecified; Y92.9 Unspecified place or not applicable; E11.9 Type 2 diabetes mellitus without complications; Z79.4 Long term (current) use of insulin; F17.200 Nicotine dependence, unspecified, uncomplicated
CPT/HCPCS: 12002; 90471; 90715; 99284

== ENCOUNTER 2019-10-04 16:47 | Emergency (ER) | payer MEDICARE, MEDICAID, SELFPAY ==
[2019-10-04 16:48] VITALS: BP 159/102; PULSE 69; RESP 18; TEMP 36.4; O2SAT 99; BMI 21.7
--- NOTE | 2019-10-04 17:11 | ED.DCSUM_ITS ---
History of Present Illness Chief Complaint: Headache Informant: Patient Onset: Yesterday Context: Gradual Timing: Waxes and wanes Quality: Similar Prior Headaches - initially, but now worse than usual Location: bifrontal Current Severity: Moderate Maximum Severity: Moderate Worsened by: light Relieved by: nothing; tried a dose of his triptan today but it did not help Associated Symptoms: Nausea, Vomiting, Blurred Vision, Photophobia. Negative for: Fever, Sore Throat, Sinus Pressure, Numbness, Tingling, Visual Changes, Visual Loss Injury: - - no injury/fall/trauma - Past Medical History (1) Endocarditis due to methicillin susceptible Staphylococcus aureus (MSSA) Status: Resolved (2) Hyperbilirubinemia Status: Chronic (3) Diabetes Status: Chronic Past Medical History - Allergies and Home Meds Allergies/Adverse Reactions: Allergies clindamycin Adverse Reaction (Verified 10/04/19 16:48) Unknown Primary Care Physician: Fitz Gómez MD [Primary Care Provider] - Surgical History: - - Bicuspid valve repair Lives: - - [facility] Smoking Status: Current every day smoker - Family History Paternal Family History: Reports: Unknown - Patient is adopted. Maternal Family History: Reports: - - unknown, patient is adopted Review of Systems General: Denies: Chills, Fever, Sweats Eyes: Reports: Blurred Vision - bilaterally, - - Photophobia. Denies: Diplopia ENT: Denies: Bilateral ear pain, Rhinorrhea, Sore throat Cardiovascular: Denies: Chest pain, Palpitations Respiratory: Denies: Dyspnea, Cough, Dyspnea on exertion Gastrointestinal: Reports: Nausea, Vomiting. Denies: Abdominal pain, Diarrhea, Melena, Hematochezia Genitourinary: Denies: Dysuria, Hematuria, Frequency Musculoskeletal: Denies: Neck pain, Back pain, Extremity Pain Skin: Denies: Rash, Wounds Neurological: Reports: Headache. Denies: Weakness, Numbness Physical Exam Vital Signs/Narrative: Vital Signs Temp Pulse Resp BP Pulse Ox 10/04/19 16:48 97.5 F L 69 18 159/102 H 99 Inital Vital Signs reviewed: Yes General: Well nourished, Well developed, - - Well-appearing, no distress Head: NC, AT Eyes: Perrl, EOMI ENT: Moist mucous membranes, No rhinorrhea Neck: Supple, No Lymphadenopathy, Nontender, No Meningismus Respiratory: No distress Skin: Normal color, No rash, No Trauma Neuro: Alert, Oriented x3, Cranial nerves II-XII grossly intact, Normal Strength, Normal Sensation, Normal Gait Psychological: Normal affect, Normal Mood Diagnostic/Tx/Re-eval - Medical Decision Making Patient was treated with Toradol and Reglan IM, and on reevaluation he feels much better and his headache is gone. I feel this was likely a migraine, it likely did not respond to the triptan that he took because he took it a day after the headache started and that is not uncommon. I do not feel he needs imaging today. He is comfortable going home. ED Disposition - Plan for ED Patient: Disposition: Home or Assisted Living Diagnosis: Migraine headache Instructions: ED, Migraine (Classical) Referrals: Fitz Gómez MD [Primary Care Provider] - As Needed
[2019-10-04] MEDS: Metoclopramide 10 MG/2 ML Vial IM (17:24)
[2019-10-04] MEDS: Ketorolac 60 MG/2 ML Vial IM (17:24)
== END 2019-10-04 18:54 | disposition home or self-care (01) ==
PROVIDERS: Emergency Provider Emergency Medicine; PCP Family Medicine
DX: G43.909 Migraine, unspecified, not intractable, without status migrainosus (principal); E11.9 Type 2 diabetes mellitus without complications; F17.200 Nicotine dependence, unspecified, uncomplicated
CPT/HCPCS: 96372; 99283

== ENCOUNTER 2020-07-06 18:32 | Emergency (ER) | payer MEDICARE, MEDICAID, SELFPAY ==
[2020-07-06 18:34] VITALS: BP 139/79; PULSE 94; RESP 17; TEMP 36.3; O2SAT 98; BMI 23.8
--- NOTE | 2020-07-06 22:58 | ED.DEP ---
ED Disposition - Plan for ED Patient: Instructions: ED Laceration, Hand: All Closures Referrals: Fitz Gómez MD [Primary Care Provider] -
--- NOTE | 2020-07-06 23:02 | ED.VISSUMM ---
- ER Visit Summary Date of Service: 07/06/20 Chief Complaint: Left thumb laceration History of Present Illness: The patient is a 40 M presenting with laceration to his left thumb. This occurred today. He was using a knife to cut a zip tie and slipped and cut his left thumb. He is right-handed. This was not work-related. His tetanus is up-to-date. No other injuries. Physical Examination: Vitals are stable. Patient is afebrile. Alert no acute distress. HEENT exam is unremarkable. Lungs are clear and equal bilaterally. Heart is regular rate and rhythm. Extremities. 2.5 cm left thumb laceration to finger pad. Tendon function is normal. Cap refill normal. Skin is warm and dry. No focal neurologic deficit. Remainder of exam is unremarkable. Emergency Department Course and Treatment: Digital block was performed. Wound was copiously irrigated. 5, 5-0 simple sutures were placed. Patient tolerated this well. Advised wound care instructions. Disposition: Discharge home Impression: Left thumb laceration, laceration repair This note was generated with [employer] dictation software. It may contain incorrect words, spelling, and punctuation that were not noted in review of the chart prior to signing ED Disposition - Plan for ED Patient: Instructions: ED Laceration, Hand: All Closures Referrals: Fitz Gómez MD [Primary Care Provider] -
[2020-07-06] MEDS: Lidocaine 1% (20 ml mdv) 20 ML Vial INFILT (23:08)
[2020-07-06 23:09] VITALS: RESP 16
== END 2020-07-06 23:13 | disposition home or self-care (01) ==
PROVIDERS: Emergency Provider Emergency Medicine; PCP Family Medicine
DX: S61.012A Laceration without foreign body of left thumb without damage to nail, initial encounter (principal); W26.0XXA Contact with knife, initial encounter
CPT/HCPCS: 12011; 99283

== ENCOUNTER 2021-03-01 21:26 | Emergency (ER) | payer MEDICARE, MEDICAID, SELFPAY ==
[2021-03-01 21:28] VITALS: BP 143/96; PULSE 84; RESP 15; TEMP 36.2; O2SAT 97; BMI 24.1
[2021-03-01 21:29] VITALS: BP 143/96; PULSE 84; RESP 15; TEMP 36.2; O2SAT 97
[2021-03-01] MEDS: Ondansetron ODT 4 MG Tablet PO (21:33)
--- NOTE | 2021-03-01 23:36 | EX.ED.VIS.HA ---
HPI History of Present Illness Chief Complaint: Nausea/Vomiting Detail of Chief Complaint: Migraine headache. Informant: patient Onset/Context/Timing Onset: Today Context: Gradual Timing: Continuous Current Severity: Mild Maximum Severity: Mild Associated Symptoms/Injury Associated Symptoms: Positive for Nausea, Vomiting and Photophobia; Negative for Fever, Sore Throat, Sinus Pressure, Numbness, Tingling, Preceding Aura, Visual Changes, Blurred Vision and Visual Loss Injury - ARZATE: Negative for Direct Trauma, Fall and Assault Narrative Narrative: 40-year-old male history of diabetes, liver disease being worked up. Chronic kidney disease. Migraine headaches. Prior heart surgery for valve repair. He is on no blood thinners. Patient states he had a liver biopsy done in a clean clinic seem to go well. Later today when he got home he had gradual onset of a diffuse headache typical for one of his migraines. He is on no blood thinners. He denies any fever. Has had no head trauma. He has since developed nausea vomiting. He denies any abdominal pain. No fever or chills. No dysuria. Prior similar symptoms: Yes Recent Illness/Hospitalization: No PFSH PFSH Home Medications fluoxetine 20 mg PO DAILY 05/23/13 [History Last Taken Unknown] methylphenidate HCl [Methylin] 20 mg PO DAILY 05/23/13 [History Last Taken Unknown] risperidone 1 mg PO DAILY 05/23/13 [History Last Taken Unknown] Potassium Chloride 20 meq PO BID 01/14/19 [History Last Taken Unknown] cholestyramine-aspartame 4 gm PO TID 01/14/19 [History Last Taken Unknown] glucose 4 gm PO PRN PRN 01/14/19 [History Last Taken Unknown] hydroxyzine HCl 25 mg PO Q8H PRN 01/14/19 [History Last Taken Unknown] insulin glargine 17 unit SQ DAILY 01/14/19 [History Last Taken Unknown] metoprolol succinate 1.5 tab PO BID 01/14/19 [History Last Taken Unknown] multivitamin 1 tab PO DAILY 01/14/19 [History Last Taken Unknown] nicotine (polacrilex) 2 mg BC Q4H PRN 01/14/19 [History Last Taken Unknown] Allergy/AdvReac Type Severity Reaction Status Date / Time clindamycin AdvReac Unknown Verified 03/01/21 21:30 Social History Smoking Status: Current every day smoker tobacco type: cigarettes ROS ROS ED ROS Narrative Headache. Nausea and vomiting. Review of Systems ROS Unobtainable: Denies due to encephalopathy Constitutional Constitutional ED: Denies chills or fever(s) Eyes Eyes: Denies change in vision ENT ENT ED: Denies ear pain or rhinorrhea Cardiovascular Cardiovascular: Denies chest pain Respiratory/Chest Respiratory/Chest: Denies cough or dyspnea Gastrointestinal Gastrointestinal: Reports nausea and vomiting; Denies abdominal pain or diarrhea Genitourinary Genitourinary ED: Denies dysuria Musculoskeletal Musculoskeletal: Denies myalgias Integumentary Denies rash Neurologic Neurologic: Reports headache(s) Psychiatric Psychiatric: Denies depression Endocrine Endocrinology: Denies polyuria Hematologic/Lymphatic Hematologic/Lymphatic: Denies easy bruising Allergic/Immunologic Allergic/Immunologic ED: Denies urticaria EXAM Physical Exam Narrative Exam Narrative: 4-year-old male no acute distress vital signs stable afebrile. H EENT exam unremarkable atraumatic. Pupils round reactive light. Neck nontender no meningismus of infection the chest. Lungs clear to auscultation bilaterally. Heart regular rate and rhythm. He does have pectus excavatum. Chest wall nontender. He has had a prior sternotomy. Abdomen soft nontender normal bowel sounds no peritoneal signs. His abdomen is completely nontender benign. Moving all 4 extremities. Neurovascular intact. Nontender no edema. Normal muscle strength. Neurologic exam normal NIH of 0. Const Vital Signs: 03/01/21 21:28 03/01/21 21:29 Temperature 97.1 F L 97.1 F L Temperature Source Temporal Temporal Pulse Rate 84 84 Respiratory Rate 15 15 Blood Pressure 143/96 H 143/96 H Blood Pressure Mean 111 111 Pulse Ox 97 97 Oxygen Delivery Method Room Air Room Air Positive well nourished and well developed; Negative for obese, cachectic, contractures or unkempt General Appearance ED: well developed and NAD; Negative for unkempt, cachectic, contractures, cyanotic or diaphoretic Nutritional Appearance: Negative for cachectic or obese HEENT Reports normocephalic and moist mucous membranes atraumatic; Negative for trauma or tenderness Eyes PERRL and EOMs intact bilaterally Neck no lymphadenopathy, supple, no meningeal signs and no JVD General: Negative for tenderness Resp normal respiratory effort and clear to auscultation bilaterally Auscultation: Negative for rales, rhonchi or wheezes Cardio regular rate, regular rhythm, S1 normal heart sound, S2 normal heart sound and no murmurs GI non-tender and non-distended Auscultation: normoactive bowel sounds Palpation: soft; Negative for firm, tender, guarding or rigid Back/Spine no CVA tenderness General Back: Negative for CVA tenderness Extremity normal to inspection, full ROM and normal capillary refill Neuro oriented x3 and CN's II-XII intact bilaterally Sensorium / Orientation: awake, alert, oriented to person, oriented to place and oriented to time; Negative for orientation impaired, lethargic or stuporous Coordination / Balance: [id number] test normal and [id number] test normal Motor Exam: strength 5/5 throughout Psych mental status grossly normal Appearance: Negative for unkempt Mood & Affect: Negative for depressed Skin Lesions: no lesions Rashes: no rashes MDM MDM MDM Narrative Medical decision making narrative: 40-year-old male with a history of migraines clinically seems to have a migraine. The rest of exam is normal. He will be treated with IV fluids, Compazine, Benadryl and Toradol and reevaluated. Repeat exam patient doing well at 12:35 AM. Headache is resolved. Clinically is feeling better. Repeat exam is normal. Neurologic exam remains normal. No meningismus. Abdomen completely nontender and benign. Patient is comfortable being discharged home. Discharge Plan Triage Chief Complaint: Nausea/Vomiting ED Provider: Warren Kirby Dx/Rx/DC Orders Clinical Impression: Headache, migraine, Vomiting Instructions: Nausea Vomit Control, ED, Migraine (Classical) Prescriptions: No Action fluoxetine 20 MG capsule 20 mg PO DAILY RF: 0 risperidone 1 MG Tab.Rapdis 1 mg PO DAILY RF: 0 methylphenidate HCl [Methylin] 10 MG Tab.Chew 20 mg PO DAILY RF: 0 multivitamin 1 EACH tablet 1 tab PO DAILY RF: 0 insulin glargine 100 UNIT/ML insulin pen 17 unit SQ DAILY RF: 0 metoprolol succinate 25 MG tablet extended release 24 hr 1.5 tab PO BID RF: 0 nicotine (polacrilex) 2 MG gum 2 mg BC Q4H PRN (Reason: Smoking Cessation) RF: 0 glucose 4 GM tablet,chewable 4 gm PO PRN PRN (Reason: Hypoglycemia) RF: 0 hydroxyzine HCl 25 MG tablet 25 mg PO Q8H PRN (Reason: Rash/Topical Irritation) RF: 0 cholestyramine-aspartame 4 GM powder in packet 4 gm PO TID RF: 0 Potassium Chloride 20 MEQ Tab.Er.Prt 20 meq PO BID RF: 0 Primary Care Provider: Fitz Gómez Referrals: Fitz Gómez MD [Primary Care Provider] - Activity Restrictions/Additional Instructions: Plenty of fluids and rest. Return if feeling worse. Tylenol for any pain. Disposition Disposition: Home, Self Care
[2021-03-02] MEDS: Ketorolac 30 MG/ML Syringe IV (00:09)
[2021-03-02] MEDS: proCHLORPERazine 10 MG/2 ML Vial IV (00:10)
[2021-03-02] MEDS: DiphenhydrAMINE 50 MG/ML Syringe 25 MG IV (00:10)
[2021-03-02] MEDS: 0.9% Normal Saline 1,000 ML 1000 ML IV (00:13)
== END 2021-03-02 00:42 | disposition home or self-care (01) ==
LOC: ED 03-02 00:30
PROVIDERS: Emergency Provider Emergency Medicine; PCP Family Medicine
DX: G43.909 Migraine, unspecified, not intractable, without status migrainosus (principal); E11.22 Type 2 diabetes mellitus with diabetic chronic kidney disease; N18.9 Chronic kidney disease, unspecified; F17.210 Nicotine dependence, cigarettes, uncomplicated; Z79.4 Long term (current) use of insulin
CPT/HCPCS: 99284; J7030; A4216

== ENCOUNTER 2023-06-06 17:43 | Emergency (ER) | payer MEDICARE, MEDICAID, SELFPAY ==
[2023-06-06 17:43] VITALS: BP 157/88; PULSE 98; RESP 16; O2SAT 97
[2023-06-06 17:44] VITALS: BP 157/88; PULSE 98; RESP 16; TEMP 36.3; O2SAT 97; BMI 20.9
[2023-06-06] MEDS: SUMAtriptan 6 MG/0.5 ML Vial SC (18:59)
--- NOTE | 2023-06-06 19:09 | EX.ED.VIS.HA ---
HPI History of Present Illness Chief Complaint: Headache Informant: patient Narrative Narrative: Patient is a 42-year-old male with history of diabetes as well as migraines presenting for headache. Patient has a history of migraines and takes a medication that starts with an M . He thinks it is a prescription medicine. He notes that he developed a headache at work that is in the front of his head to the top. It is pounding in nature. Its gotten worse. He has associated vomiting. Did not have his medicine with him so he did not take it. He notes his headache is little bit worse than his typical migraines but denies any significant change from his prior migraines. Denies any head injuries. Denies any acute vision changes. Does have some mild photophobia. Denies any flulike symptoms, fever or chills. Denies any recent medication changes. No other complaints or concerns at this time. PFSH PFS Home Medications fluoxetine 20 mg capsule 20 mg PO DAILY Check with primary doctor 05/23/13 [History Last Taken Unknown] methylphenidate HCl 10 mg chewable tablet (Methylin) 20 mg PO DAILY Check with primary doctor 05/23/13 [History Last Taken Unknown] risperidone 1 mg disintegrating tablet 1 mg PO DAILY 05/23/13 [History Last Taken Unknown] Potassium Chloride 20 meq PO BID 01/14/19 [History Last Taken Unknown] cholestyramine-aspartame 4 gram oral powder for susp in a packet 4 gm PO TID 01/14/19 [History Last Taken Unknown] glucose 4 gram chewable tablet 4 gm PO PRN PRN Hypoglycemia 01/14/19 [History Last Taken Unknown] hydroxyzine HCl 25 mg tablet 25 mg PO Q8H PRN Rash/Topical Irritation 01/14/19 [History Last Taken Unknown] insulin glargine 100 unit/mL (3 mL) subcutaneous pen 17 unit SQ DAILY 01/14/19 [History Last Taken Unknown] metoprolol succinate 25 mg tablet,extended release 24 hr 1.5 tab PO BID 01/14/19 [History Last Taken Unknown] multivitamin 1 tab PO DAILY 01/14/19 [History Last Taken Unknown] nicotine (polacrilex) 2 mg gum 2 mg BC Q4H PRN Smoking Cessation 01/14/19 [History Last Taken Unknown] Allergy/AdvReac Type Severity Reaction Status Date / Time clindamycin AdvReac Unknown Verified 03/12/24 17:46 Social History Smoking Status: Current every day smoker tobacco type: cigarettes ROS ROS ED Constitutional Constitutional ED: Denies chills or fever(s) Eyes Eyes: Reports other Details: Mild photophobia ; Denies blurry vision or change in vision ENT ENT ED: Denies sore throat Cardiovascular Cardiovascular: Denies chest pain Respiratory/Chest Respiratory/Chest: Denies cough Gastrointestinal Gastrointestinal: Reports nausea and vomiting; Denies abdominal pain Neurologic Neurologic: Reports headache(s); Denies paresthesias or weakness Psychiatric Psychiatric: Denies anxiety or depression EXAM Physical Exam Const Vital Signs: 06/06/23 17:43 06/06/23 17:44 Temperature 97.4 F L Temperature Source Temporal Pulse Rate 98 98 Respiratory Rate 16 16 Blood Pressure 157/88 H 157/88 H Blood Pressure Mean 111 111 Pulse Ox 97 97 Oxygen Delivery Method Room Air Room Air Positive well nourished and well developed General Appearance ED: well developed and NAD HEENT Reports normocephalic and moist mucous membranes atraumatic Eyes PERRL and EOMs intact bilaterally General Eye ED: Negative for pale conjunctiva Neck supple and no meningeal signs Resp normal respiratory effort and clear to auscultation bilaterally Cardio regular rate and regular rhythm GI non-tender and non-distended Extremity normal to inspection General Extremety ED: Negative for edema General Extremity: Negative for edema Neuro oriented x3, CN's II-XII intact bilaterally and no sensory deficits noted Sensorium / Orientation: awake and alert Motor Exam: strength 5/5 throughout; Negative for general weakness Psych mental status grossly normal Skin Rashes: no rashes MDM MDM MDM Narrative Medical decision making narrative: Patient is evaluated for migraine headache. Has a history of migraine headaches. States besides the intensity being more severe than normal denies any change compared to his prior migraines. Do not think requires workup for this. Does not sound like a thunderclap headache. He does not have any meningeal signs or fever. Will start with a dose of Imitrex and reevaluate. Patient has improvement of headache and eventually has resolution of headache. Is discharged home with outpatient follow-up with his primary care doctor. Discharge Plan Triage Chief Complaint: Headache ED Provider: Karol Kennedy Dx/Rx/DC Orders Clinical Impression: Headache, classical migraine Instructions: ED, Migraine (Classical) Prescriptions: No Action fluoxetine 20 MG capsule 20 mg PO DAILY risperidone 1 MG tablet,disintegrating 1 mg PO DAILY methylphenidate HCl [Methylin] 10 MG tablet,chewable 20 mg PO DAILY multivitamin 1 EACH tablet 1 tab PO DAILY insulin glargine 100 UNIT/ML insulin pen 17 unit SQ DAILY metoprolol succinate 25 MG tablet extended release 24 hr 1.5 tab PO BID nicotine (polacrilex) 2 MG gum 2 mg BC Q4H PRN (Reason: Smoking Cessation) glucose 4 GM tablet,chewable 4 gm PO PRN PRN (Reason: Hypoglycemia) hydroxyzine HCl 25 MG tablet 25 mg PO Q8H PRN (Reason: Rash/Topical Irritation) cholestyramine-aspartame 4 GM powder in packet 4 gm PO TID Potassium Chloride 20 MEQ Tab.Er.Prt 20 meq PO BID Primary Care Provider: Fitz Gómez Referrals: Fitz Gómez MD [Primary Care Provider] - Activity Restrictions/Additional Instructions: Drink plenty of fluids. Please follow-up with your primary care doctor for further management of your headaches as it might be different medicines might be more beneficial for you. Disposition Disposition: Home, Self Care Discharge Date/Time: 06/06/23 20:35
== END 2023-06-06 20:35 | disposition home or self-care (01) ==
PROVIDERS: Emergency Provider Emergency Medicine; PCP Family Medicine; Visit Provider Emergency Medicine
DX: G43.909 Migraine, unspecified, not intractable, without status migrainosus (principal); E11.9 Type 2 diabetes mellitus without complications; Z79.4 Long term (current) use of insulin; F17.210 Nicotine dependence, cigarettes, uncomplicated
CPT/HCPCS: 96372; 99282; J3030

== ENCOUNTER 2024-03-27 13:12 | Emergency (ER) | payer MEDICARE, MEDICAID, SELFPAY ==
[2024-03-27 13:13] VITALS: BP 191/100; PULSE 99; RESP 15; TEMP 36.4; O2SAT 97; BMI 22.0
[2024-03-27 13:24] VITALS: BP 157/99
--- NOTE | 2024-03-27 13:59 | EDS_ITS ---
HPI History of Present Illness Chief Complaint: Headache Informant: patient Narrative Narrative: 43-year-old male presenting with headache that started several hours ago, feels like similar headaches he states they are debilitating when he has them, which is every once in a while. Is been getting them for years off-and-on. Prescribed rizatriptan for it and took 1 couple hours ago but it did not help. Sometimes it does. Did not take any other medications. No recent head injury, illness, fevers, neck stiffness, confusion, peripheral neurologic symptoms. Takes no anticoagulants. Does not know what his triggers are, he states when they occur they occur randomly. Denies any recent ingestion of red wine, chocolate, cheese. [facility] Medical History Hypertension Home Medications ?Medication ?Instructions ?Recorded ?Last Taken ?Type fluoxetine 20 mg capsule 20 mg PO DAILY Check with primary 05/23/13 Unknown History doctor methylphenidate HCl 10 mg chewable 20 mg PO DAILY Check with primary 05/23/13 Unknown History tablet (Methylin) doctor risperidone 1 mg disintegrating 1 mg PO DAILY 05/23/13 Unknown History tablet Potassium Chloride 20 meq PO BID 01/14/19 Unknown History cholestyramine-aspartame 4 gram 4 gm PO TID 01/14/19 Unknown History oral powder for susp in a packet glucose 4 gram chewable tablet 4 gm PO PRN PRN Hypoglycemia 01/14/19 Unknown History hydroxyzine HCl 25 mg tablet 25 mg PO Q8H PRN Rash/Topical 01/14/19 Unknown History Irritation insulin glargine 100 unit/mL (3 17 unit SQ DAILY 01/14/19 Unknown History mL) subcutaneous pen metoprolol succinate 25 mg 1.5 tab PO BID 01/14/19 Unknown History tablet,extended release 24 hr multivitamin 1 tab PO DAILY 01/14/19 Unknown History nicotine (polacrilex) 2 mg gum 2 mg BC Q4H PRN Smoking Cessation 01/14/19 Unknown History Allergy/AdvReac Type Severity Reaction Status Date / Time clindamycin AdvReac Unknown Verified 03/27/24 13:15 Social History (Updated 03/27/24 @ 13:23 by Nafisa Carreon) housing: other other: long-term Smoking Status: Current every day smoker tobacco type: cigarettes ROS ROS ED Constitutional Constitutional ED: Denies chills or fever(s) Eyes Eyes: Reports blurry vision bilateral and photophobia; Denies diplopia ENT ENT ED: Denies ear pain or sore throat Cardiovascular Cardiovascular: Denies chest pain or palpitations Respiratory/Chest Respiratory/Chest: Denies cough or dyspnea Gastrointestinal Gastrointestinal: Reports nausea; Denies abdominal pain, diarrhea or vomiting Genitourinary Genitourinary ED: Denies dysuria or urinary frequency Musculoskeletal Musculoskeletal: Denies back pain or myalgias Integumentary Denies abscess or rash Neurologic Neurologic: Reports headache(s); Denies paresthesias or weakness EXAM Physical Exam Const Vital Signs: 03/27/24 13:13 03/27/24 13:24 Temperature 97.5 F L Temperature Source Temporal Pulse Rate 99 Respiratory Rate 15 Blood Pressure 191/100 H 157/99 H Blood Pressure Mean 130 118 Pulse Ox 97 Oxygen Delivery Method Room Air HEENT Reports normocephalic and moist mucous membranes atraumatic Eyes PERRL, EOMs intact bilaterally and conjunctivae normal Eyes Narrative: photophobia Neck no lymphadenopathy, supple and no meningeal signs Resp normal respiratory effort and clear to auscultation bilaterally GI non-tender and non-distended Palpation: soft Extremity normal to inspection and full ROM Neuro oriented x3 and CN's II-XII intact bilaterally Sensorium / Orientation: awake and alert Speech: speech normal Gait (Neuro): normal gait Motor Exam: strength 5/5 throughout Psych mental status grossly normal Skin Lesions: no lesions Rashes: no rashes MDM MDM MDM Narrative Medical decision making narrative: Patient symptoms and exam are consistent with a migraine headache specially with the fact that he has had recurrent headaches similar to this for years. States he is here because they are debilitating when they occur and do not get better with his home medication. After giving him Toradol, Reglan, Benadryl, he is keenly alert, states that his headache is completely gone and he feels much better. His repeat blood pressure is 151/85. Initially he was 191/100. His mother is concerned because he accidentally took his morning medications last night, so he basically skipped his blood pressure medication. At this level this is not emergent and we do not need to treat the numbers, I reassured him and advised him to take his next scheduled dose of blood pressure medication when it is supposed to be taken and to follow-up for recheck. Discharge Plan Triage Chief Complaint: Headache ED Provider: Bill Patterson Dx/Rx/DC Orders Clinical Impression: Headache, migraine, Accelerated hypertension Instructions: Hypertension Dc, ED, Migraine (Classical) Prescriptions: No Action fluoxetine 20 MG capsule 20 mg PO DAILY risperidone 1 MG tablet,disintegrating 1 mg PO DAILY methylphenidate HCl [Methylin] 10 MG tablet,chewable 20 mg PO DAILY multivitamin 1 EACH tablet 1 tab PO DAILY insulin glargine 100 UNIT/ML insulin pen 17 unit SQ DAILY metoprolol succinate 25 MG tablet extended release 24 hr 1.5 tab PO BID nicotine (polacrilex) 2 MG gum 2 mg BC Q4H PRN (Reason: Smoking Cessation) glucose 4 GM tablet,chewable 4 gm PO PRN PRN (Reason: Hypoglycemia) hydroxyzine HCl 25 MG tablet 25 mg PO Q8H PRN (Reason: Rash/Topical Irritation) cholestyramine-aspartame 4 GM powder in packet 4 gm PO TID Potassium Chloride 20 MEQ Tab.Er.Prt 20 meq PO BID Primary Care Provider: Fitz Gómez Referrals: Fitz Gómez MD [Primary Care Provider] - (This or next week for BP recheck) Print Language: Tajik Disposition Disposition: Home, Self Care
[2024-03-27] MEDS: Ketorolac 30 MG/ML Syringe IV (14:22)
[2024-03-27] MEDS: DiphenhydrAMINE 50 MG/ML Syringe 25 MG IV (14:23)
[2024-03-27] MEDS: Metoclopramide 10 MG/2 ML Vial IV (14:23)
[2024-03-27 15:55] VITALS: BP 149/98; PULSE 68; RESP 16; TEMP 36.6; O2SAT 99
== END 2024-03-27 15:59 | disposition home or self-care (01) ==
PROVIDERS: Emergency Provider Emergency Medicine; PCP Family Medicine; Visit Provider Emergency Medicine
DX: G43.909 Migraine, unspecified, not intractable, without status migrainosus (principal); F17.210 Nicotine dependence, cigarettes, uncomplicated; I10 Essential (primary) hypertension
CPT/HCPCS: 96374; 96375; 99283; A4216

== ENCOUNTER 2024-08-04 19:58 | Emergency (ER) | payer MEDICARE, MEDICAID, SELFPAY ==
[2024-08-04 19:59] VITALS: BP 174/109; PULSE 101; RESP 18; TEMP 36.9; O2SAT 100; BMI 22.9
[2024-08-04] MEDS: Ketorolac 30 MG/ML Syringe IV (20:14)
[2024-08-04] MEDS: 0.9% Normal Saline (1000mL) 1,000 ML 999 ML IV (20:14)
[2024-08-04] MEDS: DiphenhydrAMINE 50 MG/ML Syringe 25 MG IV (20:14)
[2024-08-04] MEDS: proCHLORPERazine 10 MG/2 ML Vial IV (20:15)
--- NOTE | 2024-08-04 20:34 | ED.RN ---
Spoke to legal guardian via phone call to obtain consent and provided update on pt. Questions/concerns answered
[2024-08-04 21:06] VITALS: BP 142/81; PULSE 86; RESP 20; TEMP 36.6; O2SAT 96
--- NOTE | 2024-08-04 23:53 | EDS_ITS ---
HPI History of Present Illness Chief Complaint: Headache Informant: patient Onset/Context/Timing Onset: Today Timing: Continuous Current Severity: Severe Worsened by: Light Associated Symptoms Associated Symptoms: Nausea Narrative Narrative: Patient has a history of migraines. Was not able to keep down anything due to nausea and vomiting. Was not able to take his abortive medication. Prior similar symptoms: Yes Recent Illness/Hospitalization: No PFSH PFSH Medical History Heart valve problem Kidney disease Heart disease Emotional problems Allergies Hypertension Home Medications ?Medication ?Instructions ?Recorded ?Last Taken ?Type risperidone 1 mg disintegrating 1 mg PO DAILY 05/23/13 Unknown History tablet glucose 4 gram chewable tablet 4 g PO PRN PRN Hypoglyc emia 01/14/19 Unknown History multivitamin 1 tab PO DAILY 01/14/19 Unkn own History amlodipine 2.5 mg tablet 2.5 mg PO QDAY 06/04/24 Unkn own History atorvastatin 40 mg tablet 40 mg PO QDAY 06/04/24 Unkno wn History blood sugar diagnostic 06/04/24 Unknown History cetirizine 10 mg capsule (Zyrtec) 10 mg PO QDAY PRN Unknown History cholecalciferol (vitamin D3) 50 50 mcg PO QDAY 5 Unknown History mcg (2,000 unit) capsule fluoxetine 20 mg capsule 60 mg PO DAILY Check with pr imary 06/04/24 Unknown History doctor glucagon 1 mg/0.2 mL subcutaneous 1 mg subcut ONCE 02/18 Unknown History auto-injector (Gvoke HypoPen 2-Pack) insulin glargine 100 unit/mL (3 22 unit subcut DAILY 0 06/04/24 Unknown History mL) subcutaneous pen insulin lispro 100 unit/mL 10 unit subcut TID 06/04/24 Unknown History subcutaneous pen lancets 06/04/24 Unknown History lisdexamfetamine 30 mg capsule 30 mg PO QAM 06/04/24 U nknown History (Vyvanse) naltrexone 50 mg tablet 50 mg PO QDAY 06/04/24 Unkno wn History pantoprazole 40 mg granules 40 mg PO QDAY 06/04/24 Unk nown History delayed-release for susp in packet pen needle, diabetic 31 gauge x 06/04/24 Unknown Hist ory 5/16 (BD Ultra-Fine Short Pen Needle) rizatriptan 10 mg tablet 10 mg PO ONCE PRN migraine h eadache 06/04/24 Unknown History ursodiol 300 mg capsule 300 mg PO BID 06/04/24 Unkno wn History blood-glucose sensor (Dexcom G6 #3 ea 07/01/24 Unknown Rx Sensor device) blood-glucose transmitter (Dexcom #1 ea 07/01/24 Unkno wn Rx G6 Transmitter device) insulin pump cart,auto,BT,G6/7 #10 ea 07/01/24 Unknown Rx (Omnipod 5 G6-G7 Pods (Gen 5) subcutaneous cartridge) insulin pump cartridge,auto #1 ea 07/01/24 Unknown Rx dose,BT,G6/G7 with controller subcutaneous (Omnipod 5 G6-G7 Intro Kit(Gen 5) subcutaneous cartridge and controller) insulin lispro 100 unit/mL 60 unit (0.6 mL) subcut MAC LY #60 07/11/24 Unknown Rx subcutaneous solution mL Allergy/AdvReac Type Severity Reaction Status Date / Time clindamycin AdvReac Unknown Verified 08/04/24 20:00 Social History housing: other other: [facility] Smoking Status: Current every day smoker tobacco type: cigarettes alcohol intake: never substance use type: does not use what type of physical activity do you participate in: walking and bicycling ROS ROS ED Constitutional Constitutional ED: Denies chills or fever(s) Eyes Eyes: Denies blurry vision or change in vision ENT ENT ED: Denies ear pain or rhinorrhea Cardiovascular Cardiovascular: Denies chest pain Respiratory/Chest Respiratory/Chest: Denies dyspnea Gastrointestinal Gastrointestinal: Reports nausea and vomiting; Denies abdominal pain Musculoskeletal Musculoskeletal: Denies arthralgias, myalgias or neck pain Integumentary Denies rash Neurologic Neurologic: Reports headache(s); Denies paresthesias or weakness EXAM Physical Exam Const Vital Signs: 08/04/24 19:59 08/04/24 21:06 Temperature 98.5 F 98 F Temperature Source Oral Pulse Rate 101 H 86 Respiratory Rate 18 20 H Blood Pressure 174/109 H 142/81 H Blood Pressure Mean 130 101 Pulse Ox 100 96 Oxygen Delivery Method Room Air Positive well nourished and well developed General Appearance ED: well developed HEENT Reports moist mucous membranes Eyes PERRL and EOMs intact bilaterally Resp normal respiratory effort Cardio regular rate GI non-distended Extremity normal to inspection Neuro oriented x3, CN's II-XII intact bilaterally and no sensory deficits noted Sensorium / Orientation: alert Motor Exam: strength 5/5 throughout Psych mental status grossly normal Skin no rashes or lesions noted MDM MDM MDM Narrative Medical decision making narrative: Patient presents with his typical migraine. No indication for any diagnostic testing. The migraine cocktail has worked in the past and so I recommended trying it today. After the patient received his medications and fluid through the IV, I reassessed him and he was feeling much better. Patient was feeling better and requesting discharge. He will go home to rest, stay hydrated. Monitor his glucose. Take his medications as prescribed. Return for any new or worsening issues. Discharge home. Impression #1 migraine headache Discharge Plan Triage Chief Complaint: Headache ED Provider: Andry Warren Dx/Rx/DC Orders Clinical Impression: Headache Instructions: ED Headache Unspecified Prescriptions: No Action insulin lispro 100 unit/mL insulin pen 10 unit subcut TID (DME) pen needle, diabetic [BD Ultra-Fine Short Pen Needle] 31 gauge x 5/16 needle See Rx Instructions .ROUTE Rx Instructions: As directed cholecalciferol (vitamin D3) 50 mcg (2,000 unit) capsule 50 mcg PO QDAY pantoprazole [address] for susp in packet 40 mg PO QDAY atorvastatin 40 mg tablet 40 mg PO QDAY ursodiol 300 mg capsule 300 mg PO BID amlodipine 2.5 mg tablet 2.5 mg PO QDAY Gvoke HypoPen 2-Pack 1 mg/0.2 mL auto-injector 1 mg subcut ONCE Rx Instructions: as a single dose; may repeat once after 15 minutes if no response (DME) blood sugar diagnostic Strip See Rx Instructions .ROUTE Rx Instructions: As directed (DME) lancets Misc See Rx Instructions .ROUTE Rx Instructions: As directed naltrexone 50 mg tablet 50 mg PO QDAY rizatriptan 10 mg tablet 10 mg PO ONCE PRN (Reason: migraine headache) Rx Instructions: as a single dose lisdexamfetamine [Vyvanse] 30 mg capsule 30 mg PO QAM Zyrtec 10 mg capsule 10 mg PO QDAY PRN (DME) Omnipod 5 G6-G7 Intro Kt(Gen5) Cartridge See Rx Instructions .Route Qty: 1 0RF Rx Instructions: As directed (DME) Omnipod 5 G6-G7 Pods (Gen 5) Cartridge See Rx Instructions .Route Qty: 10 5RF Rx Instructions: 1 pod q 72 hours (DME) Dexcom G6 Sensor Device See Rx Instructions .Route Qty: 3 5RF Rx Instructions: 1 sensor q 10 days (DME) Dexcom G6 Transmitter Device See Rx Instructions .Route Qty: 1 1RF Rx Instructions: As directed risperidone 1 MG tablet,disintegrating 1 mg PO DAILY fluoxetine 20 mg capsule 60 mg PO DAILY multivitamin 1 EACH tablet 1 tab PO DAILY glucose 4 GM tablet,chewable 4 g PO PRN PRN (Reason: Hypoglycemia) insulin glargine 100 unit/mL (3 mL) insulin pen 22 unit subcut DAILY insulin lispro 100 unit/mL solution 60 unit subcut DAILY Qty: 60 1RF Rx Instructions: via insulin pump Primary Care Provider: Fitz Gómez Referrals: Fitz Gómez MD [Primary Care Provider] - Print Language: Taiwanese Disposition Disposition: Home, Self Care Discharge Date/Time: 08/04/24 21:06
== END 2024-08-04 21:06 | disposition home or self-care (01) ==
PROVIDERS: Emergency Provider Emergency Medicine; PCP Family Medicine; Visit Provider Emergency Medicine
DX: R51.9 Headache, unspecified (principal); F17.210 Nicotine dependence, cigarettes, uncomplicated; I10 Essential (primary) hypertension
CPT/HCPCS: 96361; 96374; 96375; 99283; A4216

== ENCOUNTER 2024-12-30 17:05 | Emergency (ER) | payer MEDICARE, MEDICAID, SELFPAY ==
[2024-12-30 17:05] VITALS: BP 136/88; PULSE 85; RESP 16; TEMP 36.8; O2SAT 99; BMI 21.3
--- NOTE | 2024-12-30 17:33 | EX.ED.VIS.HA ---
HPI History of Present Illness Chief Complaint: Headache Narrative Narrative: Patient is a 44-year-old male presenting to the emergency department for a headache. Patient presents with [employer] testing [employer]. Patient has a past medical history of migraines, CKD, hypertension, type 1 diabetes on insulin pump. Patient states around 2 PM he started to have a migraine that is typical for him. States that it did not come on suddenly. It is mainly frontal to left sided. Describes it as a pounding sensation. Endorses nausea with a few episodes of nonbloody, nonbilious emesis. Denies any fever, vision changes, neck pain or focal numbness or weakness. Patient did take 2 doses of triptans without any improvement of his symptoms. [facility] Medical History Heart valve problem Kidney disease Heart disease Emotional problems Allergies Hypertension Home Medications ?Medication ?Instructions ?Recorded ?Last Taken ?Type risperidone 1 mg disintegrating 1 mg PO DAILY 05/23/13 Unknown History tablet glucose 4 gram chewable tablet 4 g PO PRN PRN Hypoglycemia 01/14/19 Unknown History multivitamin 1 tab PO DAILY 01/14/19 Unknown History amlodipine 2.5 mg tablet 2.5 mg PO QDAY 06/04/24 Unknown History atorvastatin 40 mg tablet 40 mg PO QDAY 06/04/24 Unknown History blood sugar diagnostic 06/04/24 Unknown History cetirizine 10 mg capsule (Zyrtec) 10 mg PO QDAY PRN 06/04/24 Unknown History cholecalciferol (vitamin D3) 50 50 mcg PO QDAY 06/04/24 Unknown History mcg (2,000 unit) capsule fluoxetine 20 mg capsule 60 mg PO DAILY Check with primary 06/04/24 Unknown History doctor glucagon 1 mg/0.2 mL subcutaneous 1 mg subcut ONCE 06/04/24 Unknown History auto-injector (Gvoke HypoPen 2-Pack) lancets 06/04/24 Unknown History lisdexamfetamine 30 mg capsule 30 mg PO QAM 06/04/24 Unknown History (Vyvanse) naltrexone 50 mg tablet 50 mg PO QDAY 06/04/24 Unknown History pantoprazole 40 mg granules 40 mg PO QDAY 06/04/24 Unknown History delayed-release for susp in packet pen needle, diabetic 31 gauge x 06/04/24 Unknown History 5/16 (BD Ultra-Fine Short Pen Needle) rizatriptan 10 mg tablet 10 mg PO ONCE PRN migraine headache 06/04/24 Unknown History ursodiol 300 mg capsule 300 mg PO BID 06/04/24 Unknown History insulin pump cartridge,auto #1 ea 07/01/24 Unknown Rx dose,BT,G6/G7 with controller subcutaneous (Omnipod 5 G6-G7 Intro Kit(Gen 5) subcutaneous cartridge and controller) losartan 25 mg tablet 25 mg PO BID 10/10/24 Unknown History insulin degludec 100 unit/mL (3 5 unit (0.05 mL) subcut QDAY #15 mL 11/04/24 Unknown Rx mL) subcutaneous pen (Tresiba FlexTouch U-100 insulin) insulin lispro 100 unit/mL 3 unit (0.03 mL) subcut .with 11/04/24 Unknown Rx subcutaneous solution meals #10 mL blood-glucose sensor (Dexcom G6 #3 ea 12/04/24 Unknown Rx Sensor device) blood-glucose transmitter (Dexcom #1 ea 12/04/24 Unknown Rx G6 Transmitter device) insulin pump cart,auto,BT,G6/7 #10 ea 12/25/24 Unknown Rx (Omnipod 5 G6-G7 Pods (Gen 5) subcutaneous cartridge) Allergy/AdvReac Type Severity Reaction Status Date / Time clindamycin AdvReac Unknown Verified 12/30/24 17:06 Family History no significant family his Social History housing: other other: assisted Smoking Status: Current every day smoker tobacco type: cigarettes alcohol intake: never substance use type: does not use what type of physical activity do you participate in: walking and bicycling ROS ROS ED ROS Narrative See HPI EXAM Physical Exam Narrative Exam Narrative: Vital signs: Reviewed General: Alert and oriented x 3. No acute distress HEENT: Head is normocephalic and atraumatic, sinuses nontender, pupils 2 mm equal round and reactive. Nares are patent. Oropharynx and throat exams normal. Neck: Supple without lymphadenopathy nontender. Normal range of motion of neck. No nuchal rigidity. Cardiovascular: Regular rate and rhythm, no murmurs. No rubs or gallops. Normal S1 and S2 Respiratory: Clear to auscultation bilaterally. No wheezes, rales, rhonchi Abdominal: Soft and nontender. Normal bowel sounds. No guarding or rebound. Nonsurgical abdomen Extremities: No tenderness. No bruising. Normal range of motion. Normal sensation. Skin: No rash or redness. Neurological: Cranial nerves II through XII are grossly intact. Normal strength and sensation. Normal cerebellar function The rest of the physical exam is unremarkable Const Vital Signs: 12/30/24 17:05 12/30/24 19:05 12/30/24 19:06 Temperature 98.2 F 98.2 F Temperature Source Oral Pulse Rate 85 74 74 Respiratory Rate 16 16 Blood Pressure 136/88 H 141/85 H 141/85 H Blood Pressure Mean 104 103 103 Pulse Ox 99 98 98 Oxygen Delivery Method Room Air Room Air Neuro oriented x3, CN's II-XII intact bilaterally and no sensory deficits noted Sensorium / Orientation: awake, alert, oriented to person, oriented to place and oriented to time Coordination / Balance: [id number] test normal and [id number] test normal Speech: speech normal Gait (Neuro): normal gait Sensory Exam: No sensory level loss detected Motor Exam: strength 5/5 throughout MDM MDM MDM Narrative Medical decision making narrative: Patient is a 44-year-old male presenting to the emergency department for a migraine. Patient was seen and examined. Vitals are stable. Patient resting in bed comfortably no acute distress. Patient's neurologic exam is unremarkable. Patient states that this migraine feels similar to prior migraines. Did not start as a thunderclap headache. Do not think this is SAH or intracranial bleed. No head trauma. Do not think the patient needs brain imaging at this time. No fever, nuchal rigidity or altered mental status to suspect meningitis or encephalitis. Patient given a migraine cocktail including fluids, Toradol, Compazine and Benadryl. Patient had brain imaging in 2013 with no noted mass. Patient reevaluated after migraine cocktail and notes improvement in his symptoms. Ambulates without difficulty. Patient discharged from the Emergency Department. I do not feel that the patient's evaluation reveals any acute reason for admission at this time. I instructed them to either follow-up with their primary care physician or promptly return to the Emergency Department for reevaluation should symptoms worsen or new symptoms develop. I explained what symptoms would indicate the need to return to the emergency department. Shared decision making was used. The patient voiced understanding of the treatment plan and is agreeable with it. 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) Discharge Plan Triage Chief Complaint: Headache ED Provider: Melodie Castro Dx/Rx/DC Orders Clinical Impression: Migraine Instructions: ED, Migraine (Classical) Prescriptions: No Action (DME) pen needle, diabetic [BD Ultra-Fine Short Pen Needle] 31 gauge x 5/16 needle See Rx Instructions .Route Rx Instructions: As directed cholecalciferol (vitamin D3) 50 mcg (2,000 unit) capsule 50 mcg PO QDAY pantoprazole [address] for susp in packet 40 mg PO QDAY atorvastatin 40 mg tablet 40 mg PO QDAY ursodiol 300 mg capsule 300 mg PO BID amlodipine 2.5 mg tablet 2.5 mg PO QDAY Gvoke HypoPen 2-Pack 1 mg/0.2 mL auto-injector 1 mg subcut ONCE Rx Instructions: as a single dose; may repeat once after 15 minutes if no response (DME) blood sugar diagnostic Strip See Rx Instructions .Route Rx Instructions: As directed (DME) lancets Misc See Rx Instructions .Route Rx Instructions: As directed naltrexone 50 mg tablet 50 mg PO QDAY rizatriptan 10 mg tablet 10 mg PO ONCE PRN (Reason: migraine headache) Rx Instructions: as a single dose lisdexamfetamine [Vyvanse] 30 mg capsule 30 mg PO QAM Zyrtec 10 mg capsule 10 mg PO QDAY PRN (DME) Omnipod 5 G6-G7 Intro Kt(Gen5) Cartridge See Rx Instructions .Route Qty: 1 0RF Rx Instructions: As directed losartan 25 mg tablet 25 mg PO BID risperidone 1 MG tablet,disintegrating 1 mg PO DAILY fluoxetine 20 mg capsule 60 mg PO DAILY multivitamin 1 EACH tablet 1 tab PO DAILY glucose 4 GM tablet,chewable 4 g PO PRN PRN (Reason: Hypoglycemia) insulin degludec [Tresiba FlexTouch U-100] 100 unit/mL (3 mL) insulin pen 5 unit subcut QDAY Qty: 15 0RF insulin lispro 100 unit/mL solution 3 unit subcut .with meals Qty: 10 1RF Rx Instructions: via insulin pump (DME) Dexcom G6 Sensor Device See Rx Instructions .Route Qty: 3 5RF Rx Instructions: 1 sensor q 10 days (DME) Dexcom G6 Transmitter Device See Rx Instructions .Route Qty: 1 1RF Rx Instructions: As directed (DME) Omnipod 5 G6-G7 Pods (Gen 5) Cartridge See Rx Instructions .Route Qty: 10 5RF Rx Instructions: 1 pod q 72 hours Primary Care Provider: Fitz Gómez Referrals: Fitz Gómez MD [Primary Care Provider, [facility]] - As soon as possible Activity Restrictions/Additional Instructions: Your evaluation in the Emergency Department did not reveal any acute reason for admission. However, I want to emphasize that you may be early in the course of a disease process or illness even if it is not present. For this reason you should follow-up within 24 hours for reevaluation with either your primary care physician or if necessary back here in the Emergency Department. You should return to the Emergency Department immediately if your symptoms worsen or new symptoms develop. Print Language: Barbadian Disposition Disposition: Home, Self Care Discharge Date/Time: 12/30/24 19:12
[2024-12-30] MEDS: DiphenhydrAMINE 50 MG/ML Syringe 25 MG IV (17:43)
[2024-12-30] MEDS: 0.9% Normal Saline (1000mL) 1,000 ML 1000 ML IV (17:46)
[2024-12-30 19:05] VITALS: BP 141/85; PULSE 74; O2SAT 98
[2024-12-30 19:06] VITALS: BP 141/85; PULSE 74; RESP 16; TEMP 36.8; O2SAT 98
== END 2024-12-30 19:12 | disposition home or self-care (01) ==
PROVIDERS: Emergency Provider Student in an Organized Health Care Education/Training Program; PCP Family Medicine; Visit Provider Student in an Organized Health Care Education/Training Program
DX: G43.909 Migraine, unspecified, not intractable, without status migrainosus (principal); E10.22 Type 1 diabetes mellitus with diabetic chronic kidney disease; F17.210 Nicotine dependence, cigarettes, uncomplicated; I12.9 Hypertensive chronic kidney disease with stage 1 through stage 4 chronic kidney disease, or unspecified chronic kidney disease; N18.9 Chronic kidney disease, unspecified; Z96.41 Presence of insulin pump (external) (internal)
CPT/HCPCS: 96361; 96374; 96375; 99283; A4216